=== PATIENT | female | born 1955 | race African-American/Black ===

== ENCOUNTER 2017-03-01 14:44 | Observation (INO) | payer MEDICAID ==
[~2017-03-01] VITALS: Ht 165.1 cm; Wt 85.0 kg
[~2017-03-01 14:44] MED LIST: LEVEMIR SQ; LISI-360 PO; NOVO7030P2 SQ; PROT40TA PO; RANI150 PO; SUCR1TAB PO; TYLE500T PO; ZOFR4TAB3 PO
[2017-03-01 15:13] VITALS: BP 124/65; PULSE 108; RESP 18; TEMP 98.7; O2SAT 99
[2017-03-01] MEDS ORDERED: SODIUM CHLORIDE 0.9% FLUSH 10 ML FLUSH IVF PRN (15:15)
[2017-03-01 15:18] VITALS: BP_SYST 118; BP_SYST 124; BP_DIAS 61; BP_DIAS 94; PULSE 112
[2017-03-01] MEDS: SODIUM CHLOR 0.9% 1000 ML INJ 1,000 ML IV SCH ×3 (15:27→20:47)
--- NOTE | 2017-03-01 15:34 | PD ---
HPI Chief Complaint: Chest Pain Time Seen by Provider: 17:11 Travel History International Travel<30 days: No Contact w/Intl Traveler<30days: No Traveled to known affect area: No History of Present Illness HPI This is a 61-year-old female history of hypertension, hyperlipidemia, diabetes mellitus, who presents at the request of her physician for admission to the hospital. The patient states she was seen at her doctor's office today and told him she was not feeling well. She's been having upper respiratory symptoms for the last 2-1/2 weeks with associated cough. She states that she caught a cold when she was visiting her relatives. She does report that she's just not been feeling well for the last several days. She reports chest pain however reports it's worse with cough. She reports no production and her cough. She was noted to have a blood sugar in the 300s at the doctor's office which is not normal for her. Patient also reports that she's been generally weak over the last several days as well. PFSH Past Medical History Blood Disorders: No Cancer: No Cardiovascular Problems: Yes (ANGINA) High Cholesterol: Yes Diabetes: Yes Patient Takes Glucophage: No Diminished Hearing: No Endocrine: Yes Fibromyalgia: Yes Gastrointestinal Disorders: No Genitourinary: No Headaches: Yes Hypertension: Yes Immune Disorder: No Implanted Vascular Access Dvce: No Musculoskeletal: Yes Neurologic: Yes (NEUROPATHY, VERTIGO,SYNCOPE) Psychiatric: No Reproductive: No Respiratory: No Immunizations Current: No ?: Not Menopausal: Yes : 4 Para: 4 Tubal Ligation: Yes Past Surgical History Gynecologic Surgery: Yes Hysterectomy: Yes Other Surgery: Yes Social History Alcohol Use: Yes (occasional ) Tobacco Use: No (quit) Substance Use: No (denies) Allergies-Medications (Allergen,Severity, Reaction): Coded Allergies: Codeine (Verified Allergy, Intermediate, Rash, 03/01/17) Reported Meds & Prescriptions Reported Meds & Active Scripts Active Reported Zofran Odt (Ondansetron Odt) 4 Mg Tab 4 Mg SL Q6HR PRN Topamax (Topiramate) 25 Mg Tab 25 Mg PO BID Carafate (Sucralfate) 1 Gm Tab 1 Gm PO BIDAC On empty stomach Zantac (Ranitidine HCl) 150 Mg Tab 150 Mg PO BID Flonase Nasal [place] (Fluticasone Nasal [place]) 50 Mcg/Act [place]olt 2 [place] EACH NARE DAILY Gabapentin 300 Mg Cap 300 Mg PO TID Lantus Inj (Insulin Glargine) 1,000 Unit/10 Ml Vial 30 Units SQ HS Humalog Inj (Insulin Human Lispro) 1,000 Unit/10 Ml Vial 5-9 Units SQ TIDAC SLIDING SCALE: 150-200=5 units, 201-250=7 units, 251-300=9 units Levemir Inj (Insulin Detemir) 1,000 unit/ 10 ML Vial 20 Units SQ HS Do not mix with any other Insulin. Symbicort Inh (Budesonide/Formoterol Fumarate) 160-4.5 Mcg/Act Aero 2 Puff INH Q12HR Pantoprazole (Pantoprazole Sodium) 40 Mg Tab 40 Mg PO BID Lisinopril 10 Mg Tab 10 Mg PO DAILY Singulair (Montelukast Sodium) 10 Mg Tab 10 Mg PO HS Review of Systems Except as stated in HPI: all other systems reviewed are Neg General / Constitutional: No: Fever, Chills Eyes: No: Blurred Vision, Photophobia HENT: Positive: Neck Pain, No: Headaches, Neck Stiffness (neck pain from coughing.) Cardiovascular: Positive: Chest Pain or Discomfort (also associated with cough) , No: Palpitations Respiratory: Positive: Cough, No: Shortness of Breath Gastrointestinal: No: Nausea, Abdominal Pain Musculoskeletal: Positive: Weakness (and relies), Pain (neck pain she reports from coughing), No: Myalgias Skin: No Rash, No Itching Neurologic: Positive: Weakness, No: Dizziness, Headache (unrealized), Change in Mentation Physical Exam Narrative GENERAL: Developed well-nourished female who appears ill in no acute respiratory distress. SKIN: Focused skin assessment warm/dry. HEAD: Atraumatic. Normocephalic. EYES: No scleral icterus. No injection or drainage. ENT: Mucous membranes pink and moist. NECK: Trachea midline. Supple. No JVD. CARDIOVASCULAR: Tachycardic with a rate in the low 100s. 106 on my examination. No obvious murmurs gallops rubs. RESPIRATORY: No accessory muscle use. Clear to auscultation. Breath sounds equal bilaterally. Decreased respiratory effort GASTROINTESTINAL: Abdomen soft, non-tender, nondistended. MUSCULOSKELETAL: No obvious deformities. No clubbing. No cyanosis. No edema. NEUROLOGICAL: Awake and alert. No obvious cranial nerve deficits. Motor grossly within normal limits. Normal speech. PSYCHIATRIC: Appropriate mood and affect; insight and judgment normal. Data Data Last Documented VS Vital Signs Date Time Temp Pulse Resp B/P Pulse Ox O2 Delivery O2 Flow Rate FiO2 03/01/17 15:18 112 124/61 118/94 03/01/17 15:13 18 99 Room Air 03/01/17 15:13 98.7 Orders Electrocardiogram (03/01/17 15:09) Basic Metabolic Panel (Bmp) (03/01/17 15:09) Ckmb (Isoenzyme) Profile (03/01/17 15:09) Complete Blood Count With Diff (03/01/17 15:) Magnesium (Mg) (03/01/17 15:) Prothrombin Time / Inr (Pt) (03/01/17 15:09) Act Partial Throm Time (Ptt) (03/01/17 15:09) Troponin I (03/01/17 15:) Chest, Single Ap (03/01/17 15:) Ecg Monitoring (03/01/17 15:09) Bilateral Bp Monitoring (03/01/17 15:09) Iv Access Insert/Monitor (03/01/17 15:) Oximetry (03/01/17 15:09) Oxygen Administration (03/01/17 15:09) Sodium Chloride 0.9% Flush (Ns Flush) (03/01/17 15:15) Sodium Chlor 0.9% 1000 Ml Inj (Ns 1000 M (03/01/17 15:30) D-Dimer (03/01/17 15:34) Insulin Human Regular Inj (Novolin R Inj (03/01/17 16:45) Admit Order (Ed Use Only) (03/01/17 17:25) Hydromorphone Pf Inj (Dilaudid Pf Inj) (03/01/17 17:30) Labs Laboratory Tests Test 03/01/17 15:10 White Blood Count 7.4 TH/MM3 Red Blood Count 5.46 MIL/MM3 Hemoglobin 10.8 GM/DL Hematocrit 34.3 % Mean Corpuscular Volume 62.8 FL Mean Corpuscular Hemoglobin 19.7 PG Mean Corpuscular Hemoglobin 31.4 % Concent Red Cell Distribution Width 18.3 % Platelet Count 182 TH/MM3 Mean Platelet Volume 9.4 FL Neutrophils (%) (Auto) 53.1 % Lymphocytes (%) (Auto) 37.4 % Monocytes (%) (Auto) 7.2 % Eosinophils (%) (Auto) 1.6 % Basophils (%) (Auto) 0.7 % Neutrophils # (Auto) 4.0 TH/MM3 Lymphocytes # (Auto) 2.8 TH/MM3 Monocytes # (Auto) 0.5 TH/MM3 Eosinophils # (Auto) 0.1 TH/MM3 Basophils # (Auto) 0.0 TH/MM3 CBC Comment AUTO DIFF Differential Total Cells 100 Counted Neutrophils % (Manual) 44 % Band Neutrophils % 6 % Lymphocytes % 41 % Monocytes % 6 % Eosinophils % 3 % Neutrophils # (Manual) 3.7 TH/MM3 Nucleated Red Blood Cells 1 /100 WBC Differential Comment FINAL DIFF MANUAL Toxic Vacuolation PRESENT Platelet Estimate NORMAL Platelet Morphology Comment ENLARGED Tear Drop Cells 1+ Stomatocytes 1+ Keratocytes OCC Prothrombin Time 10.7 SEC Prothromb Time International 1.0 RATIO Ratio Activated Partial 24.0 SEC Thromboplast Time Sodium Level 133 MEQ/L Potassium Level 4.8 MEQ/L Chloride Level 97 MEQ/L Carbon Dioxide Level 29.1 MEQ/L Anion Gap 7 MEQ/L Blood Urea Nitrogen 21 MG/DL Creatinine 0.92 MG/DL Estimat Glomerular Filtration 75 ML/MIN Rate Random Glucose 299 MG/DL Calcium Level 9.7 MG/DL Magnesium Level 2.2 MG/DL Total Creatine Kinase 73 U/L Troponin I LESS THAN 0.02 NG/ML MDM Medical Decision Making Medical Screen Exam Complete: Yes Emergency Medical Condition: Yes Differential Diagnosis ACS versus PE versus bronchitis versus musculoskeletal pain. Narrative Course 61-year-old female history of diabetes mellitus, hypertension, edema, was sent here for admission for chest pain with EKG changes. The patient has very atypical chest pain. She was noted to have a blood sugar in the 300s. Given this and given the fact that she was sent here by her doctor for evaluation, I feel is prudent to bring her under observation, rule her out, get her blood sugar under control. Her physician does not come to [facility] as he has an office in [place]. She has been given 6 units of Regular Insulin. She's also been given I V fluids. I spoke with the team the resident service and they 're willing to admit the patient under observation to their service. Diagnosis Primary Impression: Atypical chest pain Additional Impression: Uncontrolled diabetes mellitus with hyperglycemia Ibrahima De Dios MD Mar 01, 2017 15:34
[2017-03-01 15:45] LABS: PROTHROMBIN TIME - PATIENT 10.7 SEC (9.8-11.6)
[2017-03-01] MEDS ORDERED: HUMALOG SQ (15:48)
[2017-03-01] MEDS ORDERED: PANT40TA3 PO (15:48)
[2017-03-01] MEDS ORDERED: CARA1TAB6 PO (15:48)
[2017-03-01] MEDS ORDERED: TOPA25TA8 PO (15:48)
[2017-03-01] MEDS ORDERED: FLUT1SPR5 EACH NARE (15:48)
[2017-03-01] MEDS ORDERED: MONT10TA2 PO (15:48)
[2017-03-01] MEDS ORDERED: GABA300C5 PO (15:48)
[2017-03-01] MEDS ORDERED: ZOFR4TAB3 SL (15:48)
[2017-03-01] MEDS ORDERED: LEVEMIR SQ (15:48)
[2017-03-01] MEDS ORDERED: LISI10TA3 PO (15:48)
[2017-03-01] MEDS ORDERED: LANTUS2P SQ (15:48)
[2017-03-01] MEDS ORDERED: ZANT150T2 PO (15:48)
[2017-03-01] MEDS ORDERED: SYMB160A INH (15:48)
[2017-03-01 15:49] LABS: BASOPHIL % 0.7 % (0.0-2.0); EOSINOPHIL # 0.1 TH/MM3 (0-0.4); EOSINOPHIL % 1.6 % (0.0-4.0); HEMATOCRIT 34.3 % (35.0-46.0); LYMPH % 37.4 % (9.0-44.0); LYMPHOCYTE # 2.8 TH/MM3 (1.0-4.8); MEAN CELL VOLUME 62.8 FL (80.0-100.0); MEAN CORPUSCULAR HEMOGLOBIN 19.7 PG (27.0-34.0); MEAN CORPUSCULAR HGB CONC 31.4 % (32.0-36.0); MONO % 7.2 % (0.0-8.0); NEUT % 53.1 % (16.0-70.0); PLATELET COUNT 182 TH/MM3 (150-450); RED BLOOD COUNT 5.46 MIL/MM3 (4.00-5.30); RED CELL DISTRIBUTION WIDTH 18.3 % (11.6-17.2); WHITE BLOOD COUNT 7.4 TH/MM3 (4.0-11.0)
[2017-03-01 15:51] LABS: HEMO FLAGS AUTO DIFF
[2017-03-01 16:18] LABS: ANION GAP 7 MEQ/L (5-15); BICARBONATE 29.1 MEQ/L (21.0-32.0); BLOOD UREA NITROGEN 21 MG/DL (7-18); CHLORIDE 97 MEQ/L (98-107); GLOMERULAR FILTRATION RATE 75 ML/MIN (>89); MAGNESIUM 2.2 MG/DL (1.5-2.5); POTASSIUM 4.8 MEQ/L (3.5-5.1); SODIUM (NA) 133 MEQ/L (136-145)
[2017-03-01 16:19] LABS: CREATINE KINASE 73 U/L (26-192)
--- NOTE | 2017-03-01 16:33 | RADRPT ---
EXAM DATE/TIME: 03/01/2017 15:06 [facility] COMPARISON: CHEST SINGLE AP, November 04, 2014, 17:25. INDICATIONS : Chest pain. Weakness. MEDICAL HISTORY : Asthma. SURGICAL HISTORY : None. ENCOUNTER: Initial ACUITY: 1 day PAIN SCORE: 8/10 LOCATION: Bilateral chest FINDINGS: A single view of the chest demonstrates the lungs to be symmetrically aerated without evidence of mas s, infiltrate or effusion. Heart size is upper limits of normal and well compensated. Osseous struct ures are intact with stable degenerative spurring of the dorsal spine. CONCLUSION: Stable chest. No acute cardiopulmonary process Terrence Leon MD on March 01, 2017 at 16:31 Board Certified Radiologist. This report was verified electronically.
[2017-03-01 16:44] LABS: BANDS 6 % (0-6); CORRECTED NUCLEATED RBC 1 /100 WBC (0-0); EOSINOPHILS 3 % (0-4); NEUTROPHIL # MANUAL DIFF 3.7 TH/MM3 (1.8-7.7); POLYS (SEG NEUTROPHILS) 44 % (16-70); WBC DIFF SAMPLE 100
[2017-03-01] MEDS ORDERED: INSULIN HUMAN REGULAR 1,000 UNITS/10 ML VIAL IV PUSH ONE (16:45)
[2017-03-01 16:46] LABS: KERATOCYTES OCC (NORMAL); PLATELET ESTIMATE SMEAR NORMAL (NORMAL); PLATELET MORPHOLOGY ENLARGED (NORMAL); TEARDROP RBCS 1+ (NORMAL)
[2017-03-01 16:47] LABS: SCAN/DIFF FINAL DIFF MANUAL; STOMATOCYTES 1+ (NORMAL); TOXIC VACUOLATION PRESENT (NONE SEEN)
[2017-03-01] MEDS ORDERED: HYDROmorphone HCL PF 1 MG/ML VIAL IV PUSH ONE (17:30)
[2017-03-01 17:34] VITALS: BP 125/89; PULSE 102; RESP 18; O2SAT 98
[2017-03-01] MEDS ORDERED: ONDANSETRON HCL 4 MG/2 ML VIAL IVP PRN (17:45)
[2017-03-01] MEDS ORDERED: NALOXONE HCL 0.4 MG/ML AMP IV PRN (17:45)
[2017-03-01] MEDS ORDERED: SENNOSIDES 8.6 MG TAB PO PRN (17:45)
[2017-03-01] MEDS ORDERED: ACETAMINOPHEN 325 MG TAB PO PRN (17:45)
[2017-03-01] MEDS ORDERED: SODIUM CHLORIDE 0.9% FLUSH 10 ML FLUSH IV FLUSH PRN (17:45)
--- NOTE | 2017-03-01 17:49 | HHI.HP ---
[facility] Service Family Medicine Primary Care Physician Mike Paiz M.D. Admission Diagnosis atypical chest pain, uncontrolled hyperglycemia Diagnoses: International Travel<30 Days: No Contact w/Intl Traveler<30days: No Known Affected Area: No History of Present Illness 61 year old female presents with upper respiratory symptoms, chest pain, shortness of breath, and hyperglycemia. URI symptoms began 3 weeks ago, and include runny nose and coughing with sputum production. She has sore throat from coughing that is mild. No ear aches. Chest pain started in the last few days and is located in the mid-chest with radiation up to the jaw. They do get worse with coughing. It is associated with shortness of breath. It is also somewhat associated with exertion, but does happen at rest as well. It is sometimes associated with diaphoresis. She reports a history of angina but no specific heart problems in the past. She has shortness of breath with a history of COPD versus asthma. She also has increasing peripheral edema in her legs. She has a history of diabetes that is poorly controlled, insulin dependent. She has noticed her blood sugars are running in the 300's lately since she's gotten sick. She also has polydipsia and polyuria. She has also been having tachycardia lately with pulse in the low 100's. She has been hospitalized for shortness of breath twice in the past. Review of Systems Constitutional: COMPLAINS OF: Diaphoretic episodes, Fatigue, Change in appetite , DENIES: Fever, Weight gain, Weight loss, Dizziness Endocrine: COMPLAINS OF: Polydipsia, Polyuria, DENIES: Polyphagia Eyes: DENIES: Blurred vision, Diplopia, Vision loss, Double Vision Ears, nose, mouth, throat: COMPLAINS OF: Nasal discharge, Running Nose, DENIES : Hearing loss, Sinus Pain, Odynophagia Respiratory: COMPLAINS OF: Cough, Wheezing, Sputum production, Shortness of breath, DENIES: Hemoptysis Cardiovascular: COMPLAINS OF: Chest pain, Dyspnea on Exertion, Lower Extremity Edema, Orthopnea, DENIES: Palpitations, Claudication Gastrointestinal: COMPLAINS OF: Nausea, DENIES: Abdominal pain, Black stools, Bloody stools, Constipation, Diarrhea, Vomiting Genitourinary: COMPLAINS OF: Urinary frequency, Dysuria Musculoskeletal: DENIES: Joint pain Integumentary: DENIES: Rash Hematologic/lymphatic: DENIES: Lymphadenopathy Immunologic/allergic: DENIES: Eczema Neurologic: DENIES: Abnormal gait, Seizures Psychiatric: DENIES: Anxiety, Confusion, Mood changes, Depression Past Family Social History Past Medical History Diabetes type II not well controlled, insulin dependent Hyperlipidemia HTN COPD vs. asthma Thalassemia Angina Obstructive sleep apnea Past Surgical History Tubal ligation in 1977 Total hysterectomy 2007 Neck fusion in Reported Medications Reported Meds & Active Scripts Active Reported Zofran Odt (Ondansetron Odt) 4 Mg Tab 4 Mg SL Q6HR PRN Topamax (Topiramate) 25 Mg Tab 25 Mg PO BID Carafate (Sucralfate) 1 Gm Tab 1 Gm PO BIDAC On empty stomach Zantac (Ranitidine HCl) 150 Mg Tab 150 Mg PO BID Flonase Nasal [place] (Fluticasone Nasal [place]) 50 Mcg/Act [place] 2 [place] EACH NARE DAILY Gabapentin 300 Mg Cap 300 Mg PO TID Lantus Inj (Insulin Glargine) 1,000 Unit/10 Ml Vial 30 Units SQ HS Humalog Inj (Insulin Human Lispro) 1,000 Unit/10 Ml Vial 5-9 Units SQ TIDAC SLIDING SCALE: 150-200=5 units, 201-250=7 units, 251-300=9 units Levemir Inj (Insulin Detemir) 1,000 unit/ 10 ML Vial 20 Units SQ HS Do not mix with any other Insulin. Symbicort Inh (Budesonide/Formoterol Fumarate) 160-4.5 Mcg/Act Aero 2 Puff INH Q12HR Pantoprazole (Pantoprazole Sodium) 40 Mg Tab 40 Mg PO BID Lisinopril 10 Mg Tab 10 Mg PO DAILY Singulair (Montelukast Sodium) 10 Mg Tab 10 Mg PO HS Allergies: Coded Allergies: Codeine (Verified Allergy, Intermediate, Rash, 03/01/17) Active Ordered Medications Inpatient Medications Acetaminophen (Tylenol) 650 mg Q4H PRN PO FEVER OR PAIN; Start 03/01/17 at 17:45 Docusate Sodium (Colace) 100 mg Q12H PO ; Start 03/01/17 at 18:00 Enoxaparin Sodium (Lovenox Inj) 40 mg Q24H SQ ; Start 03/01/17 at 18:00 Hydromorphone HCl (Dilaudid Pf Inj) 0.5 mg ONCE ONCE IV PUSH Last administered on 03/01/17 17:30; Start 03/01/17 at 17:30; Stop 03/01/17 at 17:31; Status DC Insulin Human Regular (NovoLIN R INJ) 6 units ONCE ONCE IV PUSH Last administered on 03/01/17 16:45; Start 03/01/17 at 16:45; Stop 03/01/17 at 16:46; Status DC Naloxone HCl (Narcan Inj) 0.4 mg UNSCH PRN IV SEE LABEL COMMENTS; Start at 17:45; Status UNV Ondansetron HCl (Zofran Inj) 4 mg Q6H PRN IVP NAUSEA OR VOMITING; Start at 17:45 Sennosides (Senokot) 17.2 mg Q12H PRN PO CONSTIPATION; Start 03/01/17 at 17:45 Sodium Chloride (NS 1000 ml Inj) 1,000 ml @ 100 mls/hr Q10H IV Last administered on 03/01/17 17:35; Start 03/01/17 at 15:30 Sodium Chloride (NS Flush) 2 ml BID IV FLUSH ; Start 03/01/17 at 21:00 Sodium Chloride 2 ml 2 ml UNSCH PRN IVF FLUSH AFTER USING IV ACCESS; Start 03/01 at 15:15; Stop 03/01/17 at 17:44; Status DC Family History Mom: "bad heart" Father: heart attack in his 60's Social History Smoked, quit 30 years ago Never heavy smoker No alcohol use Worked as field technical assistant in store Currently not employed Lives alone 4 grown children Physical Exam Vital Signs Vital Signs Date Time Temp Pulse Resp B/P Pulse Ox O2 Delivery O2 Flow Rate FiO2 03/01/17 17:34 102 18 125/89 98 Room Air 03/01/17 15:18 112 124/61 118/94 03/01/17 15:13 18 99 Room Air 03/01/17 15:13 108 18 100 Room Air 03/01/17 15:13 Room Air 03/01/17 15:13 98.7 108 18 124/65 99 Room Air Physical Exam GENERAL: This is a well-nourished, well-developed patient, in no apparent distress. SKIN: No rashes, ecchymoses or lesions. Cool and dry. HEAD: Atraumatic. Normocephalic. No temporal or scalp tenderness. EYES: Pupils equal round and reactive. Extraocular motions intact. No scleral icterus. No injection or drainage. ENT: Nose without bleeding, purulent drainage or septal hematoma. Throat without erythema, tonsillar hypertrophy or exudate. Uvula midline. Airway patent. NECK: Trachea midline. No JVD or lymphadenopathy. Supple, nontender, no meningeal signs. CARDIOVASCULAR: Regular rate and rhythm without murmurs, gallops, or rubs. RESPIRATORY: Clear to auscultation. Breath sounds equal bilaterally. No wheezes , rales, or rhonchi. GASTROINTESTINAL: Abdomen soft, non-tender, nondistended. No hepato-splenomegaly , or palpable masses. No guarding. MUSCULOSKELETAL: Extremities without clubbing, cyanosis, or edema. No joint tenderness, effusion, or edema noted. No calf tenderness. Negative Homans sign bilaterally. NEUROLOGICAL: Awake and alert. Cranial nerves II through XII intact. Motor and sensory grossly within normal limits. Five out of 5 muscle strength in all muscle groups. Normal speech. Laboratory Laboratory Tests Test 03/01/17 15:10 White Blood Count 7.4 Red Blood Count 5.46 Hemoglobin 10.8 Hematocrit 34.3 Mean Corpuscular Volume 62.8 Mean Corpuscular Hemoglobin 19.7 Mean Corpuscular Hemoglobin 31.4 Concent Red Cell Distribution Width 18.3 Platelet Count 182 Mean Platelet Volume 9.4 Neutrophils (%) (Auto) 53.1 Lymphocytes (%) (Auto) 37.4 Monocytes (%) (Auto) 7.2 Eosinophils (%) (Auto) 1.6 Basophils (%) (Auto) 0.7 Neutrophils # (Auto) 4.0 Lymphocytes # (Auto) 2.8 Monocytes # (Auto) 0.5 Eosinophils # (Auto) 0.1 Basophils # (Auto) 0.0 CBC Comment AUTO DIFF Differential Total Cells 100 Counted Neutrophils % (Manual) 44 Band Neutrophils % 6 Lymphocytes % 41 Monocytes % 6 Eosinophils % 3 Neutrophils # (Manual) 3.7 Nucleated Red Blood Cells 1 Differential Comment FINAL DIFF MANUAL Toxic Vacuolation PRESENT Platelet Estimate NORMAL Platelet Morphology Comment ENLARGED Tear Drop Cells 1+ Stomatocytes 1+ Keratocytes OCC Prothrombin Time 10.7 Prothromb Time International 1.0 Ratio Activated Partial 24.0 Thromboplast Time Sodium Level 133 Potassium Level 4.8 Chloride Level 97 Carbon Dioxide Level 29.1 Anion Gap 7 Blood Urea Nitrogen 21 Creatinine 0.92 Estimat Glomerular Filtration 75 Rate Random Glucose 299 Calcium Level 9.7 Magnesium Level 2.2 Total Creatine Kinase 73 Troponin I LESS THAN 0.02 Result Diagram: 03/01/17 1510 03/01/17 1510 Imaging Last 72 hours Impressions Chest X-Ray 03/01/17 1509 Signed Impressions: Service Date/Time: February 15:06 - CONCLUSION: Stable chest. No acute cardiopulmonary process Terrence Leon MD Septic Shock Reassessment Heart: Other (tachycardia) Lungs: Other (mild wheezing) Skin: Warm Capillary Refill: <2 seconds Assessment and Plan Assessment and Plan 61 year old female being admitted for observation for chest pain, shortness of breath, URI symptoms, and hyperglycemia. Code Status FULL CODE Discussed Condition With Seen and discussed with Dr. Pacheco Will discuss with Dr. Miner Problem List: (1) Hyperglycemia due to type 2 diabetes mellitus Status: Acute Plan: Blood sugars are in the 300's at home, 300 on admission. Has been uncontrolled for a while, but worse while sick. Also with hypochloremia and hyponatremia, mild. Negative for urinary ketones. Bicarb normal. Anion gap normal. Alert and oriented. Does not quite meet criteria for HHS, but she does have dehydration with low sodium and low chloride and will need to be treated somewhat like HHH. Hyponatremia likely pseudo-hyponatremia, but she does have evidence for dehydration with polyuria, polydipsia, and dry mouth. - Check beta-hydroxybutyrate. - Give IVF for dehydration. Will start with 125 mls/hr, does have some peripheral edema and some questionable history of CHF. Watch fluid status carefully. - Will check urine to rule out UTI. Also having frequent urination, but likely polydipsia rather than UTI. - Check hydroxybutyrate - Recheck BMP tonight, monitor electrolytes. - Check A1C - Diabetes and nutrition education as she is poorly controlled (2) Chest pain Status: Acute Plan: Presenting with chest pain along with coughing, increasing shortness of breath. Has some exertional features, but also happens at rest. Differential includes acute LA, unstable angina, costochondritis from coughing, COPD exacerbation. Also has a significant history of GERD. Chest x-ray negative for acute process. - Trend EKG's and Troponins - Would benefit from stress test when stable (3) COPD (chronic obstructive pulmonary disease) Status: Acute Plan: COPD versus asthma, adult onset. Smoked in the past, quit 30 years ago. Was never a heavy smoker. No occupational hazards. Having increased wheezing at home. - Continue Symbicort - Continue Montelukast - DuoNebs q4hrs - Careful with adding steroids due to hyperglycemia - Will give Azithromycin for possible COPD exacerbation - Incentive spirometry - Follow up with contracts manager as an outpatient, may benefit from pulmonary rehab (4) URI (upper respiratory infection) Status: Acute Plan: - Dextromethorphan for cough - Runny nose is mild, can add antihistamine/decongestant if more severe - May be component of Mycoplasma given time course, will add Azithromycin (5) Peripheral edema Status: Acute Plan: Peripheral edema with increasing shortness of breath. Borderline heart size on chest x-ray. - Check BNP - ECHO to assess heart function (6) Thalassemia Status: Chronic Plan: Microcytic anemia with history of thalassemia, stable. (7) Essential hypertension Status: Chronic Plan: - Continue Lisinopril 10 mg qday (8) GERD (gastroesophageal reflux disease) Status: Chronic Plan: - Continue Pantoprazole, ranitidine - Continue Sucralfate (9) Nutrition, metabolism, and development symptoms Status: Acute Plan: - IVF with normal saline - Diabetic diet - Hyponatremic/hypochloremic with elevated blood sugars. Most likely pseudo- hyponatremia given elevated glucose. (10) No contraindication to deep vein thrombosis (DVT) prophylaxis Status: Acute Plan: - Lovenox 40 mg qday. Problem Qualifiers (1) Chest pain: Qualified Code: R07.1 - Chest pain on breathing Angel Duque MD R2 Mar 01, 2017 17:49
[2017-03-01] MEDS: DOCUSATE SODIUM 100 MG CAP PO SCH (17:57)
[2017-03-01] MEDS ORDERED: ENOXAPARIN SODIUM 40 MG/0.4 ML SYRINGE SQ SCH (18:00)
[2017-03-01 18:05] LABS: BLOOD, URINE NEG (NEG); GLUCOSE,URINE 1000 mg/dL (NEG); KETONE, URINE NEG (NEG); NITRITE,URINE NEG (NEG); SQUAMOUS EPITHELIAL CELL URINE 1 /hpf (0-5); URINE COLOR LIGHT-YELLOW (YELLW/STRAW)
[2017-03-01 18:06] LABS: COMMENT (UR) CULT NOT INDICATED; CULTURE IF INDICATED CULT NOT INDICATED
[2017-03-01 18:09] VITALS: O2SAT 100
[2017-03-01] MEDS ORDERED: DEXTROMETHORPHAN SYRUP 7.5MG/5ML UDC PO PRN (18:15)
[2017-03-01] MEDS ORDERED: GLUCAGON 1 MG/ML VIAL OTHER PRN (18:15)
[2017-03-01] MEDS ORDERED: DEXTROSE 50% IN WATER 50 ML VIAL(D50) IV PUSH PRN (18:15)
[2017-03-01 19:08] LABS: BLOOD GAS VENOUS BASE EXCESS 4.7 mmol/L (-2-2); BLOOD GAS VENOUS HCO3 29 mmol/L (22-26); BLOOD GAS VENOUS O2 CONTENT 8.6 Vol % (9.0-17.0); BLOOD GAS VENOUS O2 HGB SAT 63 % (70-76); BLOOD GAS VENOUS PCO2 48 mmHg (44-48); BLOOD GAS VENOUS PO2 35 mmHg (35-40); BLOOD GAS VENOUS pH 7.41 (7.360-7.400); CRITICAL VALUE NO; DRAW SITE CL; OXYGEN DEVICE RA; TEMP CORR TO 98.6
[2017-03-01] MEDS: TOPIRAMATE 25 MG TAB PO SCH (20:43)
[2017-03-01] MEDS: BUDESONIDE-FORMOTEROL 160/4.5 MCG INHALER INH SCH (20:43)
[2017-03-01] MEDS: AZITHROMYCIN 250 MG TAB PO SCH (20:43)
[2017-03-01] MEDS: FAMOTIDINE 20 MG TAB PO SCH (20:43)
[2017-03-01] MEDS: INSULIN DETEMIR 100 UNITS/ML VIAL SQ SCH (20:43)
[2017-03-01] MEDS: INSULIN ASPART SUPPLEMENTAL SCALE SQ SCH (20:53)
[2017-03-01] MEDS ORDERED: INSULIN DETEMIR 100 UNITS/ML VIAL SQ SCH (21:00)
[2017-03-01] MEDS ORDERED: MONTELUKAST SODIUM 10 MG TAB PO SCH (21:00)
[2017-03-01] MEDS ORDERED: SODIUM CHLORIDE 0.9% FLUSH 10 ML FLUSH IV FLUSH SCH (21:00)
[2017-03-01] MEDS: RESP: ALBUTEROL 2.5 MG/IPRATROPIUM 0.5 MG NEB (SCH) NEB ×2 (21:31→23:24)
[2017-03-01 21:34] LABS: BETA-HYDROXYBUTYRATE 0.13 MMOL/L (0.00-0.39); MAGNESIUM 2.2 MG/DL (1.5-2.5)
[2017-03-01 21:35] VITALS: O2SAT 99
[2017-03-01 22:41] VITALS: PULSE 108
[2017-03-02] MEDS: SODIUM CHLOR 0.9% 1000 ML INJ 1,000 ML IV SCH (02:30)
[2017-03-02] MEDS: RESP: ALBUTEROL 2.5 MG/IPRATROPIUM 0.5 MG NEB (SCH) NEB ×2 (03:01→07:54)
[2017-03-02 03:18] LABS: BASOPHIL % 0.7 % (0.0-2.0); EOSINOPHIL # 0.1 TH/MM3 (0-0.4); HEMATOCRIT 29.9 % (35.0-46.0); LYMPH % 43.8 % (9.0-44.0); LYMPHOCYTE # 2.9 TH/MM3 (1.0-4.8); MEAN CORPUSCULAR HEMOGLOBIN 19.6 PG (27.0-34.0); MEAN CORPUSCULAR HGB CONC 31.1 % (32.0-36.0); MONO % 8.1 % (0.0-8.0); NEUT % 45.4 % (16.0-70.0); PLATELET COUNT 122 TH/MM3 (150-450); RED BLOOD COUNT 4.74 MIL/MM3 (4.00-5.30); RED CELL DISTRIBUTION WIDTH 18.4 % (11.6-17.2); WHITE BLOOD COUNT 6.5 TH/MM3 (4.0-11.0)
[2017-03-02 03:21] LABS: HEMO FLAGS AUTO DIFF
[2017-03-02 03:39] LABS: ANION GAP 7 MEQ/L (5-15); BICARBONATE 28.5 MEQ/L (21.0-32.0); BLOOD UREA NITROGEN 16 MG/DL (7-18); CHLORIDE 103 MEQ/L (98-107); GLOMERULAR FILTRATION RATE 127 ML/MIN (>89); POTASSIUM 4.2 MEQ/L (3.5-5.1); SODIUM (NA) 138 MEQ/L (136-145)
[2017-03-02 04:12] LABS: OVALOCYTES 1+ (NORMAL); PLATELET ESTIMATE SMEAR LOW (NORMAL); PLATELET MORPHOLOGY NORMAL (NORMAL); SCAN/DIFF AUTO DIFF CONFIRMED
[2017-03-02 04:14] LABS: ACANTHOCYTES OCC (NORMAL)
[2017-03-02 04:31] VITALS: BP 113/57; PULSE 93; RESP 18; TEMP 98.7; O2SAT 96
[2017-03-02] MEDS: DOCUSATE SODIUM 100 MG CAP PO SCH (06:10)
[2017-03-02] MEDS: INSULIN ASPART SUPPLEMENTAL SCALE SQ SCH (06:16)
[2017-03-02] MEDS ORDERED: PANTOPRAZOLE SOD 40 MG DELAYED RELEASE TAB PO SCH (07:00)
[2017-03-02] MEDS ORDERED: SUCRALFATE 1 GM TAB PO SCH (07:00)
[2017-03-02 08:00] VITALS: PULSE 98
[2017-03-02] MEDS ORDERED: FLUTICASONE PROPIONATE 50 MCG/ACT 16 GM NASAL SPRAY EACH NARE SCH (09:00)
[2017-03-02] MEDS ORDERED: LISINOPRIL 10 MG TAB PO SCH (09:00)
[2017-03-02] MEDS ORDERED: GABAPENTIN 300 MG CAP PO SCH (09:00)
[2017-03-02] MEDS: FAMOTIDINE 20 MG TAB PO SCH (09:07)
[2017-03-02] MEDS: AZITHROMYCIN 250 MG TAB PO SCH (09:07)
[2017-03-02] MEDS: TOPIRAMATE 25 MG TAB PO SCH (09:08)
[2017-03-02] MEDS: INSULIN DETEMIR 100 UNITS/ML VIAL SQ SCH (09:08)
[2017-03-02] MEDS: BUDESONIDE-FORMOTEROL 160/4.5 MCG INHALER INH SCH (09:08)
--- NOTE | 2017-03-02 09:10 | HHI.FPPN ---
Subjective Remarks Shirley Corona is a 61yo lady with medical history significant for suspected COPD and DM II admitted for URI symptoms, cough, and chest pain. Her URI has began three weeks ago, with symptoms such as productive cough, sore throat, and rhinorrhea. A few days ago, she developed chest pain which was located in mid chest and radiated to her left shoulder and jaw. Pain is worse with coughing. She does report that it is associated with exertion, but also occurs at rest at times. For further details, please see resident H&P. This morning, she reports that her chest pain and breathing are a little better. She continues to have a dry, hacky, frequent cough. Rhinorrhea has improved. Peripheral edema has resolved. ROS: + cough. + chest pain (better this AM); SOB (Better this AM). No fever, no ear aches. + abdominal pain, LUQ. All other systems reviewed are negative. PMH/PSxH/SocHx/FamHx: Per resident H&P. Significant for: DM II, hyperlipidemia, HTN, COPD, thalassemia, sleep apnea. BTL, ESTER, neck fusion. Heart disease in mother and father. Prior smoker (quit ). No alcohol abuse. Lives alone. Objective Vitals Vital Signs Date Time Temp Pulse Resp B/P Pulse Ox O2 Delivery O2 Flow Rate FiO2 03/02/17 04:31 98.7 93 18 113/57 96 03/01/17 22:41 108 03/01/17 21:35 99 03/01/17 18:09 100 21 03/01/17 17:34 102 18 125/89 98 Room Air 03/01/17 15:18 112 124/61 118/94 03/01/17 15:13 18 99 Room Air 03/01/17 15:13 108 18 100 Room Air 03/01/17 15:13 Room Air 03/01/17 15:13 98.7 108 18 124/65 99 Room Air I/O 03/01/17 03/01/17 03/01/17 03/02/17 03/02/17 03/02/17 07:00 15:00 23:00 07:00 15:00 23:00 Intake Total 421 ml Balance 421 ml Intake Oral 221 ml IV Total 200 ml # Voids 1 Result Diagram: 03/02/17 0244 03/02/17 0244 Objective Remarks GENERAL: in NAD, no resp distress. Talks in complete sentences. Frequent dry cough during exam/interview. HEENT: NCAT, EOMI, no scleral icterus, no conjunctival injection. MMM. NECK: Supple, no meningeal signs. CV: RRR. S1, S2. No murmurs. CHEST/PULM: CTAB, no crackles, no wheezes. + tenderness to palpation at sternum and left anterior chest. ABD/GI: +BS, soft, nontender, nondistended. Obese. EXT: 2+ DP pulses. No significant edema. No calf tenderness. NEURO: Awake, alert. Normal muscle tone SKIN: No rashes, no jaundice. PSYCH: Mood and affect are appropriate. Speech fluent. Does not appear to respond to internal stimuli. A/P Assessment and Plan 61 year old female being admitted for observation for chest pain, shortness of breath, URI symptoms, and hyperglycemia. Attending Attestation Patient seen, examined, and discussed with resident team. Problem List: (1) Hyperglycemia due to type 2 diabetes mellitus Status: Acute Plan: Glucose has improved overnight with insulin and IV fluid. Discussed importance of outpatient glucose control to minimize her risk of complications of DM II. Diabetic education, nutrition consult. (2) Chest pain Status: Resolved Plan: Presenting with chest pain along with coughing, increasing shortness of breath. Suspect costochondritis. Has some exertional features, but also happens at rest. Differential includes acute [place], unstable angina, costochondritis from coughing, COPD exacerbation. Also has a significant history of GERD. Chest x- ray negative for acute process. - Reassured by stable troponins overnight. - Would benefit from stress test as an outpatient when patient recovers from her URI. (3) COPD (chronic obstructive pulmonary disease) Status: Chronic Plan: COPD versus asthma, adult onset. Smoked in the past, quit 30 years ago. Was never a heavy smoker. No occupational hazards. Having increased wheezing at home. - Continue Symbicort - Continue Montelukast - DuoNebs q4hrs - Continue Azithromycin for possible COPD exacerbation - Incentive spirometry (4) URI (upper respiratory infection) Status: Acute Plan: - Dextromethorphan for cough - Runny nose is mild, can add antihistamine/decongestant if more severe - May be component of Mycoplasma given time course, will add Azithromycin (5) Peripheral edema Status: Resolved Plan: Peripheral edema with increasing shortness of breath at admission. Lungs clear on exam. - BNP is reassuring. (6) Thalassemia Status: Chronic Plan: Microcytic anemia with history of thalassemia, hemoglobin is stable. (7) Essential hypertension Status: Chronic Plan: - Continue Lisinopril 10 mg qday (8) GERD (gastroesophageal reflux disease) Status: Chronic Plan: - Continue Pantoprazole, ranitidine - Continue Sucralfate Problem Qualifiers (1) Chest pain: Qualified Code: R07.1 - Chest pain on breathing Kayla Miner MD Mar 02, 2017 09:09 Plan: - Continue Lisinopril 10 mg qday (8) GERD (gastroesophageal reflux disease) Status: Chronic Plan: - Continue Pantoprazole, ranitidine - Continue Sucralfate (9) Nutrition, metabolism, and development symptoms Status: Acute Plan: - IVF with normal saline - Diabetic diet - Hyponatremic/hypochloremic with elevated blood sugars. Most likely pseudo- hyponatremia given elevated glucose. (10) No contraindication to deep vein thrombosis (DVT) prophylaxis Status: Acute Plan: - Lovenox 40 mg qday. Problem Qualifiers (1) Chest pain: Qualified Code: R07.1 - Chest pain on breathing Kayla Miner MD Mar 02, 2017 09:09 Kayla Miner MD Mar 02, 2017 09:09
[2017-03-02] MEDS ORDERED: AZIT250T3 PO (09:46)
--- NOTE | 2017-03-02 09:48 | HHI.DCPOC ---
Discharge Care Plan Diagnosis: (1) URI (upper respiratory infection) (2) Atypical chest pain Goals to Promote Your Health * To prevent worsening of your condition and complications * To maintain your health at the optimal level Directions to Meet Your Goals Take your medications as prescribed Follow your dietary instruction Follow activity as directed Keep your appointments as scheduled Take your immunizations and boosters as scheduled If your symptoms worsen call your PCP, if no PCP go to Urgent Care Center or Emergency Room Smoking is Dangerous to Your Health. Avoid second hand smoke Call the 24-hour hour crisis hotline for domestic abuse at Prema Kc MD R3 Mar 02, 2017 09:47
--- NOTE | 2017-03-02 13:49 | EKG ---
Date Performed: 03/01/2017 Time Performed: 15:20:05 PTAGE: 61 years EKG: SINUS TACHYCARDIA NONSPECIFIC T-WAVE ABNORMALITY ABNORMAL RHYTHM ECG Compared to prior trac ing no significant change PREVIOUS TRACING : 08/23/2016 13.17 DOCTOR: Julian Florence Interpretating Date/Time 03/02/2017 13:42:13
[2017-03-02 16:16] LABS: HEMOGLOBIN A1a 2.2 %; HEMOGLOBIN A1b 1.2 %; HEMOGLOBIN Ao 73.5 %; HEMOGLOBIN F 4.6 %; HEMOGLOBIN LA1C 2.3 %; HEMOGLOBIN P3 5.3 %
[2017-03-12 09:20] LABS: STAT YES
== END 2017-03-02 15:06 | disposition home or self-care (01) ==
LOC: NEPC 14:44 → NEDA 17:30 → NEPGCP 18:51
PROVIDERS: ADMIT Family Medicine; ATTEND Family Medicine
DX: R07.9 Chest pain, unspecified (principal); E11.65 Type 2 diabetes mellitus with hyperglycemia; E86.0 Dehydration; J44.9 Chronic obstructive pulmonary disease, unspecified; E87.8 Other disorders of electrolyte and fluid balance, not elsewhere classified; D56.9 Thalassemia, unspecified; J06.9 Acute upper respiratory infection, unspecified; E87.1 Hypo-osmolality and hyponatremia; R60.0 Localized edema; E78.5 Hyperlipidemia, unspecified; K21.9 Gastro-esophageal reflux disease without esophagitis; I10 Essential (primary) hypertension; G47.33 Obstructive sleep apnea (adult) (pediatric); E11.40 Type 2 diabetes mellitus with diabetic neuropathy, unspecified; Z79.4 Long term (current) use of insulin; Z87.891 Personal history of nicotine dependence; Z79.51 Long term (current) use of inhaled steroids
CPT/HCPCS: 71010; 80048; 81001; 82010; 82550; 82805; 82948; 83036; 83735; 83880; 84100; 84443; 84484; 85007; 85025; 85027; 85379; 85610; 85730; 93005; 94150; 94664; 96374; 96375; 99285; G0378; J1170; J1650; J1815; J7030

== ENCOUNTER → 2017-05-03 | Outpatient (CLI) | payer MEDICAID ==
[~2017-05-03] MED LIST changes: +AZIT250T3 PO; +CARA1TAB6 PO; +FLUT1SPR5 EACH NARE; +GABA300C5 PO; +HUMALOG SQ; +LANTUS2P SQ; -LISI-360 PO; +LISI10TA3 PO; +MONT10TA2 PO; -NOVO7030P2 SQ; +PANT40TA3 PO; -PROT40TA PO; -RANI150 PO; -SUCR1TAB PO; +SYMB160A INH; +TOPA25TA8 PO; -TYLE500T PO; +ZANT150T2 PO; -ZOFR4TAB3 PO; +ZOFR4TAB3 SL
--- NOTE | 2017-05-03 10:13 | RADRPT ---
EXAM DATE/TIME: 05/03/2017 09:46 [facility] COMPARISON: No previous studies available for comparison. INDICATIONS : Dysphagia, throat closes off. FLUORO TIME: 2.0 minutes IMAGE COUNT: 11 CONTRAST: 1. Liquid E-Z Paque Barium Sulfate (60% w/v, 41% w.w) MEDICAL HISTORY : Gastroesophageal reflux disease. vasomotor rhinitis SURGICAL HISTORY : anterior cervical spine surgery in the ENCOUNTER: Initial ACUITY: 1 month PAIN SCORE: 6/10 LOCATION: Bilateral neck FINDINGS: The patient was examined in a semierect position. The patient initiated swallowing normally. No pablo dence of aspiration. The mucosal pattern of the esophagus is normal. The diameter of the distal one third the esophagus distends significantly during swallowing and remains moderately distended. The GE junction, however, is normal in dimension when it opens. There is prompt passage of contrast thro ugh the esophagus without evidence of retention. No episodes of gastroesophageal reflux was seen wit h direct manual compression the epigastric region. CONCLUSION: 1. Normal mechanism of swallowing. 2. The diameter of the distal one third of the esophagus is intermittently large, but there is no pablo dence of achalasia; the gastroesophageal junction is normal diameter when the sphincter relaxes. Pastor Arias MD on May 03, 2017 at 10:08 Board Certified Radiologist. This report was verified electronically.
== END ==
LOC: HRAD 09:13
PROVIDERS: ATTEND Otolaryngology
DX: H60.543 Acute eczematoid otitis externa, bilateral (principal); R05 Cough; R13.10 Dysphagia, unspecified; K21.9 Gastro-esophageal reflux disease without esophagitis; H92.03 Otalgia, bilateral; J30.0 Vasomotor rhinitis; J38.7 Other diseases of larynx
CPT/HCPCS: 74230

== ENCOUNTER 2018-05-05 20:12 | Inpatient (IN) | payer MEDICAID ==
[~2018-05-05] VITALS: Ht 165.1 cm; Wt 90.3 kg
[~2018-05-05 20:12] MED LIST changes: -TOPA25TA8 PO; +TOPI25 PO
[2018-05-05] MEDS ORDERED: IOHEXOL 350 MG/ML 10 ML VIAL (for RAD DIAG) IVCONTRAST ONE (20:13)
[2018-05-05 20:24] VITALS: BP 135/63; PULSE 111; RESP 18; TEMP 100.6; O2SAT 98
[2018-05-05 20:46] VITALS: BP 138/80; PULSE 112; RESP 12; O2SAT 98
[2018-05-05] MEDS ORDERED: SODIUM CHLOR 0.9% 1000 ML INJ 1,000 ML IV ONE ×3 (20:55)
[2018-05-05 20:58] VITALS: RESP 12; O2SAT 100
[2018-05-05] MEDS ORDERED: PIPERACIL-TAZO 3.375 GM PREMIX 50 ML IV ONE (21:00)
[2018-05-05] MEDS ORDERED: ACETAMINOPHEN 325 MG TAB PO ONE (21:00)
[2018-05-05] MEDS ORDERED: VANCOMYCIN INJ 1,450 MG in SODIUM CHLORID 0.9% 500 ML INJ 500 ML IV ONE (21:00)
--- NOTE | 2018-05-05 21:09 | PD ---
HPI Chief Complaint: General Weakness Time Seen by Provider: 20:33 Travel History International Travel<30 days: No Contact w/Intl Traveler<30days: No Traveled to known affect area: No History of Present Illness HPI Patient is a 62-year-old female with history of insulin-dependent type 2 diabetes, hyperlipidemia, hypertension, COPD, neuropathy, thalassemia, angina, obstructive sleep apnea, presents the emergency room with multiple complaints. Patient reports that since this morning, she has not been feeling well. Patient reports that she noticed that the left side of her neck appeared swollen this morning, reports that she has been having pains with range of motion to her left arm due to her neck pain. Patient reports that overall, she has been feeling weak, reports that she has loss of appetite. Reports that her neuropathy is acting up on her, reports that she feels weak in her lower extremities, she does use a cane to ambulate, reports overall increased weakness. Patient denies any fevers or chills at home, denies any chest pain or shortness of breath. Reports that she also began to have a nonproductive cough today. PFSH Past Medical History Blood Disorders: No Heart Rhythm Problems: No Cancer: No Cardiovascular Problems: Yes (ANGINA) High Cholesterol: Yes Chemotherapy: No Chest Pain: Yes Congestive Heart Failure: No Diabetes: Yes Patient Takes Glucophage: No Diminished Hearing: No Endocrine: Yes Fibromyalgia: Yes Gastrointestinal Disorders: No Genitourinary: No Headaches: Yes Hypertension: Yes Immune Disorder: No Implanted Vascular Access Dvce: No Musculoskeletal: Yes Neurologic: Yes (NEUROPATHY, VERTIGO,SYNCOPE) Psychiatric: No Reproductive: No Respiratory: No Immunizations Current: No Radiation Therapy: No Thyroid Disease: No Tetanus Vaccination: Unknown Influenza Vaccination: Yes ?: Not Menopausal: Yes : 4 Para: 4 Tubal Ligation: Yes Past Surgical History Gynecologic Surgery: Yes Hysterectomy: Yes Other Surgery: Yes Social History Alcohol Use: Yes (occasional ) Tobacco Use: No (quit) Substance Use: No (denies) Allergies-Medications (Allergen,Severity, Reaction): Coded Allergies: codeine (Unverified Allergy, Intermediate, Rash, 05/05/18) Reported Meds & Prescriptions Reported Meds & Active Scripts Active Reported Zantac (Ranitidine HCl) 150 Mg Tab 150 Mg PO BID Flonase Nasal Huntington (Fluticasone Nasal Huntington) 50 Mcg/Act Huntington 2 Huntington EACH NARE DAILY Gabapentin 300 Mg Cap 300 Mg PO TID Lantus Inj (Insulin Glargine) 1,000 Unit/10 Ml Vial 30 Units SQ HS Humalog Inj (Insulin Human Lispro) 1,000 Unit/10 Ml Vial 5-9 Units SQ TIDAC SLIDING SCALE: 150-200=5 units, 201-250=7 units, 251-300=9 units Levemir Inj (Insulin Detemir) 1,000 unit/ 10 ML Vial 20 Units SQ HS Do not mix with any other Insulin. Symbicort Inh (Budesonide/Formoterol Fumarate) 160-4.5 Mcg/Act Aero 2 Puff INH Q12HR Pantoprazole (Pantoprazole Sodium) 40 Mg Tab 40 Mg PO BID Singulair (Montelukast Sodium) 10 Mg Tab 10 Mg PO HS Review of Systems General / Constitutional: No: Fever, Chills Eyes: No: Visual changes HENT: Positive: Neck Pain, No: Headaches, Neck Stiffness Cardiovascular: No: Chest Pain or Discomfort Respiratory: No: Shortness of Breath Gastrointestinal: No: Abdominal Pain Genitourinary: No: Dysuria Musculoskeletal: Positive: Arthralgias, Weakness, No: Pain Skin: No Rash Neurologic: Positive: Weakness Psychiatric: No: Depression Endocrine: No: Polydipsia Hematologic/Lymphatic: No: Easy Bruising Physical Exam Narrative GENERAL: Mild distress SKIN: Focused skin assessment warm/dry. HEAD: Atraumatic. Normocephalic. EYES: Pupils equal and round. No scleral icterus. No injection or drainage. ENT: No nasal bleeding or discharge. Mucous membranes pink and moist. NECK: Trachea midline. No JVD. Patient with fullness to her left neck CARDIOVASCULAR: Tachycardia. No murmur appreciated. RESPIRATORY: No accessory muscle use. Clear to auscultation. Breath sounds equal bilaterally. GASTROINTESTINAL: Abdomen soft, non-tender, nondistended. Hepatic and splenic margins not palpable. MUSCULOSKELETAL: No obvious deformities. No clubbing. No cyanosis. No edema. NEUROLOGICAL: Awake and alert. No obvious cranial nerve deficits. Motor grossly within normal limits. Normal speech. PSYCHIATRIC: Appropriate mood and affect; insight and judgment normal. Data Data Last Documented VS Vital Signs Date Time Temp Pulse Resp B/P (MAP) Pulse Ox O2 Delivery O2 Flow Rate FiO2 05/05/18 20:58 12 100 Room Air 05/05/18 20:46 112 05/05/18 20:24 100.6 Orders Orders Electrocardiogram (05/05/18 ) Sepsis Workup Initiated (05/05/18 ) Complete Blood Count With Diff (05/05/18 20:55) Comprehensive Metabolic Panel (05/05/18 20:55) Prothrombin Time / Inr (Pt) (05/05/18 20:55) Act Partial Throm Time (Ptt) (05/05/18 20:55) Lactic Acid Sepsis Protocol (05/05/18 20:55) Magnesium (Mg) (05/05/18 20:55) Lipase (05/05/18 20:55) Ckmb (Isoenzyme) Profile (05/05/18 20:55) Troponin I (05/05/18 20:55) Urinalysis - C+S If Indicated (05/05/18 20:55) Influenzae A/B Antigen (05/05/18 20:55) Blood Culture (05/05/18 20:55) Chest, Single Ap (05/05/18 20:55) Blood Glucose (05/05/18 20:55) Ecg Monitoring (05/05/18 20:55) Iv Access Insert/Monitor (05/05/18 20:55) Oximetry (05/05/18 20:55) Acetaminophen (Tylenol) (05/05/18 21:00) Sodium Chlor 0.9% 1000 Ml Inj (Ns 1000 M (05/05/18 20:55) Sodium Chlor 0.9% 1000 Ml Inj (Ns 1000 M (05/05/18 20:55) Sodium Chlor 0.9% 1000 Ml Inj (Ns 1000 M (05/05/18 20:55) Piperacil-Tazo 3.375 Gm Premix (Zosyn 3. (05/05/18 21:00) Vancomycin Inj (Vancomycin Inj) (05/05/18 21:00) Ct Soft Tiss Neck W Iv Cont (05/05/18 ) Group A Rapid Strep Screen (05/05/18 20:55) Strep Culture (Group A) (05/05/18 21:15) Iohexol 350 Inj (Omnipaque 350 Inj) (05/05/18 20:13) Labs Laboratory Tests Test 05/05/18 21:10 05/05/18 21:15 05/05/18 23:22 White Blood Count 10.6 TH/MM3 Red Blood Count 5.32 MIL/MM3 Hemoglobin 10.4 GM/DL Hematocrit 31.9 % Mean Corpuscular Volume 60.0 FL Mean Corpuscular Hemoglobin 19.6 PG Mean Corpuscular Hemoglobin Concent 32.7 % Red Cell Distribution Width 18.8 % Platelet Count 136 TH/MM3 Mean Platelet Volume 8.6 FL Neutrophils (%) (Auto) 71.0 % Lymphocytes (%) (Auto) 21.2 % Monocytes (%) (Auto) 6.9 % Eosinophils (%) (Auto) 0.5 % Basophils (%) (Auto) 0.4 % Neutrophils # (Auto) 7.5 TH/MM3 Lymphocytes # (Auto) 2.2 TH/MM3 Monocytes # (Auto) 0.7 TH/MM3 Eosinophils # (Auto) 0.0 TH/MM3 Basophils # (Auto) 0.0 TH/MM3 CBC Comment DIFF FINAL Differential Comment Prothrombin Time 10.2 SEC Prothromb Time International Ratio 1.0 RATIO Activated Partial Thromboplast Time 25.3 SEC Blood Urea Nitrogen 13 MG/DL Creatinine 1.00 MG/DL Random Glucose 313 MG/DL Total Protein 8.0 GM/DL Albumin 3.3 GM/DL Calcium Level 9.3 MG/DL Magnesium Level 1.5 MG/DL Alkaline Phosphatase 91 U/L Aspartate Amino Transf (AST/SGOT) 7 U/L Alanine Aminotransferase (ALT/SGPT) 16 U/L Total Bilirubin 0.6 MG/DL Sodium Level 134 MEQ/L Potassium Level 4.0 MEQ/L Chloride Level 97 MEQ/L Carbon Dioxide Level 25.2 MEQ/L Anion Gap 12 MEQ/L Estimat Glomerular Filtration Rate 68 ML/MIN Total Creatine Kinase 31 U/L Troponin I LESS THAN 0.02 NG/ML Lipase 70 U/L Lactic Acid Level 2.5 mmol/L [facility] Medical Decision Making Medical Screen Exam Complete: Yes Emergency Medical Condition: Yes Medical Record Reviewed: Yes Interpretation(s) EKG at 1953: Sinus tach at 111bpm, qt/qtc: 330/396, non specific t wave changes , ekg similar to ekg from 03/01/17 Vital Signs Date Time Temp Pulse Resp B/P (MAP) Pulse Ox O2 Delivery O2 Flow Rate FiO2 05/05/18 20:58 12 100 Room Air 05/05/18 20:46 112 12 138/80 (99) 98 Room Air 05/05/18 20:44 112 12 98 Room Air 05/05/18 20:24 100.6 111 18 135/63 (87) 98 Differential Diagnosis Sepsis, strep pharyngitis, abscess, electrolyte abnormality, ACS, arrhythmia Narrative Course During the course of the patients emergency department visit, the patients history, examination, and differential diagnosis were reviewed with the patient. The patient was placed on a cardiac technician with oximetry and frequent blood pressure monitoring. The patient had an IV access obtained and blood work sent for analysis. Vital Signs Date Time Temp Pulse Resp B/P (MAP) Pulse Ox O2 Delivery O2 Flow Rate FiO2 05/05/18 20:58 12 100 Room Air 05/05/18 20:46 112 12 138/80 (99) 98 Room Air 05/05/18 20:44 112 12 98 Room Air 05/05/18 20:24 100.6 111 18 135/63 (87) 98 The patient was initially provided IVF, IV zosyn, IV vancomycin and acetaminophen A septic workup was initiated as patient is febrile with temperature 100.6 and is tachycardic with a heart rate 112 The patients laboratory studies were reviewed and remarkable for Laboratory Tests Test 05/05/18 21:10 05/05/18 21:15 05/05/18 23:22 White Blood Count 10.6 TH/MM3 (4.0-11.0) Red Blood Count 5.32 MIL/MM3 (4.00-5.30) Hemoglobin 10.4 GM/DL (11.6-15.3) Hematocrit 31.9 % (35.0-46.0) Mean Corpuscular Volume 60.0 FL (80.0-100.0) Mean Corpuscular Hemoglobin 19.6 PG (27.0-34.0) Mean Corpuscular Hemoglobin Concent 32.7 % (32.0-36.0) Red Cell Distribution Width 18.8 % (11.6-17.2) Platelet Count 136 TH/MM3 (150-450) Mean Platelet Volume 8.6 FL (7.0-11.0) Neutrophils (%) (Auto) 71.0 % (16.0-70.0) Lymphocytes (%) (Auto) 21.2 % (9.0-44.0) Monocytes (%) (Auto) 6.9 % (0.0-8.0) Eosinophils (%) (Auto) 0.5 % (0.0-4.0) Basophils (%) (Auto) 0.4 % (0.0-2.0) Neutrophils # (Auto) 7.5 TH/MM3 (1.8-7.7) Lymphocytes # (Auto) 2.2 TH/MM3 (1.0-4.8) Monocytes # (Auto) 0.7 TH/MM3 (0-0.9) Eosinophils # (Auto) 0.0 TH/MM3 (0-0.4) Basophils # (Auto) 0.0 TH/MM3 (0-0.2) CBC Comment DIFF FINAL Differential Comment Prothrombin Time 10.2 SEC (9.8-11.6) Prothromb Time International Ratio 1.0 RATIO Activated Partial Thromboplast Time 25.3 SEC (24.3-30.1) Blood Urea Nitrogen 13 MG/DL (7-18) Creatinine 1.00 MG/DL (0.50-1.00) Random Glucose 313 MG/DL (74-106) Total Protein 8.0 GM/DL (6.4-8.2) Albumin 3.3 GM/DL (3.4-5.0) Calcium Level 9.3 MG/DL (8.5-10.1) Magnesium Level 1.5 MG/DL (1.5-2.5) Alkaline Phosphatase 91 U/L (45-117) Aspartate Amino Transf (AST/SGOT) 7 U/L (15-37) Alanine Aminotransferase (ALT/SGPT) 16 U/L (10-53) Total Bilirubin 0.6 MG/DL (0.2-1.0) Sodium Level 134 MEQ/L (136-145) Potassium Level 4.0 MEQ/L (3.5-5.1) Chloride Level 97 MEQ/L (98-107) Carbon Dioxide Level 25.2 MEQ/L (21.0-32.0) Anion Gap 12 MEQ/L (5-15) Estimat Glomerular Filtration Rate 68 ML/MIN (>89) Total Creatine Kinase 31 U/L (26-192) Troponin I LESS THAN 0.02 NG/ML Lipase 70 U/L (73-393) Lactic Acid Level 2.5 mmol/L (0.4-2.0) Radiology studies were reviewed and remarkable for Last Impressions Chest X-Ray 05/05/182054 Signed Impressions: CONCLUSION: No active disease. Minimal basilar atelectasis. Neck CT 05/05/18 0000 Signed Impressions: CONCLUSION: No acute findings identified. All lab work and results were reviewed, patient with a white blood cell count of 10.6, hemoglobin of 10.4, hematocrit 31.9, platelets 136 Lactic acid is 2.5, she is tachycardic and febrile with a temperature of 100.6, she was given Tylenol for fever. Group A strep is negative, influenza was negative, patient has been pancultured. I am unsure what patient source of infection is at this time, she has been given Zosyn as well as vancomycin as she does have SIRS criteria. Plan to observe her overnight in the hospital case reviewed Dr Alonso who accepts pt to service Diagnosis Primary Impression: SIRS (systemic inflammatory response syndrome) Admitting Information Admitting Physician Requests: Admit Marquita Gallagher DO May 05, 2018 21:09
--- NOTE | 2018-05-05 21:20 | RADRPT ---
EXAM DATE: 05/05/2018 9:10 PM EDT AGE/SEX: 62 years / Female INDICATIONS: Cough. Chest pain. CLINICAL DATA: This is the patient's initial encounter. Patient reports that signs and symptoms have been present for 2 days and indicates a pain score of 10/10. MEDICAL/SURGICAL HISTORY: . Gastroesophageal reflux disease. Vasomotor rhinitis. Asthma. . ant erior cervical spine surgery in the [place] [facility] [place]. . FINDINGS: A single AP view of the chest demonstrates the lungs to be symmetrically aerated without evidence of mass, infiltrate or effusion. The cardiomediastinal contours are unremarkable. Osseous structures a re intact. CONCLUSION: No active disease. Minimal basilar atelectasis. Electronically signed by: Jose De Jesus Mccall MD 05/05/2018 9:18 PM EDT
[2018-05-05 21:28] LABS: AUTOMATED NEUTROPHIL # 7.5 TH/MM3 (1.8-7.7); BASOPHIL % 0.4 % (0.0-2.0); EOSINOPHIL % 0.5 % (0.0-4.0); HEMATOCRIT 31.9 % (35.0-46.0); HEMOGLOBIN 10.4 GM/DL (11.6-15.3); LYMPH % 21.2 % (9.0-44.0); LYMPHOCYTE # 2.2 TH/MM3 (1.0-4.8); MEAN CORPUSCULAR HEMOGLOBIN 19.6 PG (27.0-34.0); MEAN CORPUSCULAR HGB CONC 32.7 % (32.0-36.0); MEAN PLATELET VOLUME 8.6 FL (7.0-11.0); MONO % 6.9 % (0.0-8.0); MONOCYTE # 0.7 TH/MM3 (0-0.9); PLATELET COUNT 136 TH/MM3 (150-450); RED BLOOD COUNT 5.32 MIL/MM3 (4.00-5.30); RED CELL DISTRIBUTION WIDTH 18.8 % (11.6-17.2); WHITE BLOOD COUNT 10.6 TH/MM3 (4.0-11.0)
[2018-05-05 21:39] LABS: PROTHROMBIN TIME - PATIENT 10.2 SEC (9.8-11.6)
[2018-05-05 21:50] LABS: ALBUMIN 3.3 GM/DL (3.4-5.0); AST (GOT) 7 U/L (15-37); BICARBONATE 25.2 MEQ/L (21.0-32.0); BLOOD UREA NITROGEN 13 MG/DL (7-18); CALCIUM 9.3 MG/DL (8.5-10.1); CHLORIDE 97 MEQ/L (98-107); GLOMERULAR FILTRATION RATE 68 ML/MIN (>89); GLUCOSE,RANDOM 313 MG/DL (74-106); MAGNESIUM 1.5 MG/DL (1.5-2.5); SODIUM (NA) 134 MEQ/L (136-145)
[2018-05-05 21:52] LABS: LACTIC ACID SEPSIS PROTOCOL 2.5 mmol/L (0.4-2.0)
[2018-05-05 21:56] LABS: ALKALINE PHOSPHATASE 91 U/L (45-117); ALT (GPT) 16 U/L (10-53); TOTAL BILIRUBIN ADULT 0.6 MG/DL (0.2-1.0); TROPONIN I LESS THAN 0.02 NG/ML (0.02-0.05)
--- NOTE | 2018-05-05 23:22 | RADRPT ---
EXAM DATE: 05/05/2018 11:13 PM EDT AGE/SEX: 62 years / Female INDICATIONS: Swelling left side of neck past 3 days. CLINICAL DATA: This is the patient's initial encounter. Patient reports that signs and symptoms have been present for 3 days and indicates a pain score of 5/10. MEDICAL/SURGICAL HISTORY: Hypertension. Diabetes mellitus type II. Hysterectomy. Tubal ligation. RADIATION DOSE: 16.32 CTDI (mGy) COMPARISON: No prior exams available for comparison. TECHNIQUE: Helical acquisition was performed using a multirow detector CT scanner during the adminis tration of 75 ml Omnipaque 350 (iohexol) nonionic water-soluble contrast as a single exam dose. Usi ng automated exposure control and adjustment of the mA and/or kV according to patient size, radiation dose was kept as low as reasonably achievable to obtain optimal diagnostic quality images. FINDINGS: Nasopharynx: The nasopharyngeal airway has a normal configuration. No mucosal thickening or mass is seen. Oropharynx: The intrinsic muscles of the tongue are symmetric. The tonsillar pillars are intact. T he prevertebral soft tissues are not thickened. Larynx: The supraglottic, glottic, and infraglottic structures are intact. Parapharyngeal: The parapharyngeal space is intact. Salivary Glands: The parotid and submandibular glands are intact. Lymph Nodes: Numerous lymph nodes scattered diffusely bilaterally measuring less than 1 cm in short a xis dimension. No enlarged or necrotic-appearing nodes. Thyroid: Homogeneous enhancement without evidence of nodule. Bones: Multilevel degenerative findings of the cervical spine. - CONCLUSION: No acute findings identified. Electronically signed by: Leeroy Prakash MD 05/05/2018 11:20 PM EDT
--- NOTE | 2018-05-05 23:43 | HHI.HP ---
[facility] Primary Care Physician Unknown Admission Diagnosis SIRS Diagnoses: (1) SIRS (systemic inflammatory response syndrome) Diagnosis: Principal (2) Weakness Diagnosis: Principal (3) COPD (chronic obstructive pulmonary disease) Diagnosis: Principal (4) DM (diabetes mellitus) Diagnosis: Principal Travel History International Travel<30 Days: No Contact w/Intl Traveler <30 Da: No Traveled to Known Affected Are: No History of Present Illness This is a 62-year-old female with a PMH of HTN, Hyperlipidemia, COPD, DM, Peripheral Neuropathy, Thalassemia and Sleep Apnea who presented to the ER with complaints of headache, weakness and pain on the left side of her neck starting earlier today. Reports associated dizziness, but no fever, chills, nausea, vomiting or diarrhea. States she ambulates w/ a cane normally however today w/ increased difficulty ambulating due to dizziness. On arrival, BP 135/63, HR 111 , O2 sat 98% on RA, Temp 100.6. CBC essentially at baseline. Chemistry unremarkable except for GFR 68. BS 313. Lactic Acid 2.5. Troponin negative. INR 1.0. CXR with no acute findings. CT Neck negative. S/p Blood Cultures, Vanc/Zosyn in ER. Review of Systems Except as stated in HPI: all other systems reviewed are Neg ROS: 14 point review of systems otherwise negative. Past Family Social History Past Medical History PMH: HTN, Hyperlipidemia, COPD, DM, Peripheral Neuropathy, Thalassemia and Sleep Apnea Past Surgical History PAST SURGICAL HISTORY: Hysterectomy Allergies: Coded Allergies: codeine (Unverified Allergy, Intermediate, Rash, 05/05/18) Family History PAST FAMILY HISTORY: Reviewed. No h/o DM or CAD Social History PAST SOCIAL HISTORY: Occasional alcohol. Negative for tobacco or drugs. Physical Exam Vital Signs Vital Signs Date Time Temp Pulse Resp B/P (MAP) Pulse Ox O2 Delivery O2 Flow Rate FiO2 05/05/18 20:58 12 100 Room Air 05/05/18 20:46 112 12 138/80 (99) 98 Room Air 05/05/18 20:44 112 12 98 Room Air 05/05/18 20:24 100.6 111 18 135/63 (87 98 Physical Exam PE: GENERAL: Pleasant middle-aged black female in no acute distress, however appears weak/tired, speaking softly. HEENT: PERRLA, EOMI. No scleral icterus or conjunctival pallor. No lid lag or facial droop. Mild left neck swelling in comparison to right, +tenderness to palpation, no obvious lymphadenopathy. CARDIOVASCULAR: Regular rate and rhythm. No obvious murmurs to auscultation. No chest tenderness to palpation. RESPIRATORY: No obvious rhonchi or wheezing. Clear to auscultation. Breath sounds equal bilaterally. GASTROINTESTINAL: Abdomen soft, non-tender, nondistended. BS normal. MUSCULOSKELETAL: Extremities without clubbing, cyanosis, or edema. No obvious deformities. NEUROLOGICAL: Awake, alert and oriented x4. LUE 3/5, RUE 5/5, difficult to assess strength lower extremities due to c/o back pain. Moving both upper and lower extremities spontaneously. Laboratory Laboratory Tests Test 05/05/18 21:10 05/05/18 21:15 05/05/18 23:22 White Blood Count 10.6 Red Blood Count 5.32 Hemoglobin 10.4 Hematocrit 31.9 Mean Corpuscular Volume 60.0 Mean Corpuscular Hemoglobin 19.6 Mean Corpuscular Hemoglobin Concent 32.7 Red Cell Distribution Width 18.8 Platelet Count 136 Mean Platelet Volume 8.6 Neutrophils (%) (Auto) 71.0 Lymphocytes (%) (Auto) 21.2 Monocytes (%) (Auto) 6.9 Eosinophils (%) (Auto) 0.5 Basophils (%) (Auto) 0.4 Neutrophils # (Auto) 7.5 Lymphocytes # (Auto) 2.2 Monocytes # (Auto) 0.7 Eosinophils # (Auto) 0.0 Basophils # (Auto) 0.0 CBC Comment DIFF FINAL Differential Comment Prothrombin Time 10.2 Prothromb Time International Ratio 1.0 Activated Partial Thromboplast Time 25.3 Blood Urea Nitrogen 13 Creatinine 1.00 Random Glucose 313 Total Protein 8.0 Albumin 3.3 Calcium Level 9.3 Magnesium Level 1.5 Alkaline Phosphatase 91 Aspartate Amino Transf (AST/SGOT) 7 Alanine Aminotransferase (ALT/SGPT) 16 Total Bilirubin 0.6 Sodium Level 134 Potassium Level 4.0 Chloride Level 97 Carbon Dioxide Level 25.2 Anion Gap 12 Estimat Glomerular Filtration Rate 68 Total Creatine Kinase 31 Troponin I LESS THAN 0.02 Lipase 70 Lactic Acid Level 2.5 Date/Time Source Procedure Growth Status 05/05/18 21:15 Blood Peripheral Aerobic Blood Culture Pending Received 05/05/18 21:15 Blood Peripheral Anaerobic Blood Culture Pending Received 05/05/18 21:15 Throat Group A Streptococcus Screen Pending Received Result Diagram: 05/05/18210905/05/182109 Caprini VTE Risk Assessment Caprini VTE Risk Assessment: No/Low Risk (score <= 1) Caprini Risk Assessment Model Point Value = 1 Point Value = 2 Point Value = 3 Point Value = 5 Age 41-60 Minor surgery BMI > 25 kg/m2 Swollen legs Varicose veins or History of unexplained or recurrent spontaneous Oral contraceptives or hormone replacement Sepsis (< 1 month) Serious lung disease, including pneumonia (< 1 month) Abnormal pulmonary function Acute myocardial infarction Congestive heart failure (< 1 month) History of inflammatory bowel disease Medical patient at bed rest Age 61-74 Arthroscopic surgery Major open surgery (> 45 min) Laparoscopic surgery (> 45 min) Malignancy Confined to bed (> 72 hours) Immobilizing plaster cast Central venous access Age >= 75 History of VTE Family history of VTE Factor V Leiden Prothrombin [id number] Lupus anticoagulant Anticardiolipin antibodies Elevated serum homocysteine Heparin-induced thrombocytopenia Other congenital or acquired thrombophilia Stroke (< 1 month) Elective arthroplasty Hip, pelvis, or leg fracture Acute spinal cord injury (< 1 month) Prophylaxis Regimen Total Risk Factor Score Risk Level Prophylaxis Regimen 0-1 Low Early ambulation 2 Moderate Order ONE of the following: *Sequential Compression Device (SCD) *Heparin 5000 units SQ BID 3-4 Higher Order ONE of the following medications: *Heparin 5000 units SQ TID *Enoxaparin/Lovenox 40 mg SQ daily (WT < 150 kg, CrCl > 30 mL/min) *Enoxaparin/Lovenox 30 mg SQ daily (WT < 150 kg, CrCl > 10-29 mL/min) *Enoxaparin/Lovenox 30 mg SQ BID (WT < 150 kg, CrCl > 30 mL/min) AND/OR *Sequential Compression Device (SCD) 5 or more Highest Order ONE of the following medications: *Heparin 5000 units SQ TID (Preferred with Epidurals) *Enoxaparin/Lovenox 40 mg SQ daily (WT < 150 kg, CrCl > 30 mL/min) *Enoxaparin/Lovenox 30 mg SQ daily (WT < 150 kg, CrCl > 10-29 mL/min) *Enoxaparin/Lovenox 30 mg SQ BID (WT < 150 kg, CrCl > 30 mL/min) AND *Sequential Compression Device (SCD) Assessment and Plan Problem List: (1) SIRS (systemic inflammatory response syndrome) ICD Code: R65.10 - Systemic inflammatory response syndrome (SIRS) of non- infectious origin without acute organ dysfunction Status: Acute (2) Weakness ICD Code: R53.1 - Weakness (3) COPD (chronic obstructive pulmonary disease) ICD Code: J44.9 - Chronic obstructive pulmonary disease, unspecified (4) DM (diabetes mellitus) ICD Code: E11.9 - Type 2 diabetes mellitus without complications Assessment and Plan A/P: 1. SIRS: Temp 000.6, HR 111, Source-unclear. Reports generalized weakness/ fatigue. Check U/a to eval for underlying UTI. CXR w/ no acute findings, images reviewed by me. S/p Blood Cultures, Vanc/Zosyn, will follow up cultures , continue IV Abx, IVF for hydration, repeat Lactic Acid. 2. Weakness: reports generalized weakness, possibly secondary to above, however on exam pt w/ LUE weakness, strength 3/5, states new finding. Will check CT Head to eval for possible CVA, Consult Neurology as needed for further recommendations, PT for eval/tx. 3. COPD: Chronic Respiratory Failure. Resume home medications, monitor O2 4. DM: Sliding scale w/ Accu-cheks, resume home Insulin. 5. DVT Prophylaxis: SCD/Teds 6. Social work for d/c planning as needed. 7. Case discussed w/ ER physician at length, labs/records/imaging reviewed by me. Physician Certification 2 Midnight Certification Type: Admission for Inpatient Services Order for Inpatient Services The services are ordered in accordance with Medicare regulations or non- Medicare payer requirements, as applicable. In the case of services not specified as inpatient-only, they are appropriately provided as inpatient services in accordance with the 2-midnight benchmark. Estimated LOS (days): 2 days is the estimated time the patient will need to remain in the hospital, assuming treatment plan goals are met and no additional complications. Post-Hospital Plan: Not yet determined Nga Alonso MD May 05, 2018 23:43
[2018-05-05] MEDS ORDERED: ACETAMINOPHEN 325 MG TAB PO PRN (23:45)
[2018-05-05] MEDS ORDERED: BISACODYL 10 MG SUPP RECTAL PRN (23:45)
[2018-05-05] MEDS ORDERED: GLUCAGON 1 MG/ML VIAL OTHER PRN (23:45)
[2018-05-05] MEDS ORDERED: MAGNESIUM HYDROXIDE SUSP 30 ML CUP PO PRN (23:45)
[2018-05-05] MEDS ORDERED: DEXTROSE 50% IN WATER 50 ML VIAL(D50) IV PUSH PRN (23:45)
[2018-05-05] MEDS ORDERED: SODIUM CHLORIDE 0.9% FLUSH 10 ML FLUSH IV FLUSH PRN (23:45)
[2018-05-05] MEDS ORDERED: METOCLOPRAMIDE HCL 10 MG/2 ML VIAL IV PUSH PRN (23:45)
[2018-05-05] MEDS ORDERED: SENNOSIDES 8.6 MG TAB PO PRN (23:45)
[2018-05-05] MEDS ORDERED: LACTULOSE SYRUP 20 GM/30 ML CUP PO PRN (23:45)
[2018-05-06] VITALS (12 sets, daily range): BP systolic 124–174; BP diastolic 69–81; PULSE 90–104; RESP 16–18; TEMP 97.9–98.7; O2SAT 96–99
[2018-05-06] MEDS: SODIUM CHLOR 0.9% 1000 ML INJ 1,000 ML IV SCH ×2 (00:06→10:03)
--- NOTE | 2018-05-06 00:44 | RADRPT ---
EXAM DATE: 05/06/2018 12:21 AM EDT AGE/SEX: 62 years / Female INDICATIONS: Headache. CLINICAL DATA: This is the patient's initial encounter. Patient reports that signs and symptoms have been present for 1 day and indicates a pain score of 6/10. MEDICAL/SURGICAL HISTORY: Hypertension. Cardiovascular disease. Diabetes. Hysterectomy. RADIATION DOSE: 56.35 CTDI (mGy) COMPARISON: [facility] [place], CT BRAIN W/O CONTRAST, 11/11/2015. . TECHNIQUE: CT of the head without contrast. Using automated exposure control and adjustment of the mA and/or kV according to patient size, radiation dose was kept as low as reasonably achievable to ob tain optimal diagnostic quality images. FINDINGS: Cerebrum: The ventricles are normal for age. No evidence of midline shift, mass lesion, hemorrhage or acute infarction. No extraaxial fluid collections are seen. Posterior Fossa: The cerebellum and brainstem are intact. The 4th ventricle is midline. The cerebe llopontine angle is unremarkable. Extracranial: Mild right-sided ethmoid sinus partial opacification. Skull: The calvaria is intact. No evidence of skull fracture. CONCLUSION: 1. No acute intracranial findings. 2. Mild right-sided ethmoid sinus disease. Electronically signed by: Leeroy Prakash MD 05/06/2018 12:43 AM EDT
[2018-05-06] MEDS: MORPHINE SULFATE 4 MG/ML INJ IV PUSH PRN ×2 (02:35→10:21)
[2018-05-06] MEDS: INSULIN ASPART SUPPLEMENTAL SCALE SQ SCH ×4 (06:49→20:58)
[2018-05-06 07:36] LABS: AUTOMATED NEUTROPHIL # 4.6 TH/MM3 (1.8-7.7); BASOPHIL % 0.6 % (0.0-2.0); EOSINOPHIL % 0.5 % (0.0-4.0); HEMATOCRIT 27.2 % (35.0-46.0); HEMOGLOBIN 8.6 GM/DL (11.6-15.3); LYMPH % 32.8 % (9.0-44.0); LYMPHOCYTE # 2.6 TH/MM3 (1.0-4.8); MEAN CELL VOLUME 60.6 FL (80.0-100.0); MEAN CORPUSCULAR HEMOGLOBIN 19.1 PG (27.0-34.0); MEAN CORPUSCULAR HGB CONC 31.4 % (32.0-36.0); MEAN PLATELET VOLUME 8.6 FL (7.0-11.0); MONO % 8.1 % (0.0-8.0); MONOCYTE # 0.6 TH/MM3 (0-0.9); PLATELET COUNT 128 TH/MM3 (150-450); RED CELL DISTRIBUTION WIDTH 18.7 % (11.6-17.2)
[2018-05-06 08:14] LABS: ALBUMIN 2.8 GM/DL (3.4-5.0); ALT (GPT) 15 U/L (10-53); AST (GOT) 10 U/L (15-37); BICARBONATE 23.3 MEQ/L (21.0-32.0); BLOOD UREA NITROGEN 11 MG/DL (7-18); CALCIUM 8.2 MG/DL (8.5-10.1); CHLORIDE 105 MEQ/L (98-107); CREATININE 0.72 MG/DL (0.50-1.00); GLOMERULAR FILTRATION RATE 99 ML/MIN (>89); GLUCOSE,RANDOM 278 MG/DL (74-106); SODIUM (NA) 139 MEQ/L (136-145)
[2018-05-06 08:17] LABS: ALKALINE PHOSPHATASE 75 U/L (45-117); TOTAL BILIRUBIN ADULT 0.5 MG/DL (0.2-1.0); TOTAL PROTEIN 6.7 GM/DL (6.4-8.2)
[2018-05-06] MEDS: SODIUM CHLORIDE 0.9% FLUSH 10 ML FLUSH IV FLUSH SCH ×2 (09:00→20:59)
[2018-05-06] MEDS: FLUTICASONE PROPIONATE 50 MCG/ACT 16 GM NASAL SPRAY EACH NARE SCH (10:03)
[2018-05-06] MEDS: BUDESONIDE-FORMOTEROL 160/4.5 MCG INHALER INH SCH ×2 (10:04→20:59)
[2018-05-06] MEDS: DOCUSATE SODIUM 50 MG/SENNA 8.6 MG TAB PO SCH ×2 (10:05→20:59)
[2018-05-06] MEDS: PANTOPRAZOLE SOD 40 MG DELAYED RELEASE TAB PO SCH ×2 (10:05→20:59)
[2018-05-06] MEDS: INSULIN DETEMIR 100 UNITS/ML VIAL SQ SCH ×2 (11:16→20:58)
[2018-05-06 11:26] LABS: BILIRUBIN, URINE NEG (NEG); BLOOD, URINE NEG (NEG); GLUCOSE,URINE 1000 mg/dL (NEG); KETONE, URINE NEG (NEG); MUCUS URINE FEW /lpf (OCC); NITRITE,URINE NEG (NEG); PH, URINE 6.5 (5.0-8.5); SQUAMOUS EPITHELIAL CELL URINE <1 /hpf (0-5); URINE COLOR LIGHT-YELLOW (YELLW/STRAW); URINE LEUKOCYTE ESTERASE NEG (NEG)
[2018-05-06] MEDS ORDERED: AMLO5TAB2 PO (12:30)
[2018-05-06] MEDS ORDERED: TOVI8TAB PO (12:34)
[2018-05-06] MEDS ORDERED: HYDR-3133 PO (12:34)
--- NOTE | 2018-05-06 13:20 | MB ---
cc: Arabella Maxwell MD DATE: 05/06/2018 REASON FOR CONSULTATION: Left upper extremity weakness. HISTORY OF PRESENT ILLNESS: This is a 61-year-old woman with a history of hypertension, hyperlipidemia, COPD, diabetes, neuropathy, thalassemia and sleep apnea who comes in because of what she tells me she has had weakness on the left side. Her arm hurts at the shoulder and neck also. Started a couple days prior, but became worse yesterday, so she came in for assessment. She still complains of pain in her shoulder. PAST MEDICAL HISTORY: As stated. SURGICAL HISTORY: Hysterectomy. ALLERGIES: CODEINE. FAMILY HISTORY: Noncontributory. SOCIAL HISTORY: Occasional alcohol. No tobacco. No drug history. PHYSICAL EXAMINATION: VITAL SIGNS: Temperature is 97.9, pulse 100, respiratory rate 18, blood pressure 173/77. NECK: Supple. No appreciable bruits. HEART: Regular. NEUROLOGIC: She is awake and alert. She is oriented and fluent. Pupils reactive. Visual miller full. Face symmetrical. Tongue midline. Motor ann, she can lift her arm up, but she grimaces to pain and I tried to assist her. There is pain in the shoulder region. Her housekeeping lead is a little weaker than the right. Sensory is normal. I cannot do formal strength testing because of the pain. There is no leg lag. DTRs are trace. Toes are downgoing bilaterally. Normal cerebellar on the right, limited on the left due to the pain in her left arm. Gait cannot be assessed. Sensory ann, she feels the same light touch upper and lower extremities. LABORATORY DATA: Reviewed. Her hemoglobin is 8.6, platelets 128,000. Coag panel is normal. Chemistries: Glucose is 278, calcium 8.2. Urinalysis 1000 glucose. Microbiology is pending, but no growth in her culture in [address] brain, nothing acute. Some mild right-sided ethmoid sinus disease noted. She did have a neck CT looking at the report, it states nothing acute, but looking at the full body, the report states this was done for soft tissues not for bone and they did not see anything of concern. IMPRESSION: Left-sided weakness. I am concerned there may be cervicogenic versus her shoulder. I am going to go ahead and get an MRI of the C-spine and of the brain. I doubt this is a stroke, but in any case, if the C-spine and brain are unremarkable, I would go ahead then at that point and take a look at her shoulder. Start her at least preventatively on a baby aspirin. She is on antibiotics. I am not sure why, but will defer to the primary care team and depending on what the images show, further recommendations will be made accordingly. MD MELINDA Franklin/ZENA , 01:05 PM , 01:19 PM
--- NOTE | 2018-05-06 14:02 | RADRPT ---
EXAM DATE: 05/06/2018 1:59 PM EDT AGE/SEX: 62 years / Female INDICATIONS: CVA. Left sided paralysis. CLINICAL DATA: This is the patient's initial encounter. Patient reports that signs and symptoms have been present for 3 days and indicates a pain score of 4/10. MEDICAL/SURGICAL HISTORY: Hypertension. Tubal ligation. Hysterectomy. COMPARISON: No prior exams available for comparison. TECHNIQUE: Multiplanar, multisequence examination of the brain was performed without contrast. FINDINGS: Ventricular size is appropriate. Negative for parenchymal hemorrhage, acute infarction or mass lesion . I do not see any significant restricted diffusion to account for the patient's left-sided paralysis . Posterior fossa is unremarkable Midline structures are intact Posterior fossa appears normal Orbits and perineal sinuses are unremarkable. CONCLUSION: 1. Negative MRI of the brain for an acute process. 2. I do not see an etiology for the patient's acute left-sided paralysis. Electronically signed by: Sunday Mchugh MD 05/06/2018 2:01 PM EDT
--- NOTE | 2018-05-06 14:59 | EKG ---
Date Performed: 05/05/2018 Time Performed: 19:54:18 PTAGE: 62 years EKG: SINUS TACHYCARDIA POSSIBLE LEFT ATRIAL ENLARGEMENT NONSPECIFIC T-WAVE ABNORMALITY ABNORMAL RHYTHM ECG Since the PREVIOUS TRACING , no significant change noted PREVIOUS TRACIN03/01/2017 15.20 DOCTOR: Julian Florence Interpretating Date/Time 05/06/2018 14:54:37
--- NOTE | 2018-05-06 15:30 | RADRPT ---
EXAM DATE: 05/06/2018 2:20 PM EDT AGE/SEX: 62 years / Female INDICATIONS: Radiculopathy. Left sided weakness. CLINICAL DATA: This is the patient's initial encounter. Patient reports that signs and symptoms have been present for 3 days and indicates a pain score of 5/10. MEDICAL/SURGICAL HISTORY: Hypertension. Tubal ligation. Hysterectomy. COMPARISON: No prior exams available for comparison. TECHNIQUE: Multiplanar, multisequence MRI examination of the cervical spine was performed without co ntrast. FINDINGS: Vertebrae: Bony fusion of the C4 and C5 vertebral bodies observed. Normal vertebral body height. Ho mogeneous marrow signal. Alignment: Loss of the natural lordosis.. Cord: Normal configuration and signal. Post Fossa: The cerebellar tonsils are normal in position. C2-C3: There is disc desiccation without significant height loss. A minimal broad-based bulge. Centr al canal, lateral recesses, and neural foramen are patent. C3-C4: Disc desiccation and disc space narrowing with a broad-based disc bulge that flattens the melinda tral portion of the cord. Anterior to posterior dimension of the central canal in the midline is 7 mm . Bony uncovertebral hypertrophy bilaterally without significant neural foraminal narrowing.. C4-C5: Fusion at this level. Central canal and neural foramen are patent. C5-C6: Disc space narrowing and disc desiccation with a mild broad-based bulge. No abutment of the c ord or central canal stenosis. Neural foramen are patent bilaterally. C6-C7: Disc desiccation without significant narrowing. A minimal broad-based bulge. No central canal stenosis or abutment of the cord. Neural foramen are patent bilaterally. C7-T1: No epidural impressions seen. CONCLUSION: 1. Bony fusion of C4 and C5. 2. Degenerative disc disease most pronounced at C3-C4 with flattening of the cord but no signal alves ge in the cord to suggest edema or myelomalacia. Central canal patent throughout the remaining cervic al areas. Electronically signed by: Pastor Wallace MD 05/06/2018 3:28 PM EDT
[2018-05-06] MEDS ORDERED: amLODIPine BESYLATE 5 MG TAB PO ONE (17:00)
--- NOTE | 2018-05-06 17:20 | HHI.PR ---
Subjective Remarks Patient says that headaches continue. Denies any chest pain shortness of breath. She reports continued extreme pain in left shoulder, extreme tenderness to palpation. Cannot lift left arm up due to pain in shoulder. Objective Vital Signs Date Time Temp Pulse Resp B/P (MAP) Pulse Ox O2 Delivery O2 Flow Rate FiO2 05/06/18 15:56 98.0 100 16 174/81 (112) 96 05/06/18 13:06 100 05/06/18 12:09 97.9 100 18 172/77 (108) 97 05/06/18 08:16 98 05/06/18 08:00 98.4 97 18 166/74 (104) 99 05/06/18 04:44 96 05/06/18 04:09 98.2 95 17 124/74 (91) 97 05/06/18 02:42 22 05/06/18 02:13 104 05/06/18 00:58 05/06/18 00:57 98.7 104 18 144/69 (94) 96 05/06/18 00:06 20 05/05/18 20:58 12 100 Room Air 05/05/18 20:46 112 12 138/80 (99) 98 Room Air 05/05/18 20:44 112 12 98 Room Air 05/05/18 20:24 100.6 111 18 135/63 (87) 98 I/O 05/05/18 05/05/18 05/05/18 05/06/18 05/06/18 05/06/18 07:00 15:00 23:00 07:00 15:00 23:00 Intake Total 3564.5 ml Balance 3564.5 ml Intake IV Total 3564.5 ml # Voids 2 Result Diagram: 05/06/1820 05/06/18619 Objective Remarks GENERAL: Patient sitting up in bed. Appears uncomfortable. SKIN: Warm and dry. HEAD: Normocephalic. EYES: No scleral icterus. No injection or drainage. NECK: Supple, trachea midline. No JVD. CARDIOVASCULAR: Regular rate and rhythm without murmurs, gallops, or rubs. RESPIRATORY: Breath sounds equal bilaterally. No accessory muscle use. GASTROINTESTINAL: Abdomen soft, non-tender, nondistended. MUSCULOSKELETAL: She does have trace edema in the left upper extremity. She is unable to lift left arm limited due to pain. Left shoulder unable to be palpated secondary to pain. No broken skin. BACK: Nontender without obvious deformity. No CVA tenderness. A/P Assessment and Plan //SIRS: Temp 100.6, HR 111, Source-unclear. Reports generalized weakness/ fatigue. Check U/a to eval for underlying UTI. CXR w/ no acute findings, images reviewed by me. S/p Blood Cultures, Vanc/Zosyn, will follow up cultures, continue IV Abx, IVF for hydration, repeat Lactic Acid. = Repeat lactate within normal limits. = //Weakness, possible stroke : reports generalized weakness, possibly secondary to above, however on exam pt w/ LUE weakness, strength 3/5, states new finding. Will check CT Head to eval for possible CVA, Consult Neurology as needed for further recommendations, PT for eval/tx. = Neuro consulted, MRI with no acute findings. = Neuro continuing to follow. Appreciate assistance. //Hypertension With blood pressures in the systolics 170s. //COPD: Chronic Respiratory Failure. Resume home medications, monitor O2 //DM: Sliding scale w/ Accu-cheks, resume home Insulin. = Blood sugars acceptable improving. Continue diabetic diet and insulin sliding scale. //DVT Prophylaxis: SCD/Teds Discharge Planning Pending improvement in pain, blood pressure, headache. Luke Nixon MD May 06, 2018 17:20
[2018-05-06] MEDS: GABAPENTIN 300 MG CAP PO SCH (17:22)
[2018-05-06] MEDS ORDERED: ENALAPRILAT 1.25 MG/ML VIAL IV PUSH PRN (17:30)
--- NOTE | 2018-05-06 17:48 | RADRPT ---
EXAM DATE: 05/06/2018 5:45 PM EDT AGE/SEX: 62 years / Female INDICATIONS: Left shoulder pain with no known injury. CLINICAL DATA: This is the patient's initial encounter. Patient reports that signs and symptoms have been present for 3 days and indicates a pain score of 7/10. MEDICAL/SURGICAL HISTORY: None. None. COMPARISON: No prior exams available for comparison. FINDINGS: Bony structures are intact and in normal alignment. Joints are intact without dislocation or signifi cant arthropathy. Osseous density is normal. Mild AC degenerative changes. Soft tissues are unremar kable. Minimal degenerative labral calcifications are noted. No radiopaque foreign bodies seen. CONCLUSION: Mild degenerative changes otherwise negative. Electronically signed by: Sunday Mchugh MD 05/06/2018 5:46 PM EDT
[2018-05-06] MEDS: MONTELUKAST SODIUM 10 MG TAB PO SCH (20:59)
--- NOTE | 2018-05-06 21:59 | RADRPT ---
EXAM DATE: 05/06/2018 9:54 PM EDT AGE/SEX: 62 years / Female INDICATIONS: Left arm pain. CLINICAL DATA: This is the patient's initial encounter. Patient reports that signs and symptoms have been present for 4 - 6 days and indicates a pain score of 7/10. MEDICAL/SURGICAL HISTORY: Hypercholesterolemia. Hypertension. Anemia. Neuropathy. Vertigo. S yncope. Angina. Fibromyalgia. Diabetes. Blood transfusions. Tubal ligation. Hysterectomy. Spine s urgery. COMPARISON: No prior exams available for comparison. FINDINGS: There is spontaneous flow documented in the brachial, basilic, cephalic, axillary, and subclavian vei ns. The vessels are compressible and augmentation response is documented. No filling defects are se en. The flow is phasic with respiration. Direction of flow in the jugular vein is caudal. CONCLUSION: 1. The study is negative for upper extremity deep venous thrombosis. Electronically signed by: Ana Isaacs MD 05/06/2018 9:57 PM EDT
[2018-05-07] VITALS (8 sets, daily range): BP systolic 124–169; BP diastolic 63–79; PULSE 92–105; RESP 15–24; TEMP 98.1–98.7; O2SAT 95–100
[2018-05-07] MEDS: MORPHINE SULFATE 4 MG/ML INJ IV PUSH PRN ×3 (03:56→12:55)
[2018-05-07 07:52] LABS: AUTOMATED NEUTROPHIL # 2.8 TH/MM3 (1.8-7.7); BASOPHIL % 0.4 % (0.0-2.0); EOSINOPHIL # 0.2 TH/MM3 (0-0.4); EOSINOPHIL % 2.7 % (0.0-4.0); HEMATOCRIT 28.3 % (35.0-46.0); HEMOGLOBIN 9.1 GM/DL (11.6-15.3); LYMPH % 41.8 % (9.0-44.0); LYMPHOCYTE # 2.4 TH/MM3 (1.0-4.8); MEAN CORPUSCULAR HEMOGLOBIN 19.2 PG (27.0-34.0); MEAN PLATELET VOLUME 9.1 FL (7.0-11.0); MONO % 7.1 % (0.0-8.0); MONOCYTE # 0.4 TH/MM3 (0-0.9); PLATELET COUNT 134 TH/MM3 (150-450); RED BLOOD COUNT 4.72 MIL/MM3 (4.00-5.30); RED CELL DISTRIBUTION WIDTH 18.5 % (11.6-17.2); WHITE BLOOD COUNT 5.8 TH/MM3 (4.0-11.0)
[2018-05-07 07:56] LABS: BICARBONATE 25.2 MEQ/L (21.0-32.0); CALCIUM 8.7 MG/DL (8.5-10.1); CREATININE 0.67 MG/DL (0.50-1.00); MAGNESIUM 1.7 MG/DL (1.5-2.5); PHOSPHORUS 2.5 MG/DL (2.5-4.9)
[2018-05-07] MEDS: FLUTICASONE PROPIONATE 50 MCG/ACT 16 GM NASAL SPRAY EACH NARE SCH (08:18)
[2018-05-07] MEDS: BUDESONIDE-FORMOTEROL 160/4.5 MCG INHALER INH SCH ×2 (08:19→20:37)
[2018-05-07] MEDS: amLODIPine BESYLATE 5 MG TAB PO SCH (08:20)
[2018-05-07] MEDS: GABAPENTIN 300 MG CAP PO SCH ×3 (08:20→16:49)
[2018-05-07] MEDS: SODIUM CHLORIDE 0.9% FLUSH 10 ML FLUSH IV FLUSH SCH ×2 (08:20→20:45)
[2018-05-07] MEDS: PANTOPRAZOLE SOD 40 MG DELAYED RELEASE TAB PO SCH ×2 (08:21→20:36)
[2018-05-07] MEDS: DOCUSATE SODIUM 50 MG/SENNA 8.6 MG TAB PO SCH ×2 (08:21→20:37)
[2018-05-07] MEDS: INSULIN DETEMIR 100 UNITS/ML VIAL SQ SCH ×2 (08:36→22:36)
[2018-05-07] MEDS: INSULIN ASPART SUPPLEMENTAL SCALE SQ SCH ×4 (08:36→22:36)
--- NOTE | 2018-05-07 11:49 | HHI.PR ---
Subjective Remarks Follow-up for left neck/shoulder pain with left upper extremity weakness. Patient reports continued intractable 9/10 left shoulder pain with associated weakness of the left arm. She states she is unable to lift her left arm due to the pain. Denies any numbness of the left arm. She states her pain is worse throughout the entire upper left shoulder, with radiation into the left cervical paraspinous muscles and down into the upper arm. She states her left knee also feels weak when she tries to ambulate. She otherwise denies any headache, lightheadedness, dizziness, visual changes, chest pain, palpitations, shortness of breath. Objective Vitals Vital Signs Date Time Temp Pulse Resp B/P (MAP) Pulse Ox O2 Delivery O2 Flow Rate FiO2 05/07/18 11:32 98.4 100 20 168/76 (106) 98 05/07/18 07:37 98.4 101 24 139/63 (88) 95 05/07/18 07:35 92 05/07/18 03:53 98.1 99 18 158/75 (102) 100 05/07/18 00:27 98.2 95 15 124/63 (83) 98 05/06/18 23:53 90 05/06/18 19:47 98.5 99 16 146/70 (95) 98 05/06/18 16:32 100 05/06/18 15:56 98.0 100 16 174/81 (112) 96 05/06/18 13:06 100 05/06/18 12:09 97.9 100 18 172/77 (108) 97 I/O 05/06/18 05/06/18 05/06/18 05/07/18 05/07/18 05/07/18 07:00 15:00 23:00 07:00 15:00 23:00 Intake Total 3564.5 ml 500 ml Balance 3564.5 ml 500 ml Intake IV Total 3564.5 ml 500 ml # Voids 2 Result Diagram: 05/07/18 0642 05/07/18 0642 Imaging Last Impressions Head CT 05/06/18 0001 Signed Impressions: CONCLUSION: 1. No acute intracranial findings. 2. Mild right-sided ethmoid sinus disease. Upper Extremity Ultrasound 05/06/18 0000 Signed Impressions: CONCLUSION: 1. The study is negative for upper extremity deep venous thrombosis. Shoulder X-Ray 05/06/18 Signed Impressions: CONCLUSION: Mild degenerative changes otherwise negative. Cervical Spine MRI 05/06/18 Signed Impressions: CONCLUSION: 1. Bony fusion of C4 and C5. 2. Degenerative disc disease most pronounced at C3-C4 with flattening of the c ord but no signal change in the cord to suggest edema or myelomalacia. Central canal patent throughout the remaining cervical areas. Brain MRI 05/06/18 Signed Impressions: CONCLUSION: 1. Negative MRI of the brain for an acute process. 2. I do not see an etiology for the patient's acute left-sided paralysis. Chest X-Ray 05/05/182054 Signed Impressions: CONCLUSION: No active disease. Minimal basilar atelectasis. Neck CT 05/05/18 Signed Impressions: CONCLUSION: No acute findings identified. Objective Remarks GENERAL: Well-nourished, well-developed female patient in [facility]. SKIN: Warm and dry. No rash. HEENT: Normocephalic. Atraumatic. Pupils equal and round. Mucous membranes pink and moist. NECK: Supple. Trachea midline. CARDIOVASCULAR: Regular rate and rhythm. No murmur appreciated. RESPIRATORY: No accessory muscle use. Clear to auscultation. Breath sounds equal bilaterally. GASTROINTESTINAL: Abdomen soft, non-tender, nondistended. Normoactive bowel sounds x4. MUSCULOSKELETAL: No obvious deformities. Extremities without clubbing, cyanosis , or edema. Significant left upper/anterior shoulder tenderness to palpation, worse throughout the upper trapezius muscle, with associated tightness consistent with spasm. Cervical spine nontender to palpation. Limited left shoulder range of motion secondary to pain. NEUROLOGICAL: Awake and alert. No obvious cranial nerve deficits. 4/5 warper tender strength of the left hand compared to 5/5 on the right; however 3/5 strength with flexion/extension of the left elbow compared to 5/5 on the right. 5/5 strength of bilateral lower extremities. Normal speech. PSYCHIATRIC: Appropriate mood and affect; insight and judgment normal. Medications and IVs Current Medications Medications (Trade) Dose Ordered Sig/Gladis Route Start Time Stop Time Status Last Admin (D50w (Vial) Inj) 50 ml UNSCH PRN IV PUSH 05/05/18 23:45 (Glucagon Inj) 1 mg UNSCH PRN OTHER 05/05/18 23:45 (NovoLOG SUPPLEMENTAL SCALE) 1 ACHS SLIDING SCALE SQ 05/06/18 08:00 05/07/18 12:54 (NS Flush) 2 ml UNSCH PRN IV FLUSH 05/05/18 23:45 (NS Flush) 2 ml BID IV FLUSH 05/06/18 09:00 05/07/18 08:20 (Reglan Inj) 5 mg Q6H PRN IV PUSH 05/05/18 23:45 (Tylenol) 650 mg Q6H PRN PO 05/05/18 23:45 (Morphine Inj) 2 mg Q3H PRN IV PUSH 05/05/18 23:45 05/07/18 12:55 (Marquita-Colace) 1 tab BID PO 05/06/18 09:00 05/07/18 08:21 (Milk Of Magnesia Liq) 30 ml Q12H PRN PO 05/05/18 23:45 (Senokot) 17.2 mg Q12H PRN PO 05/05/18 23:45 05/07/18 08:21 (Dulcolax Supp) 10 mg DAILY PRN RECTAL 05/05/18 23:45 (Lactulose Liq) 30 ml DAILY PRN PO 05/05/18 23:45 (Symbicort 160-4.5 Mcg Inh) 2 puff Q12HR INH 05/06/18 09:00 05/07/18 08:19 (Singulair) 10 mg HS PO 05/06/18 21:00 05/06/18 20:59 (Protonix) 40 mg BID PO 05/06/18 09:00 05/07/18 08:21 (Flonase Gerald Spr) 2 spray DAILY EACH NARE 05/06/18 09:00 05/07/18 08:18 (Levemir Inj) 15 units Q12HR SQ 05/06/18 10:45 05/07/18 08:36 (Norvasc) 5 mg DAILY PO 05/07/18 09:00 05/07/18 08:20 (Neurontin) 300 mg TID PO 05/06/18 18:00 05/07/18 12:53 (Vasotec Inj) 1.25 mg Q6H PRN IV PUSH 05/06/18 17:30 A/P Problem List: (1) SIRS (systemic inflammatory response syndrome) ICD Code: R65.10 - Systemic inflammatory response syndrome (SIRS) of non- infectious origin without acute organ dysfunction Status: Acute (2) Weakness ICD Code: R53.1 - Weakness (3) COPD (chronic obstructive pulmonary disease) ICD Code: J44.9 - Chronic obstructive pulmonary disease, unspecified (4) DM (diabetes mellitus) ICD Code: E11.9 - Type 2 diabetes mellitus without complications Assessment and Plan 62-year-old female with a PMH of HTN, Hyperlipidemia, COPD, DM, Peripheral Neuropathy, Thalassemia and Sleep Apnea who presented to the ER with complaints of headache, weakness and pain on the left side of her neck starting earlier today SIRS: Temp 100.6, HR 111, Source-unclear. Reports generalized weakness/ fatigue. -UA and CXR reviewed and unremarkable -Blood cultures with NGTD -Strep screen negative -Given IVF hydration -S/p IV Vanco/Zosyn, will discontinue antibiotics for now with no identifiable source of infection and resolution of SIRS Left Shoulder Pain with LUE Weakness: concern for possible stroke vs radiculopathy vs shoulder injury. On exam pt w/ LUE weakness, strength 3/5, states new finding. -Head CT, brain MRI reviewed and unremarkable for stroke -Neck CT reviewed, no acute findings -Shoulder xray reviewed, shows mild degenerative changes otherwise negative -C-spine MRI shows moderate stenosis at C3-4 without significant cord compression/edema -Consult neurology, appreciate recommendations -Consult neurosurgery, seen by Dr. Evans, no surgical intervention recommended -PT recommending [facility] -Continue gabapentin, norco prn, added flexeril 5mg po q8h and lidoderm patch -heating pad -Check left shoulder MRI as weakness seems more likely secondary to severe left shoulder pain Hypertension: uncontrolled, with blood pressures in the systolics 170s. -continue Norvasc 5mg daily -IV vasotec prn -monitor BP, adjust antihypertensives as needed COPD: Chronic Respiratory Failure. -Resume home medications, monitor O2 DM: Chronic -Continue patient's Levemir 15u sq bid -Sliding scale w/ Accu-cheks -Continue diabetic diet DVT Prophylaxis: SCD/Teds; Lovenox sq Discharge Planning Discharge pending Shoulder MRI and further clinical improvement. Talya Rosado PA-C May 07, 2018 11:49
--- NOTE | 2018-05-07 16:13 | PD.CONS ---
History of Present Illness Service Neurosurgery Consult Requested By Medicine service Reason for Consult Cervical stenosis Primary Care Physician Unknown Diagnoses: History of Present Illness 62-year-old female admitted through the emergency room on 05/05/2018 with complaint of headache, dizziness and left neck pain and weakness starting on the day of admission. The patient reported generalized weakness, but on examination was noted to have significant left upper extremity paresis. Subsequent consultation by neurology with indication of possible left shoulder or cervicogenic pain. MRI brain and cervical spine negative for significant intracranial abnormality. Cervical spine MRI was also obtained, indicating C3-4 stenosis. Review of Systems Constitutional: COMPLAINS OF: Fatigue, Dizziness, DENIES: Fever Eyes: DENIES: Blurred vision, Diplopia Ears, nose, mouth, throat: COMPLAINS OF: Vertigo, DENIES: Tinnitus, Hearing loss Cardiovascular: DENIES: Chest pain Gastrointestinal: DENIES: Abdominal pain, Vomiting Musculoskeletal: COMPLAINS OF: Joint pain, Muscle aches, Neck pain, DENIES: Back pain Hematologic/lymphatic: DENIES: Bruising Neurologic: COMPLAINS OF: Abnormal gait, Headache Psychiatric: DENIES: Confusion Past Family Social History Allergies: Coded Allergies: codeine (Unverified Allergy, Intermediate, Rash, 05/05/18) Past Medical History Diabetes Hypertension Angina Fibromyalgia Neuropathy Past Surgical History Hysterectomy Reported Medications Reported Meds & Active Scripts Active Reported Hydroxyzine HCl 25 Mg Tab 25 Mg PO DAILY PRN Toviaz ER (Fesoterodine Fumarate) 8 Mg Vikas 8 Mg PO HS Amlodipine (Amlodipine Besylate) 5 Mg Tab 5 Mg PO DAILY Zantac (Ranitidine HCl) 150 Mg Tab 150 Mg PO BID Flonase Nasal Republic (Fluticasone Nasal Republic) 50 Mcg/Act Republic 2 Republic EACH NARE DAILY Gabapentin 300 Mg Cap 300 Mg PO TID Lantus Inj (Insulin Glargine) 1,000 Unit/10 Ml Vial 30 Units SQ HS Humalog Inj (Insulin Human Lispro) 1,000 Unit/10 Ml Vial 5-9 Units SQ TIDAC SLIDING SCALE: 150-200=5 units, 201-250=7 units, 251-300=9 units Levemir Inj (Insulin Detemir) 1,000 unit/ 10 ML Vial 20 Units SQ HS Do not mix with any other Insulin. Symbicort Inh (Budesonide/Formoterol Fumarate) 160-4.5 Mcg/Act Aero 2 Puff INH Q12HR Pantoprazole (Pantoprazole Sodium) 40 Mg Tab 40 Mg PO BID Singulair (Montelukast Sodium) 10 Mg Tab 10 Mg PO HS Family History Negative for neurologic disorders Social History Previous smoker Occasional alcohol Physical Exam Vital Signs Vital Signs Date Time Temp Pulse Resp B/P (MAP) Pulse Ox O2 Delivery O2 Flow Rate FiO2 05/07/18 15:48 98.3 105 19 166/74 (104) 98 05/07/18 11:37 100 05/07/18 11:32 98.4 100 20 168/76 (106) 98 05/07/18 07:37 98.4 101 24 139/63 (88) 95 05/07/18 07:35 92 05/07/18 03:53 98.1 99 18 158/75 (102) 100 05/07/18 00:27 98.2 95 15 124/63 (83) 98 05/06/18 23:53 90 05/06/18 19:47 98.5 99 16 146/70 (95) 98 05/06/18 16:32 100 05/06/18 15:56 98.0 100 16 174/81 (112) 96 Physical Exam GENERAL: This is a well-nourished, well-developed patient, in no apparent distress. SKIN: No rashes, ecchymoses or lesions. Cool and dry. HEAD: Atraumatic. Normocephalic. No temporal or scalp tenderness. EYES: Pupils equal round and reactive. Extraocular motions intact. No scleral icterus. No injection or drainage. ENT: Nose without bleeding, purulent drainage or septal hematoma. Throat without erythema, tonsillar hypertrophy or exudate. Uvula midline. Airway patent. NECK: Trachea midline. No JVD or lymphadenopathy. Supple, nontender, no meningeal signs. CARDIOVASCULAR: Regular rate and rhythm without murmurs, gallops, or rubs. RESPIRATORY: Clear to auscultation. Breath sounds equal bilaterally. No wheezes , rales, or rhonchi. GASTROINTESTINAL: Abdomen soft, non-tender, nondistended. No hepato-splenomegaly , or palpable masses. No guarding. MUSCULOSKELETAL: Positive left shoulder and neck tenderness and pain with range of motion NEUROLOGICAL: Awake and alert Oriented X 3 Speech is clear Conversant and appropriate Follow simple commands well Answers questions appropriately Reasonable judgment and insight Recent and remote memory are intact No evidence of anxiety or depression Pupils are equal and reactive to accommodation. Extra-ocular movements, visual miller to confrontation, facial sensorimotor, tongue, palate, sternocleidomastoid testing, hearing to finger rub testing, and bilateral shoulder shrug are all intact. Sensation is intact to light touch in all extremities Strength normal major flexion and extension groups all extremities except diminished proximal greater than distal left upper extremity which appears to be related to left shoulder pain with testing Benjy's absent bilaterally No ankle clonus Plantar responses absent bilateral Fine motor movements intact upper extremities Laboratory Laboratory Tests Test 05/06/18 18:45 05/07/18 06:42 Urine Opiates Screen NEG Urine Barbiturates Screen NEG Urine Amphetamines Screen NEG Urine Benzodiazepines Screen NEG Urine Cocaine Screen NEG Urine Cannabinoids Screen NEG White Blood Count 5.8 Red Blood Count 4.72 Hemoglobin 9.1 Hematocrit 28.3 Mean Corpuscular Volume 60.0 Mean Corpuscular Hemoglobin 19.2 Mean Corpuscular Hemoglobin Concent 32.0 Red Cell Distribution Width 18.5 Platelet Count 134 Mean Platelet Volume 9.1 Neutrophils (%) (Auto) 48.0 Lymphocytes (%) (Auto) 41.8 Monocytes (%) (Auto) 7.1 Eosinophils (%) (Auto) 2.7 Basophils (%) (Auto) 0.4 Neutrophils # (Auto) 2.8 Lymphocytes # (Auto) 2.4 Monocytes # (Auto) 0.4 Eosinophils # (Auto) 0.2 Basophils # (Auto) 0.0 CBC Comment DIFF FINAL Differential Comment Blood Urea Nitrogen 10 Creatinine 0.67 Random Glucose 219 Albumin 3.0 Calcium Level 8.7 Phosphorus Level 2.5 Magnesium Level 1.7 Sodium Level 138 Potassium Level 3.6 Chloride Level 103 Carbon Dioxide Level 25.2 Anion Gap 10 Estimat Glomerular Filtration Rate 108 Date/Time Source Procedure Growth Status 05/05/18 21:15 Blood Peripheral Aerobic Blood Culture - Preliminary NO GROWTH IN 2 DAYS Resulted 05/05/18 21:15 Blood Peripheral Anaerobic Blood Culture - Preliminary NO GROWTH IN 2 DAYS Resulted 05/05/18 21:15 Throat Group A Streptococcus Screen - Final NO GP A BETA STREP ISOLATED. Complete Result Diagram: 05/07/18 0642 05/07/18 0642 Imaging Last Impressions Head CT 05/06/18 0001 Signed Impressions: CONCLUSION: 1. No acute intracranial findings. 2. Mild right-sided ethmoid sinus disease. Upper Extremity Ultrasound 05/06/18 Signed Impressions: CONCLUSION: 1. The study is negative for upper extremity deep venous thrombosis. Shoulder X-Ray 05/06/18 Signed Impressions: CONCLUSION: Mild degenerative changes otherwise negative. Cervical Spine MRI 05/06/18 Signed Impressions: CONCLUSION: 1. Bony fusion of C4 and C5. 2. Degenerative disc disease most pronounced at C3-C4 with flattening of the c ord but no signal change in the cord to suggest edema or myelomalacia. Central canal patent throughout the remaining cervical areas. Brain MRI 05/06/18 Signed Impressions: CONCLUSION: 1. Negative MRI of the brain for an acute process. 2. I do not see an etiology for the patient's acute left-sided paralysis. Chest X-Ray 05/05/182054 Signed Impressions: CONCLUSION: No active disease. Minimal basilar atelectasis. Neck CT 05/05/18 Signed Impressions: CONCLUSION: No acute findings identified. Assessment and Plan Assessment and Plan Impression: 1. Moderate C3-4 stenosis related to posterior ossific disc complex on MRI. No significant cord compression or edema. No evidence of significant foraminal stenosis to indicate significant cervical radiculopathy. Although the patient presentation is not specific for the disease, and inflammatory disorders such as neuralgic amyotrophy should be considered given the acute onset of pain primarily in the neck shoulder with severe muscular tenderness. Recommendations: Discussed with patient No surgical intervention planned. Continue physical therapy for left shoulder Left shoulder MRI Check sed rate and C-reactive protein Keon Evans MD May 07, 2018 16:13
[2018-05-07] MEDS ORDERED: CYCLOBENZAPRINE HCL 10 MG TAB PO SCH (16:30)
[2018-05-07] MEDS ORDERED: CYCLOBENZAPRINE HCL 10 MG TAB PO PRN (16:45)
[2018-05-07] MEDS ORDERED: MORPHINE SULFATE 4 MG/ML INJ IV PUSH PRN (16:45)
[2018-05-07] MEDS: LIDOCAINE HCL 5% PATCH T-DERMAL SCH (16:45)
[2018-05-07] MEDS ORDERED: MAGNESIUM SULFATE 1 GM PREMIX 100 ML IV ONE (18:00)
--- NOTE | 2018-05-07 18:11 | RADRPT ---
EXAM DATE: 05/07/2018 5:46 PM EDT AGE/SEX: 62 years / Female INDICATIONS: . Left shoulder pain after fall. CLINICAL DATA: This is the patient's subsequent encounter. Patient reports that signs and symptoms h ave been present for 2 days and indicates a pain score of 4/10. MEDICAL/SURGICAL HISTORY: Hypertension. Diabetes mellitus type II. Hysterectomy. Tubal ligati on. COMPARISON: No prior exams available for comparison. TECHNIQUE: Multiplanar, multisequence MRI examination was performed without contrast. FINDINGS: Rotator Cuff: Joint effusion is present with fluid in the subacromial and deltoid bursa. Modest join t effusion is evident as well. Minimal increased signal in the tenderness portion of the supraspinatu s tendon as it inserts on the humeral head. Minimal degenerative changes at the AC joint. Labrum: Labrum is abnormal with bony edema in the mid labrum and poor visualization of the superior labrum. Inferior labrum is rounded suggesting previous dislocation. Marrow/Cartilage: There is minimal inhomogeneous marrow identified in the labrum that could be relat ed to impaction of the humeral head with the labrum in the appropriate clinical situation. Other: Biceps tendon within the bicipital groove surrounded by fluid that could either be traumatic o r associated with tendinopathy. CONCLUSION: 1. Abnormal shoulder as above. 2. Partial tear supraspinatus tendon cannot be excluded. 3. Edema in the bony labrum that may be related to impaction. 4. Abnormal inferior glenoid labrum. Electronically signed by: Sunday Mchugh MD 05/07/2018 6:10 PM EDT
[2018-05-07] MEDS: ACETAMINOPHEN/HYDROcodone 325 MG/5 MG TAB PO PRN (20:37)
[2018-05-07] MEDS: MONTELUKAST SODIUM 10 MG TAB PO SCH (20:37)
[2018-05-07] MEDS: ENOXAPARIN SODIUM 40 MG/0.4 ML SYRINGE SQ SCH (22:36)
[2018-05-08] VITALS (8 sets, daily range): BP systolic 134–165; BP diastolic 65–74; PULSE 89–105; RESP 18–20; TEMP 97.5–98.5; O2SAT 96–98
[2018-05-08] MEDS: ACETAMINOPHEN/HYDROcodone 325 MG/5 MG TAB PO PRN (05:37)
[2018-05-08] MEDS: INSULIN ASPART SUPPLEMENTAL SCALE SQ SCH ×3 (09:06→18:19)
[2018-05-08] MEDS: FLUTICASONE PROPIONATE 50 MCG/ACT 16 GM NASAL SPRAY EACH NARE SCH (09:07)
[2018-05-08] MEDS: INSULIN DETEMIR 100 UNITS/ML VIAL SQ SCH ×2 (09:07→21:00)
[2018-05-08] MEDS: BUDESONIDE-FORMOTEROL 160/4.5 MCG INHALER INH SCH ×2 (09:07→22:11)
[2018-05-08] MEDS: SODIUM CHLORIDE 0.9% FLUSH 10 ML FLUSH IV FLUSH SCH ×2 (09:08→22:12)
[2018-05-08] MEDS: LIDOCAINE HCL 5% PATCH T-DERMAL SCH (09:09)
[2018-05-08] MEDS: DOCUSATE SODIUM 50 MG/SENNA 8.6 MG TAB PO SCH ×2 (09:10→22:12)
[2018-05-08] MEDS: GABAPENTIN 300 MG CAP PO SCH ×3 (09:10→18:00)
[2018-05-08] MEDS: PANTOPRAZOLE SOD 40 MG DELAYED RELEASE TAB PO SCH ×2 (09:10→22:12)
[2018-05-08] MEDS: amLODIPine BESYLATE 5 MG TAB PO SCH (09:10)
[2018-05-08] MEDS ORDERED: oxyCODONE/ACETAMINOPHEN 5 MG/325 MG TAB PO PRN (12:30)
--- NOTE | 2018-05-08 12:30 | HHI.PR ---
Subjective Remarks This is a 62-year-old female with a PMH of HTN, Hyperlipidemia, COPD, DM, Peripheral Neuropathy, Thalassemia and Sleep Apnea who presented to the ER with complaints of headache, weakness and pain on the left side of her neck starting earlier today. Reports associated dizziness, but no fever, chills, nausea, vomiting or diarrhea. States she ambulates w/ a cane normally however today w/ increased difficulty ambulating due to dizziness. On arrival, BP 135/63, HR 111 , O2 sat 98% on RA, Temp 100.6. CBC essentially at baseline. Chemistry unremarkable except for GFR 68. BS 313. Lactic Acid 2.5. Troponin negative. INR 1.0. CXR with no acute findings. CT Neck negative. S/p Blood Cultures, Vanc/Zosyn in ER. 6-11 Patient says that headaches continue. Denies any chest pain shortness of breath. She reports continued extreme pain in left shoulder, extreme tenderness to palpation. Cannot lift left arm up due to pain in shoulder. 6-12 Follow-up for left neck/shoulder pain with left upper extremity weakness. Patient reports continued intractable 9/10 left shoulder pain with associated weakness of the left arm. She states she is unable to lift her left arm due to the pain. Denies any numbness of the left arm. She states her pain is worse throughout the entire upper left shoulder, with radiation into the left cervical paraspinous muscles and down into the upper arm. She states her left knee also feels weak when she tries to ambulate. She otherwise denies any headache, lightheadedness, dizziness, visual changes, chest pain, palpitations, shortness of breath. 6-13 STILL COMPLAINS OF PAIN IN LEFT SHOULDER AND DECREASED MOVEMENT WILL SWITCH TO ROBAXIN FOR MUSCLE SPASMS SEEN BY NEUROSURGERY CONSULT ORTHO CONTINUE PT AND OT DW RN AND PT AND CM SWITCH TO PERCOCET FOR PO PAIN CONTROL Objective Vitals Vital Signs Date Time Temp Pulse Resp B/P (MAP) Pulse Ox O2 Delivery O2 Flow Rate FiO2 05/08/18 11:54 97.5 96 20 165/74 (104) 98 05/08/18 08:08 98.5 93 20 148/70 (96) 97 05/08/18 04:30 98.0 89 18 140/65 (90) 98 05/08/18 00:00 98.0 98 20 134/69 (90) 98 05/07/18 20:30 98.7 101 18 169/79 (109) 98 05/07/18 15:48 98.3 105 19 166/74 (104) 98 I/O 05/07/18 05/07/18 05/07/18 05/08/18 05/08/18 05/08/18 07:00 15:00 23:00 07:00 15:00 23:00 Intake Total 700 ml 675 ml Output Total 300 ml Balance 700 ml 375 ml Intake Oral 700 ml 675 ml Output Urine Total 300 ml # Voids 1 2 # Bowel Movements 0 0 Result Diagram: 05/07/1842 05/07/18 06 Objective Remarks GENERAL: Awake and alert and oriented 3 and talkative and cooperative SKIN: Warm and dry. HEAD: Atraumatic. Normocephalic. EYES: Pupils equal and round. No scleral icterus. No injection or drainage. Extraocular muscles intact ENT: No nasal bleeding or discharge. Mucous membranes pink and moist. Tongue is midline NECK: Trachea midline. No JVD. Supple CARDIOVASCULAR: Regular rate and rhythm. S1-S2 no S3 or S4 RESPIRATORY: No accessory muscle use. Clear to auscultation. Breath sounds equal bilaterally. GASTROINTESTINAL: Abdomen soft, non-tender, nondistended. Hepatic and splenic margins not palpable. Obese MUSCULOSKELETAL: Extremities without clubbing, cyanosis, or edema. No obvious deformities. NEUROLOGICAL: Awake and alert. No obvious cranial nerve deficits. Motor grossly within normal limits. For out of 5 muscle strength in the arms and legs --decreased range of motion left upper extremity and decreased range of motion of left shoulder. Normal speech. PSYCHIATRIC: Appropriate mood and affect; insight and judgment normal. Medications and IVs Current Medications Acetaminophen (Tylenol) 650 mg ONCE ONCE PO Last administered on 05/05/18at 21: 17; Start 05/05/18 at 21:00; Stop 05/05/18 at 21:01; Status DC Sodium Chloride 1,000 ml @ 1,000 mls/hr Q1H ONCE IV Last administered on at 21:16; Start 05/05/18 at 20:55; Stop 05/05/18 at 21:54; Status DC Sodium Chloride 1,000 ml @ 1,000 mls/hr Q1H ONCE IV Last administered on at 21:16; Start 05/05/18 at 20:55; Stop 05/05/18 at 21:54; Status DC Sodium Chloride 1,000 ml @ 1,000 mls/hr Q1H ONCE IV Last administered on at 21:17; Start 05/05/18 at 20:55; Stop 05/05/18 at 21:54; Status DC Piperacillin Sod/ Tazobactam Sod 50 ml @ 100 mls/hr ONCE ONCE IV Last administered on 05/05/18at 21:17; Start 05/05/18 at 21:00; Stop 05/05/18 at 21:29 ; Status DC Vancomycin HCl 1450 mg/Sodium Chloride 514.5 ml @ 250 mls/hr ONCE ONCE IV Last administered on 05/05/18at 21:34; Start 05/05/18 at 21:00; Stop 05/05/18 at 23:03; Status DC Iohexol (Omnipaque 350 Inj) 75 ml STK-MED ONCE IVCONTRAST Last administered on 05/05/18at 20:13; Start 05/05/18 at 20:13; Stop 05/05/18 at 23:14; Status DC Dextrose (D50w (Vial) Inj) 50 ml UNSCH PRN IV PUSH HYPOGLYCEMIA-SEE COMMENTS; Start 05/05/18 at 23:45 Glucagon (Glucagon Inj) 1 mg UNSCH PRN OTHER HYPOGLYCEMIA-SEE COMMENTS; Start 05/05/18 at 23:45 Insulin Aspart (NovoLOG SUPPLEMENTAL SCALE) 1 ACHS SLIDING SCALE SQ Last administered on 05/08/18at 09:06; Start 05/06/18 at 08:00 Sodium Chloride 1,000 ml @ 100 mls/hr Q10H IV Last administered on 05/06/18at 10:03; Start 05/05/18 at 23:40; Stop 05/06/18 at 17:23; Status DC Sodium Chloride (NS Flush) 2 ml UNSCH PRN IV FLUSH FLUSH AFTER USING IV ACCESS ; Start 05/05/18 at 23:45 Sodium Chloride (NS Flush) 2 ml BID IV FLUSH Last administered on 05/08/18at 09: 08; Start 05/06/18 at 09:00 Metoclopramide HCl (Reglan Inj) 5 mg Q6H PRN IV PUSH NAUSEA OR VOMITING; Start 05/05/18 at 23:45 Acetaminophen (Tylenol) 650 mg Q6H PRN PO FEVER/PAIN SCALE 1 TO 2; Start at 23:45 Morphine Sulfate (Morphine Inj) 2 mg Q3H PRN IV PUSH Pain 6-10 Last administered on 05/07/18at 12:55; Start 05/05/18 at 23:45; Stop 05/07/18 at 16:44 ; Status DC Senna/Docusate Sodium (Marquita-Colace) 1 tab BID PO Last administered on 09:10; Start 05/06/18 at 09:00 Magnesium Hydroxide (Milk Of Magnesia Liq) 30 ml Q12H PRN PO Mild constipation ; Start 05/05/18 at 23:45 Sennosides (Senokot) 17.2 mg Q12H PRN PO Moderate constipation Last administered on 05/07/18 08:21; Start 05/05/18 at 23:45 Bisacodyl (Dulcolax Supp) 10 mg DAILY PRN RECTAL SEVERE CONSITIPATION/ IF NPO ; Start 05/05/18 at 23:45 Lactulose (Lactulose Liq) 30 ml DAILY PRN PO SEVERE CONSITIPATION/ IF PO; Start 05/05/18 at 23:45 Budesonide/ Formoterol Fumarate (Symbicort 160-4.5 Mcg Inh) 2 puff Q12HR INH Last administered on 05/08/18 09:07; Start 05/06/18 at 09:00 Montelukast Sodium (Singulair) 10 mg HS PO Last administered on 05/07/18at 20:37 ; Start 05/06/18 at 21:00 Pantoprazole Sodium (Protonix) 40 mg BID PO Last administered on 05/08/18 09: 10; Start 05/06/18 at 09:00 Fluticasone Propionate (Flonase Gerald Spr) 2 spray DAILY EACH NARE Last administered on 05/08/18 09:07; Start 05/06/18 at 09:00 Insulin Detemir (Levemir Inj) 15 units Q12HR SQ Last administered on 05/08/18 09:07; Start 05/06/18 at 10:45 Amlodipine Besylate (Norvasc) 5 mg DAILY PO Last administered on 6/13/18at 09: 10; Start 05/07/18 at 09:00 Gabapentin (Neurontin) 300 mg TID PO Last administered on 05/08/18at 09:10; Start 05/06/18 at 18:00 Amlodipine Besylate (Norvasc) 5 mg ONCE ONCE PO Last administered on at 17:22; Start 05/06/18 at 17:00; Stop 05/06/18 at 17:14; Status DC Enalaprilat (Vasotec Inj) 1.25 mg Q6H PRN IV PUSH SBP>160, DBP>90; Start at 17:30 Cyclobenzaprine HCl (Flexeril) 5 mg Q8HR PO ; Start 05/07/18 at 16:30; Stop 11/12 at 16:44; Status DC Cyclobenzaprine HCl (Flexeril) 5 mg Q8HR PRN PO muscle spasms; Start 05/07/18 at 16:45 Morphine Sulfate (Morphine Inj) 2 mg Q4H PRN IV PUSH severe breakthrough pain; Start 05/07/18 at 16:45 Lidocaine HCl (Lidoderm 5% Patch.12 Hr) 1 patch DAILY T-DERMAL Last administered on 05/08/18at 09:09; Start 05/07/18 at 16:45 Acetaminophen/ Hydrocodone Bitart (Dawson 5-325 Mg) 1 tab Q6H PRN PO pain scale 3-10 Last administered on 05/08/18at 05:37; Start 05/07/18 at 16:45 Magnesium Sulfate/ Dextrose 100 ml @ 100 mls/hr ONCE ONCE IV Last administered on 05/07/18at 18:18; Start 05/07/18 at 18:00; Stop 05/07/18 at 18:59 ; Status DC Enoxaparin Sodium (Lovenox Inj) 40 mg HS SQ Last administered on 05/07/18at 22: 36; Start 05/07/18 at 21:00 A/P Problem List: (1) SIRS (systemic inflammatory response syndrome) ICD Code: R65.10 - Systemic inflammatory response syndrome (SIRS) of non- infectious origin without acute organ dysfunction Status: Acute (2) Weakness ICD Code: R53.1 - Weakness (3) COPD (chronic obstructive pulmonary disease) ICD Code: J44.9 - Chronic obstructive pulmonary disease, unspecified (4) DM (diabetes mellitus) ICD Code: E11.9 - Type 2 diabetes mellitus without complications Assessment and Plan 62-year-old female with a PMH of HTN, Hyperlipidemia, COPD, DM, Peripheral Neuropathy, Thalassemia and Sleep Apnea who presented to the ER with complaints of headache, weakness and pain on the left side of her neck starting earlier today SIRS: Temp 100.6, HR 111, Source-unclear. Reports generalized weakness/ fatigue. -UA and CXR reviewed and unremarkable -Blood cultures with NGTD -Strep screen negative -Given IVF hydration -S/p IV Vanco/Zosyn, will discontinue antibiotics for now with no identifiable source of infection and resolution of SIRS Left Shoulder Pain with LUE Weakness: concern for possible stroke vs radiculopathy vs shoulder injury. On exam pt w/ LUE weakness, strength 3/5, states new finding. -Head CT, brain MRI reviewed and unremarkable for stroke -Neck CT reviewed, no acute findings -Shoulder xray reviewed, shows mild degenerative changes otherwise negative -C-spine MRI shows moderate stenosis at C3-4 without significant cord compression/edema -Consult neurology, appreciate recommendations -Consult neurosurgery, seen by Dr. Evans, no surgical intervention recommended -PT recommending HHC -Continue gabapentin, PERCOCET PRN, added Robaxin 500 mg po q8h and lidoderm patch -heating pad -Check left shoulder MRI as weakness seems more likely secondary to severe left shoulder pain-has seen neurosurgery will consult orthopedic due to severe shoulder issues -CONSULT ORTHOPEDIC SURGERY Hypertension: uncontrolled, with blood pressures in the systolics 170s. -continue Norvasc 5mg daily -IV vasotec prn -monitor BP, adjust antihypertensives as needed COPD: Chronic Respiratory Failure. -Resume home medications, monitor O2 DM: Chronic -Continue patient's Levemir 20u sq bid ADJUSTED UP DUE TO HIGH SUGARS -Sliding scale w/ Accu-cheks -Continue diabetic diet DVT Prophylaxis: SCD/Teds; Lovenox sq Discharge Planning PENDING ORTHO CLEARANCE AND Sunday Velasco DO May 08, 2018 12:30
[2018-05-08] MEDS: METHOCARBAMOL 500 MG TAB PO SCH ×2 (13:10→22:13)
[2018-05-08] MEDS: MONTELUKAST SODIUM 10 MG TAB PO SCH (22:12)
[2018-05-08] MEDS: ENOXAPARIN SODIUM 40 MG/0.4 ML SYRINGE SQ SCH (22:13)
[2018-05-09] VITALS: BP 119/66; PULSE 97; RESP 16; TEMP 98; O2SAT 97
[2018-05-09] MEDS: INSULIN ASPART SUPPLEMENTAL SCALE SQ SCH ×3 (00:28→11:28)
[2018-05-09 05:25] LABS: AUTOMATED NEUTROPHIL # 2.9 TH/MM3 (1.8-7.7); BASOPHIL % 0.2 % (0.0-2.0); EOSINOPHIL # 0.1 TH/MM3 (0-0.4); EOSINOPHIL % 2.4 % (0.0-4.0); HEMATOCRIT 28.5 % (35.0-46.0); LYMPH % 41.4 % (9.0-44.0); LYMPHOCYTE # 2.5 TH/MM3 (1.0-4.8); MEAN CORPUSCULAR HEMOGLOBIN 19.2 PG (27.0-34.0); MEAN CORPUSCULAR HGB CONC 31.5 % (32.0-36.0); MEAN PLATELET VOLUME 8.4 FL (7.0-11.0); MONOCYTE # 0.5 TH/MM3 (0-0.9); PLATELET COUNT 142 TH/MM3 (150-450); RED BLOOD COUNT 4.68 MIL/MM3 (4.00-5.30); RED CELL DISTRIBUTION WIDTH 19.1 % (11.6-17.2); WHITE BLOOD COUNT 6.1 TH/MM3 (4.0-11.0)
[2018-05-09 05:47] LABS: ALBUMIN 3.1 GM/DL (3.4-5.0); AST (GOT) 7 U/L (15-37); BICARBONATE 27.6 MEQ/L (21.0-32.0); BLOOD UREA NITROGEN 13 MG/DL (7-18); CALCIUM 9.2 MG/DL (8.5-10.1); CHLORIDE 101 MEQ/L (98-107); CREATININE 0.68 MG/DL (0.50-1.00); GLOMERULAR FILTRATION RATE 106 ML/MIN (>89); GLUCOSE,RANDOM 192 MG/DL (74-106); MAGNESIUM 1.9 MG/DL (1.5-2.5); SODIUM (NA) 137 MEQ/L (136-145)
[2018-05-09 05:48] LABS: ALT (GPT) 15 U/L (10-53); PHOSPHORUS 3.1 MG/DL (2.5-4.9)
[2018-05-09 05:56] LABS: ALKALINE PHOSPHATASE 87 U/L (45-117); TOTAL BILIRUBIN ADULT 0.3 MG/DL (0.2-1.0); TOTAL PROTEIN 7.7 GM/DL (6.4-8.2)
[2018-05-09] MEDS: METHOCARBAMOL 500 MG TAB PO SCH ×2 (06:20→11:27)
[2018-05-09 08:00] VITALS: BP 159/70; PULSE 97; RESP 18; TEMP 98.7; O2SAT 96
[2018-05-09] MEDS: PANTOPRAZOLE SOD 40 MG DELAYED RELEASE TAB PO SCH (08:43)
[2018-05-09] MEDS: DOCUSATE SODIUM 50 MG/SENNA 8.6 MG TAB PO SCH (08:43)
[2018-05-09] MEDS: GABAPENTIN 300 MG CAP PO SCH ×2 (08:43→11:27)
[2018-05-09] MEDS: LIDOCAINE HCL 5% PATCH T-DERMAL SCH (08:43)
[2018-05-09] MEDS: amLODIPine BESYLATE 5 MG TAB PO SCH (08:43)
[2018-05-09] MEDS: INSULIN DETEMIR 100 UNITS/ML VIAL SQ SCH (08:44)
[2018-05-09] MEDS: SODIUM CHLORIDE 0.9% FLUSH 10 ML FLUSH IV FLUSH SCH (08:44)
[2018-05-09] MEDS: BUDESONIDE-FORMOTEROL 160/4.5 MCG INHALER INH SCH (08:44)
[2018-05-09] MEDS: FLUTICASONE PROPIONATE 50 MCG/ACT 16 GM NASAL SPRAY EACH NARE SCH (08:45)
--- NOTE | 2018-05-09 10:27 | PD.CONS ---
HPI Service Orthopedic Surgeons Consult Requested By Dr. Armstrong Reason for Consult Painful left shoulder with weakness Primary Care Physician Unknown Admission Diagnosis SIRS Diagnoses: (1) SIRS (systemic inflammatory response syndrome) Diagnosis: Principal (2) Weakness Diagnosis: Secondary (3) COPD (chronic obstructive pulmonary disease) Diagnosis: Secondary (4) DM (diabetes mellitus) Diagnosis: Secondary Chief Complaint: Painful left shoulder History of Present Illness This patient is a 62-year-old female who stated that 4 days ago she was admitted to the hospital because of significant weakness imbalance and difficulty with walking. She began developing pain in the region of her neck and left shoulder several days prior to that. During her hospitalization, an MRI scan left shoulder was obtained showing evidence of significant swelling of the supraspinatus tendon and some chronic changes. I have been asked to see her in consultation regarding her left shoulder condition Past Family Social History Past Medical History PMH: HTN, Hyperlipidemia, COPD, DM, Peripheral Neuropathy, Thalassemia and Sleep Apnea Past Surgical History PAST SURGICAL HISTORY: Hysterectomy Allergies: Coded Allergies: codeine (Unverified Allergy, Intermediate, Rash, 05/05/18) Active Ordered Medications Current Medications Medications (Trade) Dose Ordered Sig/Gladis Route Start Time Stop Time Status Last Admin (D50w (Vial) Inj) 50 ml UNSCH PRN IV PUSH 05/05/18 23:45 (Glucagon Inj) 1 mg UNSCH PRN OTHER 05/05/18 23:45 (NovoLOG SUPPLEMENTAL SCALE) 1 ACHS SLIDING SCALE SQ 05/06/18 08:00 05/09/18 08:44 (NS Flush) 2 ml UNSCH PRN IV FLUSH 05/05/18 23:45 (NS Flush) 2 ml BID IV FLUSH 05/06/18 09:00 05/09/18 08:44 (Reglan Inj) 5 mg Q6H PRN IV PUSH 05/05/18 23:45 (Tylenol) 650 mg Q6H PRN PO 05/05/18 23:45 05/08/18 18:21 (Marquita-Colace) 1 tab BID PO 05/06/18 09:00 05/09/18 08:43 (Milk Of Magnesia Liq) 30 ml Q12H PRN PO 05/05/18 23:45 (Senokot) 17.2 mg Q12H PRN PO 05/05/18 23:45 05/07/18 08:21 (Dulcolax Supp) 10 mg DAILY PRN RECTAL 05/05/18 23:45 (Lactulose Liq) 30 ml DAILY PRN PO 05/05/18 23:45 (Symbicort 160-4.5 Mcg Inh) 2 puff Q12HR INH 05/06/18 09:00 05/09/18 08:44 (Singulair) 10 mg HS PO 05/06/18 21:00 05/08/18 22:12 (Protonix) 40 mg BID PO 05/06/18 09:00 05/09/18 08:43 (Flonase Gerald Spr) 2 spray DAILY EACH NARE 05/06/18 09:00 05/09/18 08:45 (Norvasc) 5 mg DAILY PO 05/07/18 09:00 05/09/18 08:43 (Neurontin) 300 mg TID PO 05/06/18 18:00 05/09/18 08:43 (Vasotec Inj) 1.25 mg Q6H PRN IV PUSH 05/06/18 17:30 (Morphine Inj) 2 mg Q4H PRN IV PUSH 05/07/18 16:45 (Lidoderm 5% Patch.12 Hr) 1 patch DAILY T-DERMAL 05/07/18 16:45 05/09/18 08:43 (Lovenox Inj) 40 mg HS SQ 05/07/18 21:00 05/08/18 22:13 (Robaxin) 500 mg Q8HR PO 05/08/18 14:00 05/09/18 06:20 (Levemir Inj) 20 units Q12HR SQ 05/08/18 21:00 05/09/18 08:44 (Percocet 5-325 Mg) 1 tab Q6H PRN PO 05/08/18 12:30 05/09/18 06:24 Reported Meds & Active Scripts Active Reported Hydroxyzine HCl 25 Mg Tab 25 Mg PO DAILY PRN Toviaz ER (Fesoterodine Fumarate) 8 Mg Vikas 8 Mg PO HS Amlodipine (Amlodipine Besylate) 5 Mg Tab 5 Mg PO DAILY Zantac (Ranitidine HCl) 150 Mg Tab 150 Mg PO BID Flonase Nasal Shelby (Fluticasone Nasal Shelby) 50 Mcg/Act Shelby 2 Shelby EACH NARE DAILY Gabapentin 300 Mg Cap 300 Mg PO TID Lantus Inj (Insulin Glargine) 1,000 Unit/10 Ml Vial 30 Units SQ HS Humalog Inj (Insulin Human Lispro) 1,000 Unit/10 Ml Vial 5-9 Units SQ TIDAC SLIDING SCALE: 150-200=5 units, 201-250=7 units, 251-300=9 units Levemir Inj (Insulin Detemir) 1,000 unit/ 10 ML Vial 20 Units SQ HS Do not mix with any other Insulin. Symbicort Inh (Budesonide/Formoterol Fumarate) 160-4.5 Mcg/Act Aero 2 Puff INH Q12HR Pantoprazole (Pantoprazole Sodium) 40 Mg Tab 40 Mg PO BID Singulair (Montelukast Sodium) 10 Mg Tab 10 Mg PO HS Family History PAST FAMILY HISTORY: Reviewed. No h/o DM or CAD Social History PAST SOCIAL HISTORY: Occasional alcohol. Negative for tobacco or drugs. Physical Exam Vital Signs Vital Signs Date Time Temp Pulse Resp B/P (MAP) Pulse Ox O2 Delivery O2 Flow Rate FiO2 05/09/18 08:00 97 05/09/18 08:00 98.7 97 18 159/70 (99) 96 05/09/18 07:42 16 05/09/18 00:00 98.0 97 16 119/66 (83) 97 05/08/18 20:00 98.2 105 18 146/69 (94) 96 05/08/18 17:31 98 05/08/18 16:05 98.2 105 20 145/73 (97) 96 05/08/18 12:00 89 05/08/18 11:54 97.5 96 20 165/74 (104) 98 Physical Exam The patient is in bed. Range of motion cervical spine is restricted. Moderate tenderness over the region of the left shoulder. Mild swelling. No warmth or redness. Range of motion left shoulder is very painful. Elbow and wrist examination is normal. Isolation of the muscles of the left shoulder diffusely show weakness related to pain. Radial pulse 2+. Sensation normal in the hand. Dorsiflexion of the wrist 5/5, triceps 5/5, biceps 5/5 except for left shoulder pain. Hand electric motor mechanic 4+/5 Laboratory Laboratory Tests Test 05/08/18 21:38 05/09/18 05:00 Erythrocyte Sedimentation Rate 62 C-Reactive Protein 5.24 White Blood Count 6.1 Red Blood Count 4.68 Hemoglobin 9.0 Hematocrit 28.5 Mean Corpuscular Volume 61.0 Mean Corpuscular Hemoglobin 19.2 Mean Corpuscular Hemoglobin Concent 31.5 Red Cell Distribution Width 19.1 Platelet Count 142 Mean Platelet Volume 8.4 Neutrophils (%) (Auto) 48.0 Lymphocytes (%) (Auto) 41.4 Monocytes (%) (Auto) 8.0 Eosinophils (%) (Auto) 2.4 Basophils (%) (Auto) 0.2 Neutrophils # (Auto) 2.9 Lymphocytes # (Auto) 2.5 Monocytes # (Auto) 0.5 Eosinophils # (Auto) 0.1 Basophils # (Auto) 0.0 CBC Comment DIFF FINAL Differential Comment Blood Urea Nitrogen 13 Creatinine 0.68 Random Glucose 192 Total Protein 7.7 Albumin 3.1 Calcium Level 9.2 Phosphorus Level 3.1 Magnesium Level 1.9 Alkaline Phosphatase 87 Aspartate Amino Transf (AST/SGOT) 7 Alanine Aminotransferase (ALT/SGPT) 15 Total Bilirubin 0.3 Sodium Level 137 Potassium Level 4.0 Chloride Level 101 Carbon Dioxide Level 27.6 Anion Gap 8 Estimat Glomerular Filtration Rate 106 Free Thyroxine 1.00 Thyroid Stimulating Hormone 3rd Gen 1.680 Date/Time Source Procedure Growth Status 05/05/18 21:15 Blood Peripheral Aerobic Blood Culture - Preliminary NO GROWTH IN 3 DAYS Resulted 05/05/18 21:15 Blood Peripheral Anaerobic Blood Culture - Preliminary NO GROWTH IN 3 DAYS Resulted 05/05/18 21:15 Throat Group A Streptococcus Screen - Final NO GP A BETA STREP ISOLATED. Complete Result Diagram: 05/09/18 0500 05/09/18 0500 Imaging MRI of the left shoulder with review of the radiologist interpretation shows significant swelling of the supraspinatus tendon consistent with tendinopathy but no evidence of a full tear. Some chronic changes of the glenoid labrum are seen suggestive of recent injury. No fracture. No abnormal fluid collection or evidence of infection Assessment & Plan Assessment and Plan Subacromial bursitis/tendinitis the left shoulder. Early adhesive capsulitis, left shoulder. Plan: Ice and conservative care. If medically appropriate, consider Medrol Dosepak. I would hold off on physical therapy at this time but probably start that within the next week. The patient may need a cortisone injection in the left shoulder at some time. Nonsurgical treatment of her left shoulder condition. Sling to the left shoulder Brandon Dooley MD May 09, 2018 10:27
--- NOTE | 2018-05-09 11:29 | HHI.PR ---
Subjective Remarks This is a 62-year-old female with a PMH of HTN, Hyperlipidemia, COPD, DM, Peripheral Neuropathy, Thalassemia and Sleep Apnea who presented to the ER with complaints of headache, weakness and pain on the left side of her neck starting earlier today. Reports associated dizziness, but no fever, chills, nausea, vomiting or diarrhea. States she ambulates w/ a cane normally however today w/ increased difficulty ambulating due to dizziness. On arrival, BP 135/63, HR 111 , O2 sat 98% on RA, Temp 100.6. CBC essentially at baseline. Chemistry unremarkable except for GFR 68. BS 313. Lactic Acid 2.5. Troponin negative. INR 1.0. CXR with no acute findings. CT Neck negative. S/p Blood Cultures, Vanc/Zosyn in ER. 6-11 Patient says that headaches continue. Denies any chest pain shortness of breath. She reports continued extreme pain in left shoulder, extreme tenderness to palpation. Cannot lift left arm up due to pain in shoulder. 6-12 Follow-up for left neck/shoulder pain with left upper extremity weakness. Patient reports continued intractable 9/10 left shoulder pain with associated weakness of the left arm. She states she is unable to lift her left arm due to the pain. Denies any numbness of the left arm. She states her pain is worse throughout the entire upper left shoulder, with radiation into the left cervical paraspinous muscles and down into the upper arm. She states her left knee also feels weak when she tries to ambulate. She otherwise denies any headache, lightheadedness, dizziness, visual changes, chest pain, palpitations, shortness of breath. 6-13 STILL COMPLAINS OF PAIN IN LEFT SHOULDER AND DECREASED MOVEMENT WILL SWITCH TO ROBAXIN FOR MUSCLE SPASMS SEEN BY NEUROSURGERY CONSULT ORTHO CONTINUE PT AND OT DW RN AND PT AND CM SWITCH TO PERCOCET FOR PO PAIN CONTROL 6-14 SEEN BY ORTHO CAN FOLLOW UP AN OUTPT DC TO HOME START MEDROL DOSE PACK AT HOME Objective Vitals Vital Signs Date Time Temp Pulse Resp B/P (MAP) Pulse Ox O2 Delivery O2 Flow Rate FiO2 05/09/18 08:00 97 05/09/18 08:00 98.7 97 18 159/70 (99) 96 05/09/18 07:42 16 05/09/18 00:00 98.0 97 16 119/66 (83) 97 05/08/18 20:00 98.2 105 18 146/69 (94) 96 05/08/18 17:31 98 05/08/18 16:05 98.2 105 20 145/73 (97) 96 05/08/18 12:00 89 05/08/18 11:54 97.5 96 20 165/74 (104) 98 I/O 05/08/18 05/08/18 05/08/18 05/09/18 05/09/18 05/09/18 07:00 15:00 23:00 07:00 15:00 23:00 Intake Total 675 ml Output Total 300 ml 700 ml Balance 375 ml -700 ml Intake Oral 675 ml Output Urine Total 300 ml 700 ml # Voids 2 # Bowel Movements 0 Result Diagram: 05/09/18 0500 05/09/18 0500 Other Results Laboratory Tests Test 05/06/18 18:45 05/07/18 06:42 05/08/18 21:38 05/09/18 05:00 Urine Opiates Screen NEG Urine Barbiturates Screen NEG Urine Amphetamines Screen NEG Urine Benzodiazepines Screen NEG Urine Cocaine Screen NEG Urine Cannabinoids Screen NEG White Blood Count 5.8 TH/MM3 6.1 TH/MM3 Red Blood Count 4.72 MIL/MM3 4.68 MIL/MM3 Hemoglobin 9.1 GM/DL 9.0 GM/DL Hematocrit 28.3 % 28.5 % Mean Corpuscular Volume 60.0 FL 61.0 FL Mean Corpuscular Hemoglobin 19.2 PG 19.2 PG Mean Corpuscular Hemoglobin Concent 32.0 % 31.5 % Red Cell Distribution Width 18.5 % 19.1 % Platelet Count 134 TH/MM3 142 TH/MM3 Mean Platelet Volume 9.1 FL 8.4 FL Neutrophils (%) (Auto) 48.0 % 48.0 % Lymphocytes (%) (Auto) 41.8 % 41.4 % Monocytes (%) (Auto) 7.1 % 8.0 % Eosinophils (%) (Auto) 2.7 % 2.4 % Basophils (%) (Auto) 0.4 % 0.2 % Neutrophils # (Auto) 2.8 TH/MM3 2.9 TH/MM3 Lymphocytes # (Auto) 2.4 TH/MM3 2.5 TH/MM3 Monocytes # (Auto) 0.4 TH/MM3 0.5 TH/MM3 Eosinophils # (Auto) 0.2 TH/MM3 0.1 TH/MM3 Basophils # (Auto) 0.0 TH/MM3 0.0 TH/MM3 CBC Comment DIFF FINAL DIFF FINAL Differential Comment Blood Urea Nitrogen 10 MG/DL 13 MG/DL Creatinine 0.67 MG/DL 0.68 MG/DL Random Glucose 219 MG/DL 192 MG/DL Albumin 3.0 GM/DL 3.1 GM/DL Calcium Level 8.7 MG/DL 9.2 MG/DL Phosphorus Level 2.5 MG/DL 3.1 MG/DL Magnesium Level 1.7 MG/DL 1.9 MG/DL Sodium Level 138 MEQ/L 137 MEQ/L Potassium Level 3.6 MEQ/L 4.0 MEQ/L Chloride Level 103 MEQ/L 101 MEQ/L Carbon Dioxide Level 25.2 MEQ/L 27.6 MEQ/L Anion Gap 10 MEQ/L 8 MEQ/L Estimat Glomerular Filtration Rate 108 ML/MIN 106 ML/MIN Erythrocyte Sedimentation Rate 62 mm/hr C-Reactive Protein 5.24 MG/DL Total Protein 7.7 GM/DL Alkaline Phosphatase 87 U/L Aspartate Amino Transf (AST/SGOT) 7 U/L Alanine Aminotransferase (ALT/SGPT) 15 U/L Total Bilirubin 0.3 MG/DL Free Thyroxine 1.00 NG/DL Thyroid Stimulating Hormone 3rd Gen 1.680 uIU/ML Imaging Last Impressions Shoulder MRI 05/07/18 Signed Impressions: CONCLUSION: 1. Abnormal shoulder as above. 2. Partial tear supraspinatus tendon cannot be excluded. 3. Edema in the bony labrum that may be related to impaction. 4. Abnormal inferior glenoid labrum. Head CT 05/06/182054 Signed Impressions: CONCLUSION: 1. No acute intracranial findings. 2. Mild right-sided ethmoid sinus disease. Upper Extremity Ultrasound 05/06/18 Signed Impressions: CONCLUSION: 1. The study is negative for upper extremity deep venous thrombosis. Shoulder X-Ray 05/06/18 Signed Impressions: CONCLUSION: Mild degenerative changes otherwise negative. Cervical Spine MRI 05/06/18 Signed Impressions: CONCLUSION: 1. Bony fusion of C4 and C5. 2. Degenerative disc disease most pronounced at C3-C4 with flattening of the c ord but no signal change in the cord to suggest edema or myelomalacia. Central canal patent throughout the remaining cervical areas. Brain MRI 05/06/18 0000 Signed Impressions: CONCLUSION: 1. Negative MRI of the brain for an acute process. 2. I do not see an etiology for the patient's acute left-sided paralysis. Chest X-Ray 05/05/182054 Signed Impressions: CONCLUSION: No active disease. Minimal basilar atelectasis. Neck CT 05/05/18 Signed Impressions: CONCLUSION: No acute findings identified. Objective Remarks GENERAL: Awake and alert and oriented 3 and talkative and cooperative SKIN: Warm and dry. HEAD: Atraumatic. Normocephalic. EYES: Pupils equal and round. No scleral icterus. No injection or drainage. Extraocular muscles intact ENT: No nasal bleeding or discharge. Mucous membranes pink and moist. Tongue is midline NECK: Trachea midline. No JVD. Supple CARDIOVASCULAR: Regular rate and rhythm. S1-S2 no S3 or S4 RESPIRATORY: No accessory muscle use. Clear to auscultation. Breath sounds equal bilaterally. GASTROINTESTINAL: Abdomen soft, non-tender, nondistended. Hepatic and splenic margins not palpable. Obese MUSCULOSKELETAL: Extremities without clubbing, cyanosis, or edema. No obvious deformities. NEUROLOGICAL: Awake and alert. No obvious cranial nerve deficits. Motor grossly within normal limits. For out of 5 muscle strength in the arms and legs --decreased range of motion left upper extremity and decreased range of motion of left shoulder. Normal speech. PSYCHIATRIC: Appropriate mood and affect; insight and judgment normal. Procedures NONE Medications and IVs Current Medications Acetaminophen (Tylenol) 650 mg ONCE ONCE PO Last administered on 05/05/18at 21: 17; Start 05/05/18 at 21:00; Stop 05/05/18 at 21:01; Status DC Sodium Chloride 1,000 ml @ 1,000 mls/hr Q1H ONCE IV Last administered on at 21:16; Start 05/05/18 at 20:55; Stop 05/05/18 at 21:54; Status DC Sodium Chloride 1,000 ml @ 1,000 mls/hr Q1H ONCE IV Last administered on at 21:16; Start 05/05/18 at 20:55; Stop 05/05/18 at 21:54; Status DC Sodium Chloride 1,000 ml @ 1,000 mls/hr Q1H ONCE IV Last administered on at 21:17; Start 05/05/18 at 20:55; Stop 05/05/18 at 21:54; Status DC Piperacillin Sod/ Tazobactam Sod 50 ml @ 100 mls/hr ONCE ONCE IV Last administered on 05/05/18at 21:17; Start 05/05/18 at 21:00; Stop 05/05/18 at 21:29 ; Status DC Vancomycin HCl 1450 mg/Sodium Chloride 514.5 ml @ 250 mls/hr ONCE ONCE IV Last administered on 05/05/18at 21:34; Start 05/05/18 at 21:00; Stop 05/05/18 at 23:03; Status DC Iohexol (Omnipaque 350 Inj) 75 ml STK-MED ONCE IVCONTRAST Last administered on 05/05/18at 20:13; Start 05/05/18 at 20:13; Stop 05/05/18 at 23:14; Status DC Dextrose (D50w (Vial) Inj) 50 ml UNSCH PRN IV PUSH HYPOGLYCEMIA-SEE COMMENTS; Start 05/05/18 at 23:45 Glucagon (Glucagon Inj) 1 mg UNSCH PRN OTHER HYPOGLYCEMIA-SEE COMMENTS; Start 05/05/18 at 23:45 Insulin Aspart (NovoLOG SUPPLEMENTAL SCALE) 1 ACHS SLIDING SCALE SQ Last administered on 05/09/18at 08:44; Start 05/06/18 at 08:00 Sodium Chloride 1,000 ml @ 100 mls/hr Q10H IV Last administered on 05/06/18at 10:03; Start 05/05/18 at 23:40; Stop 05/06/18 at 17:23; Status DC Sodium Chloride (NS Flush) 2 ml UNSCH PRN IV FLUSH FLUSH AFTER USING IV ACCESS ; Start 05/05/18 at 23:45 Sodium Chloride (NS Flush) 2 ml BID IV FLUSH Last administered on 05/09/18at 08: 44; Start 05/06/18 at 09:00 Metoclopramide HCl (Reglan Inj) 5 mg Q6H PRN IV PUSH NAUSEA OR VOMITING; Start 05/05/18 at 23:45 Acetaminophen (Tylenol) 650 mg Q6H PRN PO FEVER/PAIN SCALE 1 TO 2 Last administered on 05/08/18at 18:21; Start 05/05/18 at 23:45 Morphine Sulfate (Morphine Inj) 2 mg Q3H PRN IV PUSH Pain 6-10 Last administered on 05/07/18at 12:55; Start 05/05/18 at 23:45; Stop 05/07/18 at 16:44 ; Status DC Senna/Docusate Sodium (Marquita-Colace) 1 tab BID PO Last administered on at 08:43; Start 05/06/18 at 09:00 Magnesium Hydroxide (Milk Of Magnesia Liq) 30 ml Q12H PRN PO Mild constipation ; Start 05/05/18 at 23:45 Sennosides (Senokot) 17.2 mg Q12H PRN PO Moderate constipation Last administered on 05/07/18 08:21; Start 05/05/18 at 23:45 Bisacodyl (Dulcolax Supp) 10 mg DAILY PRN RECTAL SEVERE CONSITIPATION/ IF NPO ; Start 05/05/18 at 23:45 Lactulose (Lactulose Liq) 30 ml DAILY PRN PO SEVERE CONSITIPATION/ IF PO; Start 05/05/18 at 23:45 Budesonide/ Formoterol Fumarate (Symbicort 160-4.5 Mcg Inh) 2 puff Q12HR INH Last administered on 05/09/18at 08:44; Start 05/06/18 at 09:00 Montelukast Sodium (Singulair) 10 mg HS PO Last administered on 05/08/18at 22:12 ; Start 05/06/18 at 21:00 Pantoprazole Sodium (Protonix) 40 mg BID PO Last administered on 05/09/18at 08: 43; Start 05/06/18 at 09:00 Fluticasone Propionate (Flonase Gerald Spr) 2 spray DAILY EACH NARE Last administered on 05/09/18 08:45; Start 05/06/18 at 09:00 Insulin Detemir (Levemir Inj) 15 units Q12HR SQ Last administered on 05/08/18 09:07; Start 05/06/18 at 10:45; Stop 05/08/18 at 12:26; Status DC Amlodipine Besylate (Norvasc) 5 mg DAILY PO Last administered on 05/09/18at 08: 43; Start 05/07/18 at 09:00 Gabapentin (Neurontin) 300 mg TID PO Last administered on 05/09/18at 08:43; Start 05/06/18 at 18:00 Amlodipine Besylate (Norvasc) 5 mg ONCE ONCE PO Last administered on at 17:22; Start 05/06/18 at 17:00; Stop 05/06/18 at 17:14; Status DC Enalaprilat (Vasotec Inj) 1.25 mg Q6H PRN IV PUSH SBP>160, DBP>90; Start at 17:30 Cyclobenzaprine HCl (Flexeril) 5 mg Q8HR PO ; Start 05/07/18 at 16:30; Stop 11/12 at 16:44; Status DC Cyclobenzaprine HCl (Flexeril) 5 mg Q8HR PRN PO muscle spasms; Start 05/07/18 at 16:45; Stop 05/08/18 at 12:18; Status DC Morphine Sulfate (Morphine Inj) 2 mg Q4H PRN IV PUSH severe breakthrough pain; Start 05/07/18 at 16:45 Lidocaine HCl (Lidoderm 5% Patch.12 Hr) 1 patch DAILY T-DERMAL Last administered on 05/09/18at 08:43; Start 05/07/18 at 16:45 Acetaminophen/ Hydrocodone Bitart ([place] 5-325 Mg) 1 tab Q6H PRN PO pain scale 3-10 Last administered on 05/08/18at 05:37; Start 05/07/18 at 16:45; Stop 05/08/18 at 12:28; Status DC Magnesium Sulfate/ Dextrose 100 ml @ 100 mls/hr ONCE ONCE IV Last administered on 05/07/18at 18:18; Start 05/07/18 at 18:00; Stop 05/07/18 at 18:59 ; Status DC Enoxaparin Sodium (Lovenox Inj) 40 mg HS SQ Last administered on 05/08/18at 22: 13; Start 05/07/18 at 21:00 Methocarbamol (Robaxin) 500 mg Q8HR PO Last administered on 05/09/18at 06:20; Start 05/08/18 at 14:00 Insulin Detemir (Levemir Inj) 20 units Q12HR SQ Last administered on 05/09/18at 08:44; Start 05/08/18 at 21:00 Oxycodone/ Acetaminophen (Percocet 5-325 Mg) 1 tab Q6H PRN PO PAIN 3-10 Last administered on 05/09/18at 06:24; Start 05/08/18 at 12:30 A/P Problem List: (1) SIRS (systemic inflammatory response syndrome) ICD Code: R65.10 - Systemic inflammatory response syndrome (SIRS) of non- infectious origin without acute organ dysfunction Status: Acute (2) Weakness ICD Code: R53.1 - Weakness (3) COPD (chronic obstructive pulmonary disease) ICD Code: J44.9 - Chronic obstructive pulmonary disease, unspecified (4) DM (diabetes mellitus) ICD Code: E11.9 - Type 2 diabetes mellitus without complications Assessment and Plan 62-year-old female with a PMH of HTN, Hyperlipidemia, COPD, DM, Peripheral Neuropathy, Thalassemia and Sleep Apnea who presented to the ER with complaints of headache, weakness and pain on the left side of her neck starting earlier today SIRS: Temp 100.6, HR 111, Source-unclear. Reports generalized weakness/ fatigue. -UA and CXR reviewed and unremarkable -Blood cultures with NGTD -Strep screen negative -Given IVF hydration -S/p IV Vanco/Zosyn, will discontinue antibiotics for now with no identifiable source of infection and resolution of SIRS Left Shoulder Pain with LUE Weakness: concern for possible stroke vs radiculopathy vs shoulder injury. On exam pt w/ LUE weakness, strength 3/5, states new finding. -Head CT, brain MRI reviewed and unremarkable for stroke -Neck CT reviewed, no acute findings -Shoulder xray reviewed, shows mild degenerative changes otherwise negative -C-spine MRI shows moderate stenosis at C3-4 without significant cord compression/edema -Consult neurology, appreciate recommendations -Consult neurosurgery, seen by Dr. Evans, no surgical intervention recommended -PT recommending [facility] -Continue gabapentin, PERCOCET PRN, added Robaxin 500 mg po q8h and lidoderm patch -heating pad -Check left shoulder MRI as weakness seems more likely secondary to severe left shoulder pain-has seen neurosurgery will consult orthopedic due to severe shoulder issues -CONSULT ORTHOPEDIC SURGERY Hypertension: uncontrolled, with blood pressures in the systolics 170s. -continue Norvasc 5mg daily -IV vasotec prn -monitor BP, adjust antihypertensives as needed COPD: Chronic Respiratory Failure. -Resume home medications, monitor O2 DM: Chronic -Continue patient's Levemir 20u sq bid ADJUSTED UP DUE TO HIGH SUGARS -Sliding scale w/ Accu-cheks -Continue diabetic diet DVT Prophylaxis: SCD/Teds; Lovenox sq Discharge Planning SEEN AND CLEARED BY ORTHO DC TO HOME TODAY Sunday Portillo DO May 09, 2018 11:29
[2018-05-09 11:36] VITALS: PULSE 101
[2018-05-09] MEDS ORDERED: GABA300C5 PO (11:39)
[2018-05-09] MEDS ORDERED: MONT10TA2 PO (11:39)
[2018-05-09] MEDS ORDERED: OXYC1TAB63 PO (11:39)
[2018-05-09] MEDS ORDERED: FLUT1SPR5 EACH NARE (11:39)
[2018-05-09] MEDS ORDERED: SYMB160A INH (11:39)
[2018-05-09] MEDS ORDERED: HYDR-3133 PO (11:39)
[2018-05-09] MEDS ORDERED: HUMALOG SQ (11:39)
[2018-05-09] MEDS ORDERED: ZANT150T2 PO (11:39)
[2018-05-09] MEDS ORDERED: METH500T3 PO (11:39)
[2018-05-09] MEDS ORDERED: PRED10PA2 PO (11:39)
[2018-05-09] MEDS ORDERED: LEVEMIR SQ (11:39)
[2018-05-09] MEDS ORDERED: LIDO1ADH4 T-DERMAL (11:39)
[2018-05-09] MEDS ORDERED: PERI PO (11:39)
[2018-05-09] MEDS ORDERED: TOVI8TAB PO (11:39)
[2018-05-09] MEDS ORDERED: AMLO5TAB2 PO (11:39)
[2018-05-09] MEDS ORDERED: PANT40TA3 PO (11:39)
--- NOTE | 2018-05-09 11:42 | HHI.DS ---
Discharge Summary Admission Date May 05, 2018 at 23:42 Discharge Date: May 09, 2018 Admitting Diagnosis SIRS (1) SIRS (systemic inflammatory response syndrome) ICD Code: R65.10 - Systemic inflammatory response syndrome (SIRS) of non- infectious origin without acute organ dysfunction Diagnosis: Principal Status: Acute (2) Weakness ICD Code: R53.1 - Weakness Diagnosis: Principal (3) COPD (chronic obstructive pulmonary disease) ICD Code: J44.9 - Chronic obstructive pulmonary disease, unspecified Diagnosis: Secondary (4) DM (diabetes mellitus) ICD Code: E11.9 - Type 2 diabetes mellitus without complications Diagnosis: Principal (5) Shoulder pain, left ICD Code: M25.512 - Pain in left shoulder Diagnosis: Principal (6) GERD (gastroesophageal reflux disease) ICD Code: K21.9 - Gastro-esophageal reflux disease without esophagitis Diagnosis: Secondary Status: Chronic (7) Essential hypertension ICD Code: I10 - Essential (primary) hypertension Diagnosis: Principal Status: Chronic (8) Hyperglycemia due to type 2 diabetes mellitus ICD Code: E11.65 - Type 2 diabetes mellitus with hyperglycemia Diagnosis: Principal Status: Acute (9) Uncontrolled diabetes mellitus with hyperglycemia ICD Code: E11.65 - Type 2 diabetes mellitus with hyperglycemia Diagnosis: Principal Status: Acute Procedures NONE Brief History - From Admission This is a 62-year-old female with a PMH of HTN, Hyperlipidemia, COPD, DM, Peripheral Neuropathy, Thalassemia and Sleep Apnea who presented to the ER with complaints of headache, weakness and pain on the left side of her neck starting earlier today. Reports associated dizziness, but no fever, chills, nausea, vomiting or diarrhea. States she ambulates w/ a cane normally however today w/ increased difficulty ambulating due to dizziness. On arrival, BP 135/63, HR 111 , O2 sat 98% on RA, Temp 100.6. CBC essentially at baseline. Chemistry unremarkable except for GFR 68. BS 313. Lactic Acid 2.5. Troponin negative. INR 1.0. CXR with no acute findings. CT Neck negative. S/p Blood Cultures, Vanc/Zosyn in ER. CBC/BMP: 05/09/18 0500 05/09/18 0500 Significant Findings Laboratory Tests Test 05/06/18 18:45 05/07/18 06:42 05/08/18 21:38 05/09/18 05:00 Hemoglobin 9.1 GM/DL (11.6-15.3) 9.0 GM/DL (11.6-15.3) Hematocrit 28.3 % (35.0-46.0) 28.5 % (35.0-46.0) Mean Corpuscular Volume 60.0 FL (80.0-100.0) 61.0 FL (80.0-100.0) Mean Corpuscular Hemoglobin 19.2 PG (27.0-34.0) 19.2 PG (27.0-34.0) Red Cell Distribution Width 18.5 % (11.6-17.2) 19.1 % (11.6-17.2) Platelet Count 134 TH/MM3 (150-450) 142 TH/MM3 (150-450) Random Glucose 219 MG/DL (74-106) 192 MG/DL (74-106) Albumin 3.0 GM/DL (3.4-5.0) 3.1 GM/DL (3.4-5.0) Erythrocyte Sedimentation Rate 62 mm/hr (0-30) C-Reactive Protein 5.24 MG/DL (0.00-0.30) Mean Corpuscular Hemoglobin Concent 31.5 % (32.0-36.0) Aspartate Amino Transf (AST/SGOT) 7 U/L (15-37) Imaging Last Impressions Shoulder MRI 05/07/18 0000 Signed Impressions: CONCLUSION: 1. Abnormal shoulder as above. 2. Partial tear supraspinatus tendon cannot be excluded. 3. Edema in the bony labrum that may be related to impaction. 4. Abnormal inferior glenoid labrum. Head CT 05/06/18 0001 Signed Impressions: CONCLUSION: 1. No acute intracranial findings. 2. Mild right-sided ethmoid sinus disease. Upper Extremity Ultrasound 05/06/18 Signed Impressions: CONCLUSION: 1. The study is negative for upper extremity deep venous thrombosis. Shoulder X-Ray 05/06/18 Signed Impressions: CONCLUSION: Mild degenerative changes otherwise negative. Cervical Spine MRI 05/06/18 Signed Impressions: CONCLUSION: 1. Bony fusion of C4 and C5. 2. Degenerative disc disease most pronounced at C3-C4 with flattening of the c ord but no signal change in the cord to suggest edema or myelomalacia. Central canal patent throughout the remaining cervical areas. Brain MRI 05/06/18 Signed Impressions: CONCLUSION: 1. Negative MRI of the brain for an acute process. 2. I do not see an etiology for the patient's acute left-sided paralysis. Chest X-Ray 05/05/182054 Signed Impressions: CONCLUSION: No active disease. Minimal basilar atelectasis. Neck CT 05/05/18 Signed Impressions: CONCLUSION: No acute findings identified. PE at Discharge GENERAL: Awake and alert and oriented 3 and talkative and cooperative SKIN: Warm and dry. HEAD: Atraumatic. Normocephalic. EYES: Pupils equal and round. No scleral icterus. No injection or drainage. Extraocular muscles intact ENT: No nasal bleeding or discharge. Mucous membranes pink and moist. Tongue is midline NECK: Trachea midline. No JVD. Supple CARDIOVASCULAR: Regular rate and rhythm. S1-S2 no S3 or S4 RESPIRATORY: No accessory muscle use. Clear to auscultation. Breath sounds equal bilaterally. GASTROINTESTINAL: Abdomen soft, non-tender, nondistended. Hepatic and splenic margins not palpable. Obese MUSCULOSKELETAL: Extremities without clubbing, cyanosis, or edema. No obvious deformities. NEUROLOGICAL: Awake and alert. No obvious cranial nerve deficits. Motor grossly within normal limits. For out of 5 muscle strength in the arms and legs --decreased range of motion left upper extremity and decreased range of motion of left shoulder. Normal speech. PSYCHIATRIC: Appropriate mood and affect; insight and judgment normal. Hospital Course This is a 62-year-old female with a PMH of HTN, Hyperlipidemia, COPD, DM, Peripheral Neuropathy, Thalassemia and Sleep Apnea who presented to the ER with complaints of headache, weakness and pain on the left side of her neck starting earlier today. Reports associated dizziness, but no fever, chills, nausea, vomiting or diarrhea. States she ambulates w/ a cane normally however today w/ increased difficulty ambulating due to dizziness. On arrival, BP 135/63, HR 111 , O2 sat 98% on RA, Temp 100.6. CBC essentially at baseline. Chemistry unremarkable except for GFR 68. BS 313. Lactic Acid 2.5. Troponin negative. INR 1.0. CXR with no acute findings. CT Neck negative. S/p Blood Cultures, Vanc/Zosyn in ER. 6-11 Patient says that headaches continue. Denies any chest pain shortness of breath. She reports continued extreme pain in left shoulder, extreme tenderness to palpation. Cannot lift left arm up due to pain in shoulder. 6-12 Follow-up for left neck/shoulder pain with left upper extremity weakness. Patient reports continued intractable 9/10 left shoulder pain with associated weakness of the left arm. She states she is unable to lift her left arm due to the pain. Denies any numbness of the left arm. She states her pain is worse throughout the entire upper left shoulder, with radiation into the left cervical paraspinous muscles and down into the upper arm. She states her left knee also feels weak when she tries to ambulate. She otherwise denies any headache, lightheadedness, dizziness, visual changes, chest pain, palpitations, shortness of breath. 6-13 STILL COMPLAINS OF PAIN IN LEFT SHOULDER AND DECREASED MOVEMENT WILL SWITCH TO ROBAXIN FOR MUSCLE SPASMS SEEN BY NEUROSURGERY CONSULT ORTHO CONTINUE PT AND OT DW RN AND PT AND CM SWITCH TO PERCOCET FOR PO PAIN CONTROL 6-14 SEEN BY ORTHO CAN FOLLOW UP AN OUTPT DC TO HOME START MEDROL DOSE PACK AT HOME Pain orthopedic surgery has seen neurosurgery has been cleared by both and can be discharged to home to follow-up with orthopedic surgery in the future regarding possible need for steroid injections will place on oral steroids at discharge and pain control as well as medications for muscle spasms and narcotics for pain Pt Condition on Discharge: Good Discharge Disposition: Discharge Home Discharge Time: > 30 minutes Discharge Instructions DIET: Follow Instructions for: Heart Healthy Diet, Diabetic Diet Speech Therapy-Diet Recommends: Regular Activities you can perform: Weight Bearing as Earl Follow up Referrals: Orthopedics - 1 Week with Brandon Dooley MD PCP Follow-up - 3-5 Days New Medications: Prednisone (48) 10 mg tab Dose Pack (Prednisone (48) 10 mg tab Dose Pack) 10 Mg Dspk 10 MG PO DIRECTED for Inflammation, #1 DSPK 0 Refills Insulin Detemir Inj (Levemir Inj) 1,000 unit/ 10 ML Vial 20 UNITS SQ Q12HR for Blood Sugar Management, #6 VIAL Do not mix with any other Insulin. Lidocaine (Lidoderm) 5 % Adh..patch 1 PATCH T-DERMAL DAILY for Pain Management, #30 PATCH Methocarbamol (Methocarbamol) 500 Mg Tab 500 MG PO Q8HR for Pain Management, #90 TAB Oxycodone HCl/Acetaminophen (Oxycodone-Acetaminophen 5-325) 5 Mg-325 Mg Tablet 1 TAB PO Q6H PRN for PAIN 3-10, #60 TAB Sennosides-Docusate Sodium (Gnp Senna Plus 8.6-50 mg) 8.6 Mg-50 Mg Tab 1 TAB PO BID PRN for CONSTIPATION, #120 TAB Changed Medications: Hydroxyzine HCl (Hydroxyzine HCl) 25 Mg Tab 25 MG PO Q8HR PRN for ITCHING, #90 TAB 0 Refills (Changed from: DAILY) Continued Medications: Amlodipine (Amlodipine) 5 Mg Tab 5 MG PO DAILY for Blood Pressure Management, #30 TAB 0 Refills (This prescription has been renewed) Budesonide-Formoterol Inh (Symbicort Inh) 160-4.5 Mcg/Act Aero 2 PUFF INH Q12HR for Breathing Treatment, #1 INHALER 0 Refills (This prescription has been renewed) Fesoterodine ER (Toviaz ER) 8 Mg Vikas 8 MG PO HS for Overactive bladder, #30 TAB 0 Refills (This prescription has been renewed) Fluticasone Nasal [place] (Flonase Nasal [place]) 50 Mcg/Act [place] 2 SPRAY EACH NARE DAILY for Allergies, #1 BOTTLE 0 Refills (This prescription has been renewed) Gabapentin (Gabapentin) 300 Mg Cap 300 MG PO TID for Pain Management, #90 CAP 0 Refills (This prescription has been renewed) Insulin Lispro (Human) Inj (Humalog Inj) 1,000 Unit/10 Ml Vial 5-9 UNITS SQ TIDAC for Blood Sugar Management, #1 VIAL 0 Refills (This prescription has been renewed) SLIDING SCALE: 150-200=5 units, 201-250=7 units, 251-300=9 units Montelukast (Singulair) 10 Mg Tab 10 MG PO HS for Allergies, #30 TAB 0 Refills (This prescription has been renewed ) Pantoprazole (Pantoprazole) 40 Mg Tab 40 MG PO BID for Reflux, #60 TAB 0 Refills (This prescription has been renewed) Ranitidine (Zantac) 150 Mg Tab 150 MG PO BID for Reduce Stomach Acid, #60 TAB 0 Refills (This prescription has been renewed) Discontinued Medications: Insulin Detemir Inj (Levemir Inj) 1,000 unit/ 10 ML Vial 20 UNITS SQ HS for Blood Sugar Management, VIAL 0 Refills Do not mix with any other Insulin. Insulin Glargine Inj (Lantus Inj) 1,000 Unit/10 Ml Vial 30 UNITS SQ HS for Blood Sugar Management, VIAL 0 Refills Sunday Portillo DO May 09, 2018 11:42
[2018-05-09 11:59] VITALS: BP 172/79; PULSE 100; RESP 16; TEMP 98.5; O2SAT 100
--- NOTE | 2018-05-09 13:07 | HHI.NSPN ---
History Chief Complaint: Left shoulder and neck pain. Interval History 05/07: 62-year-old female admitted through the emergency room on 05/05/2018 with complaint of headache, dizziness and left neck pain and weakness starting on the day of admission. The patient reported generalized weakness, but on examination was noted to have significant left upper extremity paresis. Subsequent consultation by neurology with indication of possible left shoulder or cervicogenic pain. MRI brain and cervical spine negative for significant intracranial abnormality. Cervical spine MRI was also obtained, indicating C3-4 stenosis. 05/09: The patient is awake and alert sitting in bed when seen. She does appear uncomfortable and says she is "Bad" when asked how she is doing. Her left shoulder which is in a sling. She complains of pain to the left shoulder and left side of the neck. Upon examination her sensorimotor exam is essentially normal. She does have midline cervical and left trapezius tenderness to palpation. Exam Results 05/07/18 05/07/18 05/08/18 05/08/18 05/09/18 05/09/18 06:00 18:00 06:00 18:00 06:00 18:00 Intake Total 1375 ml Output Total 300 ml 700 ml Balance 1075 ml -700 ml Intake Oral 1375 ml Output Urine Total 300 ml 700 ml # Voids 3 # Bowel Movements 0 Vital Signs Date Time Temp Pulse Resp B/P (MAP) Pulse Ox O2 Delivery O2 Flow Rate FiO2 05/09/18 11:59 98.5 100 16 172/79 (110) 100 05/09/18 08:00 97 05/09/18 08:00 98.7 97 18 159/70 (99) 96 05/09/18 07:42 16 05/09/18 00:00 98.0 97 16 119/66 (83) 97 05/08/18 20:00 98.2 105 18 146/69 (94) 96 05/08/18 17:31 98 05/08/18 16:05 98.2 105 20 145/73 (97) 96 05/08/18 12:00 89 05/08/18 11:54 97.5 96 20 165/74 (104) 98 05/08/18 08:08 98.5 93 20 148/70 (96) 97 05/08/18 04:30 98.0 89 18 140/65 (90) 98 05/08/18 00:00 98.0 98 20 134/69 (90) 98 05/07/18 20:30 98.7 101 18 169/79 (109) 98 05/07/18 15:48 98.3 105 19 166/74 (104) 98 05/07/18 11:37 100 05/07/18 11:32 98.4 100 20 168/76 (106) 98 05/07/18 07:37 98.4 101 24 139/63 (88) 95 05/07/18 07:35 92 05/07/18 03:53 98.1 99 18 158/75 (102) 100 05/07/18 00:27 98.2 95 15 124/63 (83) 98 05/06/18 23:53 90 05/06/18 19:47 98.5 99 16 146/70 (95) 98 05/06/18 16:32 100 05/06/18 15:56 98.0 100 16 174/81 (112) 96 05/06/18 13:06 100 Physical Examination GENERAL: Awake & alert in bed watching TV. Affect flat but readily interacts. Appears moderately uncomfortable due to left shoulder. No distress evident. HEENT: Normocephalic, atraumatic. NECK: Midline cervical spine TTP. Left paraspinals & trapezius TTP. No JVD. Trachea midline. MUSCULOSKELETAL: LUE in a sling. TTP along the left shoulder & at the joint. NEUROLOGICAL: AAOx3. Speech clear & appropriate. Follows simple commands w/o difficulty. Motor strength is 4 to 4+/5 to hand intrinsics on the left, otherwise it is 5/5 to all major flexion & extension muscle groups of the upper extremities, to include wrist flexors & extensors and right hand intrinsics. Lab, Micro, Other Results Recent Impressions Shoulder MRI 05/07/18 0000 Signed Impressions: CONCLUSION: 1. Abnormal shoulder as above. 2. Partial tear supraspinatus tendon cannot be excluded. 3. Edema in the bony labrum that may be related to impaction. 4. Abnormal inferior glenoid labrum. Laboratory Tests Test 05/06/18 18:45 05/07/18 06:42 05/08/18 21:38 05/09/18 05:00 Urine Opiates Screen NEG Urine Barbiturates Screen NEG Urine Amphetamines Screen NEG Urine Benzodiazepines Screen NEG Urine Cocaine Screen NEG Urine Cannabinoids Screen NEG White Blood Count 5.8 TH/MM3 6.1 TH/MM3 Red Blood Count 4.72 MIL/MM3 4.68 MIL/MM3 Hemoglobin 9.1 GM/DL 9.0 GM/DL Hematocrit 28.3 % 28.5 % Mean Corpuscular Volume 60.0 FL 61.0 FL Mean Corpuscular Hemoglobin 19.2 PG 19.2 PG Mean Corpuscular Hemoglobin Concent 32.0 % 31.5 % Red Cell Distribution Width 18.5 % 19.1 % Platelet Count 134 TH/MM3 142 TH/MM3 Mean Platelet Volume 9.1 FL 8.4 FL Neutrophils (%) (Auto) 48.0 % 48.0 % Lymphocytes (%) (Auto) 41.8 % 41.4 % Monocytes (%) (Auto) 7.1 % 8.0 % Eosinophils (%) (Auto) 2.7 % 2.4 % Basophils (%) (Auto) 0.4 % 0.2 % Neutrophils # (Auto) 2.8 TH/MM3 2.9 TH/MM3 Lymphocytes # (Auto) 2.4 TH/MM3 2.5 TH/MM3 Monocytes # (Auto) 0.4 TH/MM3 0.5 TH/MM3 Eosinophils # (Auto) 0.2 TH/MM3 0.1 TH/MM3 Basophils # (Auto) 0.0 TH/MM3 0.0 TH/MM3 CBC Comment DIFF FINAL DIFF FINAL Differential Comment Blood Urea Nitrogen 10 MG/DL 13 MG/DL Creatinine 0.67 MG/DL 0.68 MG/DL Random Glucose 219 MG/DL 192 MG/DL Albumin 3.0 GM/DL 3.1 GM/DL Calcium Level 8.7 MG/DL 9.2 MG/DL Phosphorus Level 2.5 MG/DL 3.1 MG/DL Magnesium Level 1.7 MG/DL 1.9 MG/DL Sodium Level 138 MEQ/L 137 MEQ/L Potassium Level 3.6 MEQ/L 4.0 MEQ/L Chloride Level 103 MEQ/L 101 MEQ/L Carbon Dioxide Level 25.2 MEQ/L 27.6 MEQ/L Anion Gap 10 MEQ/L 8 MEQ/L Estimat Glomerular Filtration Rate 108 ML/MIN 106 ML/MIN Erythrocyte Sedimentation Rate 62 mm/hr C-Reactive Protein 5.24 MG/DL Total Protein 7.7 GM/DL Alkaline Phosphatase 87 U/L Aspartate Amino Transf (AST/SGOT) 7 U/L Alanine Aminotransferase (ALT/SGPT) 15 U/L Total Bilirubin 0.3 MG/DL Free Thyroxine 1.00 NG/DL Thyroid Stimulating Hormone 3rd Gen 1.680 uIU/ML Medical Decision Making Impression and Plan Impression: 1. Moderate C3-4 stenosis related to posterior ossific disc complex on MRI. No significant cord compression or edema. No evidence of significant foraminal stenosis to indicate significant cervical radiculopathy. Although the patient presentation is not specific for the disease, and inflammatory disorders such as neuralgic amyotrophy should be considered given the acute onset of pain primarily in the neck shoulder with severe muscular tenderness. Patient is doing well except for left shoulder pain. Essentially normal sensorimotor exam to BUE. Midline cervical and left trapezius/shoulder pain. Past 24 hrs: Afebrile. Intermittent tachycardia. SBP intermittently elevated. Reviewed labs for today. Haemoglobin level essentially stable. Improvement in thrombocytopenia. ESR & CRP from are elevated. MRI left shoulder w/partial supraspinatus tendon tear, bony labrum edema r/t impaction & abnormal inferior glenoid labrum. MRI cervical spine w/bony fusion of C4 & C5 and degenerative disc disease w/flattening of the cord. No signal change indicative of edema or myelomalacia. Central canal patent. MRI brain w/o any acute process. CT brain w/o any acute process. CT neck w/o any acute findings. Plan: Discussed with patient [employer] patient w/assistance. Physical & Occupational Therapy eval & tx. No indication for neurosurgical intervention. Willie Lofton May 09, 2018 13:07
[2018-05-09 17:37] LABS: HEMOGLOBIN A1C 11.7 % (4.3-6.0)
== END 2018-05-09 16:45 | disposition home or self-care (01) | DRG 552 ==
LOC: NEPE 20:12 → NEDA 23:42 → NEPFCDU 05-06 00:43 → N05B 05-07 15:06
PROVIDERS: ADMIT Hospitalist; ATTEND Hospitalist
DX: M48.02 Spinal stenosis, cervical region (principal); R65.10 Systemic inflammatory response syndrome (SIRS) of non-infectious origin without acute organ dysfunction; E11.42 Type 2 diabetes mellitus with diabetic polyneuropathy; M75.02 Adhesive capsulitis of left shoulder; E11.65 Type 2 diabetes mellitus with hyperglycemia; M75.52 Bursitis of left shoulder; I10 Essential (primary) hypertension; E78.5 Hyperlipidemia, unspecified; J44.9 Chronic obstructive pulmonary disease, unspecified; G47.30 Sleep apnea, unspecified; D56.9 Thalassemia, unspecified; K21.9 Gastro-esophageal reflux disease without esophagitis
CPT/HCPCS: 70450; 70491; 70551; 71045; 72141; 73030; 73221; 80053; 80069; 80307; 81001; 82550; 82948; 83036; 83605; 83690; 83735; 84100; 84439; 84443; 84484; 85025; 85610; 85652; 85730; 86140; 87040; 87081; 87804; 87880; 93005; 93971; 96365; 96368; J1650; J1815; J2270; J2543; J2765; J3370; J3475; J7030; J7040; Q9967

== ENCOUNTER 2019-01-10 20:08 | Observation (INO) ==
[2019-01-10] MEDS ORDERED: Sodium Chlor 0.9% Inj 500 ML IV.SIG ONE (22:05)
--- NOTE | 2019-01-10 22:10 | ED ---
HPI General Chief complaint: Shortness of Breath/Dyspnea Stated complaint: Respiratory Time Seen by Provider: 01/10/19 21:43 Source: patient, RN notes reviewed and old records reviewed Mode of arrival: ambulatory History of Present Illness HPI narrative: 63yF presenting with chest pain and dyspnea. The patient states that she's had "a cough and chest congestion" for the past week. She went to an urgent care center and says she had a negative CXR but was sent to the ED "to check my heart and to get a CAT scan to make sure I don't have pneumonia". She reports substernal "sharp" chest pain which radiates to her left shoulder, intermittent, not made better or worse by anything, associated with dyspnea, productive cough, and wheezing. She also reports bilateral lower extremity edema x several months, no calf pain or history of DVT/ PE. She denies fever or chills, palpitations, nausea or vomiting. She has a history of DM, HTN, and HLD and her family history is significant for both mother and father with CAD in their 60s. She is seeing a cafe site attendant in [place], is unsure if she's had an echo yet but knows that she has not yet had a stress test. Related Data Home Medications Medication Instructions Recorded Confirmed albuterol sulfate [ProAir HFA] 2 puff INHALATION Q4-6H PRN 01/11/19 01/11/19 ascorbic acid (vitamin C) [Vitamin 500 mg PO BID 01/11/19 01/11/19 C] carvedilol 6.25 mg PO BID 01/11/19 01/11/19 diphenhydramine HCl [Benadryl] 25 mg PO HS PRN 01/11/19 01/11/19 docusate sodium 50 mg PO BID 01/11/19 01/11/19 ergocalciferol (vitamin D2) 50,000 unit PO QWEEK 01/11/19 01/11/19 [Vitamin D2] fesoterodine [Toviaz] 8 mg PO HS 01/11/19 01/11/19 fluticasone [Flonase Allergy 1 spray INTRANASAL DAILY 01/11/19 01/11/19 Relief] gabapentin 500 mg PO TID 01/11/19 01/11/19 hydroxyzine HCl 50 mg PO TID PRN 01/11/19 01/11/19 insulin detemir U-100 [Levemir 50 unit SUBCUT BID 01/11/19 01/11/19 U-100 Insulin] loratadine 10 mg PO DAILY 01/11/19 01/11/19 methocarbamol 500 mg PO Q8HR 01/11/19 01/11/19 mupirocin 1 applic TOPICAL BID 01/11/19 01/11/19 oxycodone-acetaminophen 1 tab PO Q6H PRN 01/11/19 01/11/19 pantoprazole 40 mg PO BID 01/11/19 01/11/19 prednisone 10 mg PO BID 01/11/19 01/11/19 prednisone 20 mg PO AC BREAKFAST 01/11/19 01/11/19 ranitidine HCl 150 mg PO BID 01/11/19 01/11/19 topiramate 100 mg PO BID 01/11/19 01/11/19 triamcinolone acetonide 0.1 % TOPICAL DAILY 01/11/19 01/11/19 Allergies Allergy/AdvReac Type Severity Reaction Status Date / Time codeine Allergy Intermediate Rash Verified 01/10/19 21:11 Review of Systems ROS: all other systems reviewed are negative [facility] Medical History Medical History Asthma (Acute) Diabetes (Acute) Hx of hysterectomy (Acute) Thalassemia (Acute) Surgical History Surgical History Hx of tubal ligation (Acute) Social History Social History Substance History: No History of Abuse Second Hand Smoke Exposure: No Smoking Status: Never smoker How Often Do You Have a Drink Containing Alcohol: Never Recent Travel in [facility] within the Last 8 Weeks: No Recent Out of Country Travel within the Last 8 Weeks: No Immunization History Tetanus Immunization: Unsure Exam Const General: healthy appearing and no acute distress HENMT Face and sinus: normal facial exam Eyes General: appearance normal, both eyes and all related structures Chest Chest: normal inspection of the chest Resp Effort & Inspection: normal respiratory effort Auscultation: no rhonchi and no wheezes Cardio Rate: regular rate Rhythm: regular rhythm GI Inspection: non-distended Palpation: soft and nontender Skin General: no rashes or lesions noted Neuro General: alert and awake Extrem Other: Trace lower extremity edema, no calf tenderness Psych Affect: normal affect Course Initial Documented Vital Signs Temperature 97.9 F 01/10/19 20:57 Pulse Rate 109 H 01/10/19 20:57 Respiratory Rate 20 01/10/19 20:57 Blood Pressure 125/60 01/10/19 20:57 Pulse Oximetry 98 01/10/19 20:57 Last Documented Vital Signs Temperature 98.5 F 01/11/19 15:29 Pulse Rate 108 H 01/11/19 15:29 Respiratory Rate 16 01/11/19 15:29 Blood Pressure 118/58 L 01/11/19 18:04 Pulse Oximetry 98 01/11/19 15:29 Clinical Decision Support HEART Score Questions History: Moderately suspicious EKG: Normal Age: 45-64 years Risk Factors: 3 or more Risk Factors or Hx of Atherosclerotic Disease Initial Troponin: Normal Limit Heart Score HEART Score: 4 4 Wells' Criteria Questions Clinical Signs and Symptoms of DVT: No PE is primary diagnosis or equally likely: Yes Heart Rate greater than 100: Yes Immobilized at least 3 days or Surgery in previous 4 weeks: No Previous, objectively diagnosed PE or DVT: No Hemoptysis: No Malignancy with treatment within 6 months or palliative: No Wells' Criteria Score Wells' Criteria Score: 4.5 Medical Decision Making MDM Narrative Medical decision making narrative: Assessment: 63yF presenting with chest pain Plan: EKG and monitor Labs CXR CTA chest if BUN/ creat allow Patient is high risk for CAD/ ACS, would recommend that she stay in chest pain center for further evaluation. She understands and agrees with plan. Patient was evaluated/reassessed by myself via the RMA process CT of the chest is negative for any pulmonary emboli Patient will be admitted to the chest pain unit for consult with Dr. Ro Medical Screen Exam Complete: Yes Emergency Medical Condition: Yes Differential Diagnosis Differential Diagnosis: Differential diagnosis includes, but is not limited to: Pneumonia, bronchitis/ URI, ACS, PE Lab Data Result diagrams: 01/10/19 22:20 01/10/19 22:20 Lab Results 01/10/19 01/10/19 01/10/19 Range/Units 22:20 22:20 22:20 WBC 7.9 (4.0-11.0) th/mm3 RBC 5.21 (4.00-5.30) mil/mm3 Hgb 10.2 L (11.6-15.3) gm/dL Hct 32.3 L (35.0-46.0) % MCV 62.0 L (80.0-100.0) fL MCH 19.6 L (27.0-34.0) pg MCHC 31.6 L (32.0-36.0) % RDW 18.1 H (11.6-17.2) % Plt Count 161 (150-450) th/mm3 MPV 8.8 (7.0-11.0) fL Neut % (Auto) 47.7 (16.0-70.0) % Lymph % (Auto) 43.7 (9.0-44.0) % Graham % (Auto) 6.8 (0.0-8.0) % Eos % (Auto) 1.2 (0.0-4.0) % Baso % (Auto) 0.6 (0.0-2.0) % Neut # (Auto) 3.7 (1.8-7.7) th/mm3 Lymph # (Auto) 3.4 (1.0-4.8) th/mm3 Graham # (Auto) 0.5 (0.0-0.9) th/mm3 Eos # (Auto) 0.1 (0.0-0.4) th/mm3 Baso # (Auto) 0.0 (0.0-0.2) th/mm3 WBC Differential . Differential Comment Auto diff final PT 10.3 (9.8-11.6) sec INR 1.0 Ratio Sodium (136-145) meq/L Potassium (3.5-5.1) meq/L Chloride (98-107) meq/L Carbon Dioxide (21.0-32.0) meq/L Anion Gap (5-15) meq/L BUN (7-18) mg/dL Creatinine (0.50-1.00) mg/dL Estimated GFR (>89) mL/min POC Glucose (68-110) mg/dl Random Glucose (74-106) mg/dL Calcium (8.5-10.1) mg/dL Magnesium (1.5-2.5) mg/dL Total Bilirubin (0.2-1.0) mg/dL AST (15-37) U/L ALT (10-53) U/L Alkaline Phosphatase (45-117) U/L Troponin I (0.02-0.05) ng/mL B-Natriuretic Peptide 3 (0-100) pg/mL Total Protein (6.4-8.2) g/dL Albumin (3.4-5.0) g/dL 01/10/19 01/11/19 01/11/19 Range/Units 22:20 00:50 04:45 WBC (4.0-11.0) th/mm3 RBC (4.00-5.30) mil/mm3 Hgb (11.6-15.3) gm/dL Hct (35.0-46.0) % MCV (80.0-100.0) fL MCH (27.0-34.0) pg MCHC (32.0-36.0) % RDW (11.6-17.2) % Plt Count (150-450) th/mm3 MPV (7.0-11.0) fL Neut % (Auto) (16.0-70.0) % Lymph % (Auto) (9.0-44.0) % Graham % (Auto) (0.0-8.0) % Eos % (Auto) (0.0-4.0) % Baso % (Auto) (0.0-2.0) % Neut # (Auto) (1.8-7.7) th/mm3 Lymph # (Auto) (1.0-4.8) th/mm3 Graham # (Auto) (0.0-0.9) th/mm3 Eos # (Auto) (0.0-0.4) th/mm3 Baso # (Auto) (0.0-0.2) th/mm3 WBC Differential Differential Comment PT (9.8-11.6) sec INR Ratio Sodium 136 (136-145) meq/L Potassium 3.8 (3.5-5.1) meq/L Chloride 100 (98-107) meq/L Carbon Dioxide 29.9 (21.0-32.0) meq/L Anion Gap 6 (5-15) meq/L BUN 15 (7-18) mg/dL Creatinine 1.27 H (0.50-1.00) mg/dL Estimated GFR 51 L (>89) mL/min POC Glucose (68-110) mg/dl Random Glucose 240 H (74-106) mg/dL Calcium 9.4 (8.5-10.1) mg/dL Magnesium 1.9 (1.5-2.5) mg/dL Total Bilirubin 0.4 (0.2-1.0) mg/dL AST 7 L (15-37) U/L ALT 15 (10-53) U/L Alkaline Phosphatase 91 (45-117) U/L Troponin I Less than 0.02 L Less than 0.02 L Less than 0.02 L (0.02-0.05) ng/mL B-Natriuretic Peptide (0-100) pg/mL Total Protein 8.3 H (6.4-8.2) g/dL Albumin 3.7 (3.4-5.0) g/dL 01/11/19 01/11/19 Range/Units 10:51 11:38 WBC (4.0-11.0) th/mm3 RBC (4.00-5.30) mil/mm3 Hgb (11.6-15.3) gm/dL Hct (35.0-46.0) % MCV (80.0-100.0) fL MCH (27.0-34.0) pg MCHC (32.0-36.0) % RDW (11.6-17.2) % Plt Count (150-450) th/mm3 MPV (7.0-11.0) fL Neut % (Auto) (16.0-70.0) % Lymph % (Auto) (9.0-44.0) % Graham % (Auto) (0.0-8.0) % Eos % (Auto) (0.0-4.0) % Baso % (Auto) (0.0-2.0) % Neut # (Auto) (1.8-7.7) th/mm3 Lymph # (Auto) (1.0-4.8) th/mm3 Graham # (Auto) (0.0-0.9) th/mm3 Eos # (Auto) (0.0-0.4) th/mm3 Baso # (Auto) (0.0-0.2) th/mm3 WBC Differential Differential Comment PT (9.8-11.6) sec INR Ratio Sodium (136-145) meq/L Potassium (3.5-5.1) meq/L Chloride (98-107) meq/L Carbon Dioxide (21.0-32.0) meq/L Anion Gap (5-15) meq/L BUN (7-18) mg/dL Creatinine (0.50-1.00) mg/dL Estimated GFR (>89) mL/min POC Glucose 99 153 H (68-110) mg/dl Random Glucose (74-106) mg/dL Calcium (8.5-10.1) mg/dL Magnesium (1.5-2.5) mg/dL Total Bilirubin (0.2-1.0) mg/dL AST (15-37) U/L ALT (10-53) U/L Alkaline Phosphatase (45-117) U/L Troponin I (0.02-0.05) ng/mL B-Natriuretic Peptide (0-100) pg/mL Total Protein (6.4-8.2) g/dL Albumin (3.4-5.0) g/dL Imaging Data Radiologist's impression: Chest X-Ray 01/10/19 22:06 CONCLUSION: No acute cardiopulmonary process. Myocardial Perfusion Scan Nuc Med 01/11/19 10:13 CONCLUSION: 1. No reversible perfusion defects to suggest ischemia. 2. Normal ejection fraction. Chest CTA 01/11/19 22:05 CONCLUSION: This study is negative for pulmonary embolism. ECG Data Attestation: I personally reviewed and interpreted this ECG as follows: Interpretation: Rate: 102 BPM Rhythm: Sinus [place]: Normal Intervals: Normal intervals, no blocks, QTc 400 ms Q waves: III T waves: Inverted in aVL ST segments: No elevations or depressions Impression: Non-specific EKG, no changes as compared to EKG from 05/05/2018. Discharge Plan Discharge Disposition Patient Disposition: ED Admit(ED Internal Use Only) Discharge Condition Condition: Stable Discharge Order Discharge Orders: Discharge Order (Routine); Ordered 01/11/19 Ordered By: Librado Guzman ED Use Only Admit Order (Routine); Ordered 01/11/19 Ordered By: Jessuita Peterson Discharge Details Diagnosis: Chest pain Physicians Team ED Provider: Paris Sun ED Midlevel Provider: Jesusita Peterson Primary Care Provider: Varghese Shukla Attending Provider: Valeri Ro Status ED Status: Left Department Discharge Information Discharge Date/Time: 01/11/19 05:35
--- NOTE | 2019-01-10 22:52 | XR ---
EXAM DATE: 01/10/2019 10:47 PM EST AGE/SEX: 63 years / Female INDICATIONS: . Cough, chest congestion. CLINICAL DATA: This is the patient's initial encounter. Patient reports that signs and symptoms have been present for 1 week and indicates a pain score of 10/10. MEDICAL/SURGICAL HISTORY: . Hypercholesterolemia. Hypertension. Anemia. Neuropathy. Vertigo. Sy ncope. Angina. Fibromyalgia. Diabetes. Blood transfusions. . Tubal ligation. Hysterectomy. Spine angel asim. [place] [facility] [place]. . FINDINGS: The heart size is normal. The lungs are clear. No effusion is seen. Spurs are seen in the thoracic sp ine. CONCLUSION: No acute cardiopulmonary process. Electronically signed by: Jackson Magaña MD Board Certified Radiologist 01/10/2019 10:50 PM EST
[2019-01-10 23:26] LABS: Baso % (Auto) 0.6 % (0.0-2.0); Eos # (Auto) 0.1 th/mm3 (0.0-0.4); Eos % (Auto) 1.2 % (0.0-4.0); Hematocrit 32.3 % (35.0-46.0); Hemoglobin 10.2 gm/dL (11.6-15.3); Lymph # (Auto) 3.4 th/mm3 (1.0-4.8); Lymph % (Auto) 43.7 % (9.0-44.0); Mean Corpuscular HGB Conc 31.6 % (32.0-36.0); Mean Corpuscular Hemoglobin 19.6 pg (27.0-34.0); Mean Platelet Volume 8.8 fL (7.0-11.0); Mono # (Auto) 0.5 th/mm3 (0.0-0.9); Mono % (Auto) 6.8 % (0.0-8.0); Neut # (Auto) 3.7 th/mm3 (1.8-7.7); Neut % (Auto) 47.7 % (16.0-70.0); Platelet Count 161 th/mm3 (150-450); Red Blood Count 5.21 mil/mm3 (4.00-5.30); Red Cell Distribution Width 18.1 % (11.6-17.2); White Blood Count 7.9 th/mm3 (4.0-11.0)
[2019-01-10 23:36] LABS: Prothrombin Time 10.3 sec (9.8-11.6)
[2019-01-10 23:50] LABS: Albumin 3.7 g/dL (3.4-5.0); Anion Gap 6 meq/L (5-15); Aspartate Aminotransferase 7 U/L (15-37); Blood Urea Nitrogen 15 mg/dL (7-18); Calcium 9.4 mg/dL (8.5-10.1); Carbon Dioxide 29.9 meq/L (21.0-32.0); Chloride 100 meq/L (98-107); Glomerular Filtration Rate 51 mL/min (>89); Glucose,Random 240 mg/dL (74-106); Magnesium 1.9 mg/dL (1.5-2.5); Potassium 3.8 meq/L (3.5-5.1); Sodium 136 meq/L (136-145)
[2019-01-10 23:51] LABS: Alanine Aminotransferase 15 U/L (10-53)
[2019-01-10 23:55] LABS: Alkaline Phosphatase 91 U/L (45-117); Total Protein 8.3 g/dL (6.4-8.2)
--- NOTE | 2019-01-11 02:46 | CT ---
EXAM DATE: 01/11/2019 2:41 AM EST AGE/SEX: 63 years / Female INDICATIONS: Chest pain and shortness of breath; rule out pulmonary embolus. CLINICAL DATA: This is the patient's initial encounter. Patient reports that signs and symptoms have been present for 1 week and indicates a pain score of 3/10. MEDICAL/SURGICAL HISTORY: Diabetes. Hysterectomy. Tubal ligation. RADIATION DOSE: 10.78 CTDI (mGy) COMPARISON: No prior exams available for comparison. TECHNIQUE: Volumetric scanning was performed using a multi-row detector CT scanner during bolus infu haydee of 69 ml Omnipaque 350 (iohexol) nonionic water-soluble contrast as a single exam dose. The aranza a was post processed with a variety of visualization algorithms including full volume maximum intensi ty projection and sliding thin slab reformation. Using automated exposure control and adjustment of the mA and/or kV according to patient size, radiation dose was kept as low as reasonably achievable t o obtain optimal diagnostic quality images. DICOM format image data is available electronically for review and comparison. FINDINGS: Pulmonary Arteries: No filling defects are seen in the pulmonary arteries out to the subsegmental ve ssels. The left and right pulmonary arteries are normal in diameter. Lung: No infiltrates seen. Effusion: None. Mediastinum: No evidence of mediastinal or hilar adenopathy. Other: The axilla is unremarkable. CONCLUSION: This study is negative for pulmonary embolism. Electronically signed by: Jackson Gomez MD Board Certified Radiologist 01/11/2019 2:45 AM EST
[2019-01-11] MEDS ORDERED: Regadenoson Inj 0.4 MG/5 ML Syringe IV.PUSH ONE (10:13)
--- NOTE | 2019-01-11 10:16 | P.HPCA ---
History of Present Illness Service: Chest pain center Primary Care Physician: Varghese Shukla DO Cardiology in House Neurology Dr. Curtis Ophthalmology Dr. Barrera Endocrinology in [place] Pulmonology in [place] Chief Complaint: Cough and chest pain History of Present Illness: Very complex 63-year-old black lady with multiple issues and multiple hospital emergency room presentations including [facility] in [facility]. About a week ago she was exposed to a grandchild who had an upper respiratory infection and cough. She subsequently developed a cough which is progressed to the current time. She presented to an advanced care clinic yesterday and after evaluation was directed to the hospital. She was told that her heart rate was high and that she needed a CAT scan to see if she had pneumonia. Her chest pain is very atypical its sharp predominantly left chest radiating to her left shoulder. To intermittent and does not seem to be clearly precipitated or relieved by anything other than associated with the cough. She does have some dyspnea on exertion but this seems more consistent with her long-standing pulmonary disease. She has had some intermittent swelling of her lower extremities but this does not seem to be particularly different right now. Her cough is nonproductive she denies fever or chills. Her current presentation is multifactorial including: Poorly controlled diabetes Poorly controlled hypertension Chronic anemia with a history of transfusions Fibromyalgia Chronic neuropathy and pain Hyperlipidemia Pulmonary disease not clearly defined but associated with sleep apnea Unclear endocrinologic disorder Retinopathy and cataracts followed by Dr. Barrera She also has a history of hysterectomy tubal ligation and spinal surgery Review of Systems All other systems reviewed negative except as stated in HPI [facility] - History History Provided By: Patient - Medical History Medical History: Medical History (Last Reviewed 01/10/19 @ 22:15 by Paris Sun DO) Asthma Diabetes Hx of hysterectomy Thalassemia - Surgical History Surgical History: Surgical History (Last Reviewed 01/10/19 @ 22:15 by Paris Sun DO) Hx of tubal ligation - Tobacco History Second Hand Smoke Exposure: No Smoking Status: Never smoker - Alcohol History How Often Do You Have a Drink Containing Alcohol: Never - Substance Use History Substance History: No History of Abuse - Travel History Recent Travel in the [place] Within the Last 8 Weeks: No Recent Travel Out of the Country Within the Last 8 Weeks: No - Immunization History Tetanus Immunization: Unsure Medications and Allergies Active Medications: Active Medications Sodium Chloride (Ns Flush) 2 ml IV.FLUSH UNSCH PRN PRN Reason: FLUSH AFTER USING IV ACCESS Sodium Chloride (Ns Flush) 2 ml IV.FLUSH BID SONNY Sodium Chloride (Ns Flush) 2 ml IV.FLUSH PRN PRN PRN Reason: FLUSH AFTER USING IV ACCESS Allergies Allergy/AdvReac Type Severity Reaction Status Date / Time codeine Allergy Intermediate Rash Verified 01/10/19 21:11 Home Medications Medication Instructions Recorded Confirmed Type albuterol sulfate [ProAir HFA] 2 puff INHALATION Q4-6H PRN 01/11/19 01/11/19 History ascorbic acid (vitamin C) [Vitamin 500 mg PO BID 01/11/19 01/11/19 History C] carvedilol 6.25 mg PO BID 01/11/19 01/11/19 History diphenhydramine HCl [Benadryl] 25 mg PO HS PRN 01/11/19 01/11/19 History docusate sodium 50 mg PO BID 01/11/19 01/11/19 History ergocalciferol (vitamin D2) 50,000 unit PO QWEEK 01/11/19 01/11/19 History [Vitamin D2] fesoterodine [Toviaz] 8 mg PO HS 01/11/19 01/11/19 History fluticasone [Flonase Allergy 1 spray INTRANASAL DAILY 01/11/19 01/11/19 History Relief] gabapentin 500 mg PO TID 01/11/19 01/11/19 History hydroxyzine HCl 50 mg PO TID PRN 01/11/19 01/11/19 History insulin detemir U-100 [Levemir 50 unit SUBCUT BID 01/11/19 01/11/19 History U-100 Insulin] loratadine 10 mg PO DAILY 01/11/19 01/11/19 History methocarbamol 500 mg PO Q8HR 01/11/19 01/11/19 History mupirocin 1 applic TOPICAL BID 01/11/19 01/11/19 History oxycodone-acetaminophen 1 tab PO Q6H PRN 01/11/19 01/11/19 History pantoprazole 40 mg PO BID 01/11/19 01/11/19 History prednisone 10 mg PO BID 01/11/19 01/11/19 History prednisone 20 mg PO AC BREAKFAST 01/11/19 01/11/19 History ranitidine HCl 150 mg PO BID 01/11/19 01/11/19 History topiramate 100 mg PO BID 01/11/19 01/11/19 History triamcinolone acetonide 0.1 % TOPICAL DAILY 01/11/19 01/11/19 History Exam Vital signs: Vital Signs 01/10/19 20:57 01/10/19 23:18 01/11/19 01:10 Temperature 97.9 F Pulse Rate 109 H 100 H Respiratory Rate 20 18 Blood Pressure 125/60 Pulse Oximetry 98 100 01/11/19 07:39 Temperature 98.3 F Pulse Rate 94 H Respiratory Rate 14 Blood Pressure 140/63 Pulse Oximetry 100 Intake & Output 01/10/19 01/11/19 01/11/19 18:59 06:59 18:59 Intake Total 500 / 500 Balance 500 / 500 Weight 88.5 kg Intake: IV 500 / 500 NS Inj 500 ML @ Wide Open IV. 500 / 500 SIG BOLUS ONE Rx#:[id number] Other: Weight On Admission 88.5 kg Narrative: Pleasant obese lady in no current distress Skin warm and dry Head normocephalic atraumatic Eyes PERRLA EOMI with conjunctival injection and mild bilateral cataracts Mouth mucous membranes moist tongue well papillated upper and lower plates in place no lesions Neck supple no JVD masses nodes or bruits Chest diminished breath sounds but no rales wheezes or rhonchi Cardiovascular regular rhythm at a fast rate of about 90 but no gallops rubs or murmurs Abdomen massively obese but no guarding or rebound no tenderness to palpation. Masses cannot be palpated Extremities no clubbing cyanosis or edema Neurologic cranial nerves are grossly intact although auditory uptake and olfactory not tested. Motor appears to be symmetric and equal upper and lower extremities Psychiatric patient seems to be somewhat anxious and possibly depressed but memory is retained and judgment seems to be reasonable Results 01/10/19 22:20 01/10/19 22:20 Cardiac Enzymes 01/10/19 01/10/19 01/11/19 Range/Units 22:20 22:20 00:50 AST 7 L (15-37) U/L Troponin I Less than 0.02 L Less than 0.02 L (0.02-0.05) ng/mL B-Natriuretic Peptide 3 (0-100) pg/mL 01/11/19 Range/Units 04:45 AST (15-37) U/L Troponin I Less than 0.02 L (0.02-0.05) ng/mL B-Natriuretic Peptide (0-100) pg/mL Coagulation 01/10/19 01/10/19 Range/Units 22:20 22:20 PT 10.3 (9.8-11.6) sec B-Natriuretic Peptide 3 (0-100) pg/mL CBC 01/10/19 Range/Units 22:20 WBC 7.9 (4.0-11.0) th/mm3 RBC 5.21 (4.00-5.30) mil/mm3 Hgb 10.2 L (11.6-15.3) gm/dL Hct 32.3 L (35.0-46.0) % Plt Count 161 (150-450) th/mm3 Neut # (Auto) 3.7 (1.8-7.7) th/mm3 Lymph # (Auto) 3.4 (1.0-4.8) th/mm3 [place] # (Auto) 0.5 (0.0-0.9) th/mm3 Eos # (Auto) 0.1 (0.0-0.4) th/mm3 Baso # (Auto) 0.0 (0.0-0.2) th/mm3 Comprehensive Metabolic Panel 01/10/19 Range/Units 22:20 Sodium 136 (136-145) meq/L Potassium 3.8 (3.5-5.1) meq/L Chloride 100 (98-107) meq/L Carbon Dioxide 29.9 (21.0-32.0) meq/L BUN 15 (7-18) mg/dL Creatinine 1.27 H (0.50-1.00) mg/dL Calcium 9.4 (8.5-10.1) mg/dL AST 7 L (15-37) U/L ALT 15 (10-53) U/L Alkaline Phosphatase 91 (45-117) U/L Total Protein 8.3 H (6.4-8.2) g/dL Albumin 3.7 (3.4-5.0) g/dL Intake and Output 01/10/19 01/11/19 01/11/19 22:59 06:59 14:59 Intake Total 500 / 500 Balance 500 / 500 Intake: IV 500 / 500 NS Inj 500 ML @ Wide Open IV. 500 / 500 SIG BOLUS ONE Rx#:[id number] Other: Weight 88.5 kg 88.5 kg Weight On Admission 88.5 kg - Imaging and Cardiology Imaging: Impressions Chest X-Ray 01/10/19 22:06 CONCLUSION: No acute cardiopulmonary process. Chest CTA 01/11/19 22:05 CONCLUSION: This study is negative for pulmonary embolism. Caprini VTE Risk Assessment Caprini VTE Risk Assessment: Moderate/High Risk (score >= 2) (No intervention will be undertaken due to her anemia and potential for possible intervention if stress testing is positive) Caprini Risk Assessment Model: Point Value = 1 Point Value = 2 Point Value = 3 Point Value = 5 Age 41-60 Minor surgery BMI > 25 kg/m2 Swollen legs Varicose veins or History of unexplained or recurrent spontaneous Oral contraceptives or hormone replacement Sepsis (< 1 month) Serious lung disease, including pneumonia (< 1 month) Abnormal pulmonary function Acute myocardial infarction Congestive heart failure (< 1 month) History of inflammatory bowel disease Medical patient at bed rest Age 61-74 Arthroscopic surgery Major open surgery (> 45 min) Laparoscopic surgery (> 45 min) Malignancy Confined to bed (> 72 hours) Immobilizing plaster cast Central venous access Age >= 75 History of VTE Family history of VTE Factor V Leiden Prothrombin 27499C Lupus anticoagulant Anticardiolipin antibodies Elevated serum homocysteine Heparin-induced thrombocytopenia Other congenital or acquired thrombophilia Stroke (< 1 month) Elective arthroplasty Hip, pelvis, or leg fracture Acute spinal cord injury (< 1 month) Prophylaxis Regimen: Total Risk Factor Score Risk Level Prophylaxis Regimen 0-1 Low Early ambulation 2 Moderate Order ONE of the following: *Sequential Compression Device (SCD) *Heparin 5000 units SQ BID 3-4 Higher Order ONE of the following medications: *Heparin 5000 units SQ TID *Enoxaparin/Lovenox 40 mg SQ daily (WT < 150 kg, CrCl > 30 mL/min) *Enoxaparin/Lovenox 30 mg SQ daily (WT < 150 kg, CrCl > 10-29 mL/min) *Enoxaparin/Lovenox 30 mg SQ BID (WT < 150 kg, CrCl > 30 mL/min) AND/OR *Sequential Compression Device (SCD) 5 or more Highest Order ONE of the following medications: *Heparin 5000 units SQ TID (Preferred with Epidurals) *Enoxaparin/Lovenox 40 mg SQ daily (WT < 150 kg, CrCl > 30 mL/min) *Enoxaparin/Lovenox 30 mg SQ daily (WT < 150 kg, CrCl > 10-29 mL/min) *Enoxaparin/Lovenox 30 mg SQ BID (WT < 150 kg, CrCl > 30 mL/min) AND *Sequential Compression Device (SCD) Assessment and Plan - Plan Very complicated lady with multiple hospital on emergency room visits over recent years followed by multiple physicians and on 26 medications. She currently appears to have an upper respiratory infection but does not have pneumonia or other acute issue which would warrant admission. She will be evaluated to rule out ischemic cardiac disease with a Lexiscan and if this is negative she will be discharged to follow-up by her multiple outpatient physicians. If positive she will be admitted for further inpatient evaluation. H&P: Quality - VTE Deep Vein Thrombosis/Pulmonary Embolism Present on Admission: No
[2019-01-11] MEDS ORDERED: Carvedilol 6.25 MG Tablet PO SCH ×2 (11:45→12:45)
[2019-01-11 12:06] VITALS: RESP 16; O2SAT 98
--- NOTE | 2019-01-11 12:56 | ECG ---
Date Performed: 01/11/2019 Time Performed: 04:02:16 PTAGE: 63 years EKG: Sinus rhythm POSSIBLE RIGHT VENTRICULAR CONDUCTION DELAY BORDERLINE ECG Normalization compared to prior tracing PREVIOUS TRACING : 01/10/2019 23.12 DOCTOR: Javier Brush Interpretating Date/Time 01/11/2019 12:53:40
--- NOTE | 2019-01-11 12:59 | ECG ---
Date Performed: 01/10/2019 Time Performed: 23:12:57 PTAGE: 63 years EKG: SINUS TACHYCARDIA NONSPECIFIC T-WAVE ABNORMALITY ABNORMAL RHYTHM ECG No significant change PREVIOUS TRACING : 05/05/2018 19.54 DOCTOR: Javier Brush Interpretating Date/Time 01/11/2019 12:56:02
[2019-01-11] MEDS ORDERED: Methocarbamol 500 MG Tablet PO SCH (14:00)
--- NOTE | 2019-01-11 15:24 | NM ---
EXAM DATE: 01/11/2019 3:16 PM EST AGE/SEX: 63 years / Female INDICATIONS:Angina. . Sub-sternal chest pain radiating to the left shoulder. CLINICAL DATA: This is the patient's initial encounter. Patient reports that signs and symptoms have been present for 1 day and indicates a pain score of 8/10. MEDICAL/SURGICAL HISTORY: Diabetes mellitus type II. Asthma. Hysterectomy. Tubal ligation. COMPARISON: No prior exams available for comparison. DOSE: 8.3 mCi Tc 99m Myoview at rest 27.0 mCi [id number] at stress 0.4 mg Lexiscan STRESS SYMPTOMS: Headache. EJECTION FRACTION: > 70 % TECHNIQUE: The patient underwent pharmacologic stress with infusion of prescribed dose. Continuous ECG tracing was monitored during stress. Gated SPECT imaging was performed after stress and conventi onal SPECT imaging was performed at rest. The examination was performed on a SPECT/CT scanner, both attenuation and non-corrected datasets were reviewed. FINDINGS: Distribution: The maximum perfused segment at stress is in the anterolateral wall. Perfusion Study: The pattern of perfusion at stress is within normal limits. Gated Study: There are intact wall motion and wall thickening without hypokinetic or dyskinetic segm ents. The ejection fraction is calculated at > 70%. RISK CATEGORY: Low (<1% Annual Mortality Rate) CONCLUSION: 1. No reversible perfusion defects to suggest ischemia. 2. Normal ejection fraction. Electronically signed by: Oh Ward MD Board Certified Radiologist 01/11/2019 3:23 PM EST
[2019-01-11 15:30] VITALS: PULSE 108; TEMP 98.5
[2019-01-11 18:05] VITALS: BP 118/58
[2019-01-11] MEDS ORDERED: Famotidine 20 MG Tablet PO SCH (21:00)
[2019-01-11] MEDS ORDERED: Docusate Sodium Liq 100 MG/10 ML UDC PO SCH (21:00)
--- NOTE | 2019-01-12 12:38 | TR ---
Date Performed: 01/11/2019 Time Performed: 13:59:57 DOCTOR: Javier Brush DRUG LIST: CLINICAL HISTORY: ANGINA REASON FOR TEST: Angina REASON FOR ENDING: OBSERVATION: CONCLUSION: Lexiscan stress test was performed under standard four minute protocol. Radionuclide was injected one minute prior to ending the test. No electrocardiographic abormalities were present to suggest ischemia. Nuclear imaging and interpretation are pending. COMMENTS:
[2019-01-12] MEDS ORDERED: Tolterodine Tartrate LA 4 MG Capsule PO SCH (21:00)
== END 2019-01-11 19:30 | disposition home or self-care (01) ==
LOC: NEPD 20:08 → NEDA 20:08 → NEPGCP 01-11 05:53
PROVIDERS: ADMIT Internal Medicine Interventional Cardiology; ATTEND Internal Medicine Interventional Cardiology
DX: G62.9 Polyneuropathy, unspecified; D56.9 Thalassemia, unspecified; M79.7 Fibromyalgia; R07.2 Precordial pain; E11.65 Type 2 diabetes mellitus with hyperglycemia; G47.30 Sleep apnea, unspecified; Z79.4 Long term (current) use of insulin; J45.909 Unspecified asthma, uncomplicated; I10 Essential (primary) hypertension; Z90.710 Acquired absence of both cervix and uterus; Z88.5 Allergy status to narcotic agent; J06.9 Acute upper respiratory infection, unspecified; Z82.49 Family history of ischemic heart disease and other diseases of the circulatory system; E78.5 Hyperlipidemia, unspecified
CPT/HCPCS: 71020; 71046; 71275; 78452; 80053; 82948; 82962; 83520; 83735; 83880; 84484; 85025; 85610; 90760; 93005; 93017; 96360; 99285; A9502; G0378; J2785; J7040; Q9967; Q9969